=== PATIENT | female | born 1995 | race Caucasian/White ===

== ENCOUNTER → 2018-04-15 | Outpatient (CLI) | payer OTHER ==
[2018-04-15 12:08] LABS: BASO % 0.4 % (0.0-1.0); EOS # 0.2 10^3/uL (0.0-0.50); EOS % 2.5 % (0.0-3.0); HEMATOCRIT 36.4 % (36.0-47.0); HEMOGLOBIN 12.5 g/dl (12.0-15.5); IMMATURE GRANULOCYTE % 0.3 % (0-3.0); LYMPH # 1.6 10^3/uL (1.5-6.5); LYMPH % 24.3 % (24.0-44.0); MEAN CORPUSCULAR HEMOGLOBIN 31.3 pg (27.0-33.0); MEAN CORPUSCULAR HGB CONC 34.3 g/dl (32.0-36.5); MEAN CORPUSCULAR VOLUME 91.2 fl (80.0-96.0); MONO # 0.5 10^3/uL (0.0-0.8); NEUTROPHILS # 4.4 10^3/uL (1.8-7.7); NEUTROPHILS % 64.5 % (36.0-66.0); PLATELET COUNT, AUTOMATED 237 10^3/uL (150-450); RED BLOOD COUNT 3.99 10^6/uL (4.00-5.40); RED CELL DISTRIBUTION WIDTH 12.7 % (11.5-14.5); WHITE BLOOD COUNT 6.8 10^3/uL (4.0-10.0)
[2018-04-15 12:33] LABS: ESTIMATED AVERAGE GLUCOSE 100 MG/DL (60-110); HEMOGLOBIN A1c 5.1 %
[2018-04-15 12:37] LABS: ERYTHROCYTE SEDIMENTATION RATE 16 mm/hr (0-20)
[2018-04-15 13:21] LABS: ALBUMIN 3.8 GM/DL (3.2-5.2); ALBUMIN/GLOBULIN RATIO 1.15 (1.00-1.93); ALKALINE PHOSPHATASE 75 U/L (45-117); ALT/SGPT 23 U/L (12-78); ANION GAP 9 MEQ/L (8-16); AST/SGOT 12 U/L (7-37); BILIRUBIN,TOTAL 0.5 MG/DL (0.2-1.0); BLOOD UREA NITROGEN 11 MG/DL (7-18); C REACTIVE PROTEIN QUANTITATIV 0.55 MG/DL (0.00-0.30); CALCIUM LEVEL 8.8 MG/DL (8.5-10.1); CARBON DIOXIDE LEVEL 27 MEQ/L (21-32); CHLORIDE LEVEL 107 MEQ/L (98-107); CHOLESTEROL LEVEL 182 MG/DL (<200); CHOLESTEROL RISK RATIO 2.935 (<5); CREATININE FOR GFR 0.58 MG/DL (0.55-1.30); FREE T4 0.81 NG/DL (0.76-1.46); GLOMERULAR FILTRATION RATE > 60.0 (>60); GLUCOSE, FASTING 79 MG/DL (70-100); HDL CHOLESTEROL 62 MG/DL (>40); NON-HDL-C 120 MG/DL; SODIUM LEVEL 143 MEQ/L (136-145); THYROID STIMULATING HORMONE 0.775 uIU/ML (0.358-3.740); TOTAL PROTEIN 7.1 GM/DL (6.4-8.2); TRIGLYCERIDES LEVEL 85 MG/DL (<150)
== END ==
LOC: M WUC 10:41
DX: M54.42 Lumbago with sciatica, left side (principal); F33.1 Major depressive disorder, recurrent, moderate; Z68.30 Body mass index [BMI] 30.0-30.9, adult
CPT/HCPCS: 84443

== ENCOUNTER 2018-04-24 18:11 | Emergency (ER) | payer OTHER ==
[2018-04-24] MEDS: NS 1,000 ML IV (21:12)
[2018-04-24] MEDS: KETOROLAC 30 MG/ML VIAL (J1885) IV (21:13)
[2018-04-24] MEDS: ONDANSETRON 4MG/2ML VIAL (J2405) IV (21:13)
[2018-04-24 21:25] LABS: BASO % 0.2 % (0.0-1.0); EOS % 0.2 % (0.0-3.0); HEMATOCRIT 38.5 % (36.0-47.0); HEMOGLOBIN 13.1 g/dl (12.0-15.5); IMMATURE GRANULOCYTE % 0.4 % (0-3.0); LYMPH # 0.9 10^3/uL (1.5-6.5); LYMPH % 7.5 % (24.0-44.0); MEAN CORPUSCULAR HEMOGLOBIN 31.1 pg (27.0-33.0); MEAN CORPUSCULAR VOLUME 91.4 fl (80.0-96.0); MONO # 0.4 10^3/uL (0.0-0.8); MONO % 3.5 % (0.0-5.0); NEUTROPHILS # 10.9 10^3/uL (1.8-7.7); NEUTROPHILS % 88.2 % (36.0-66.0); PLATELET COUNT, AUTOMATED 216 10^3/uL (150-450); RED BLOOD COUNT 4.21 10^6/uL (4.00-5.40); RED CELL DISTRIBUTION WIDTH 12.7 % (11.5-14.5); WHITE BLOOD COUNT 12.4 10^3/uL (4.0-10.0)
[2018-04-24 21:46] LABS: CONTROL LINE HCG INT CTR LINE PRESENT; HCG, SERUM QUALITATIVE NEGATIVE (NEGATIVE)
[2018-04-24 21:54] LABS: ALBUMIN 4.1 GM/DL (3.2-5.2); ALBUMIN/GLOBULIN RATIO 0.98 (1.00-1.93); ALKALINE PHOSPHATASE 72 U/L (45-117); ALT/SGPT 18 U/L (12-78); ANION GAP 11 MEQ/L (8-16); AST/SGOT 13 U/L (7-37); BILIRUBIN,DIRECT 0.1 MG/DL (0.0-0.2); BILIRUBIN,TOTAL 0.5 MG/DL (0.2-1.0); BLOOD UREA NITROGEN 13 MG/DL (7-18); CALCIUM LEVEL 9.3 MG/DL (8.5-10.1); CARBON DIOXIDE LEVEL 26 MEQ/L (21-32); CHLORIDE LEVEL 104 MEQ/L (98-107); CREATININE FOR GFR 0.68 MG/DL (0.55-1.30); GLOMERULAR FILTRATION RATE > 60.0 (>60); GLUCOSE, FASTING 96 MG/DL (70-100); LIPASE 101 U/L (73-393); POTASSIUM SERUM 3.8 MEQ/L (3.5-5.1); SODIUM LEVEL 141 MEQ/L (136-145); TOTAL PROTEIN 8.3 GM/DL (6.4-8.2)
== END 2018-04-25 00:29 | disposition home or self-care (01) ==
LOC: M ED 04-25 00:29
DX: R13.19 Other dysphagia (principal); F31.9 Bipolar disorder, unspecified; Z79.899 Other long term (current) drug therapy; Z88.0 Allergy status to penicillin; Z88.8 Allergy status to other drugs, medicaments and biological substances
CPT/HCPCS: J2405

== ENCOUNTER → 2018-07-15 | Outpatient (REF) | payer MEDICAID ==
[2018-07-15 17:19] LABS: CHLAMYDIA DNA AMPLIFICATION NEGATIVE (NEGATIVE); GC DNA AMPLIFICATION NEGATIVE (NEGATIVE)
== END ==
LOC: M SFHCWAGY 13:35
DX: Z12.4 Encounter for screening for malignant neoplasm of cervix (principal); Z11.3 Encounter for screening for infections with a predominantly sexual mode of transmission
CPT/HCPCS: 88142

== ENCOUNTER → 2018-09-02 | Outpatient (CLI) | payer MEDICAID ==
[~2018-09-02] MED LIST: ABIL10TA9; CELE20TA; PROP10TA56
--- NOTE | 2018-09-02 15:01 | REP ---
Lumbar spine series: Five views. History: Pain. No known injury. Findings: Lumbar vertebral body heights are preserved. Alignment is normal. Pedicles and posterior elements are intact. There is no evidence of spondylolysis or spondylolisthesis. Disc spaces are maintained. Sacrum and SI joints are unremarkable as visualized. Psoas margins are symmetric. Impression: Negative lumbar spine radiographs. Electronically Signed by Justyn Lew MD 09/02/2018 02:51 P
== END ==
LOC: M WUC 14:25
PROVIDERS: ATTEND Physician Assistant
DX: M54.5 Low back pain (principal)

== ENCOUNTER → 2018-11-04 | Outpatient (CLI) | payer MEDICAID ==
--- NOTE | 2018-11-04 11:41 | REP ---
KUB, ONE VIEW: HISTORY: Epigastric pain. A small amount of air is present in small and large intestine. There are no air fluid levels or dilated loops of intestine. There is no pneumoperitoneum. A moderate amount of stool is present in the colon. IMPRESSION: Nonspecific bowel gas pattern. Electronically Signed by Wali Cheatham MD 11/04/2018 11:42 A
== END ==
LOC: M SMT 10:58
PROVIDERS: ATTEND Physician Assistant Medical
DX: R10.13 Epigastric pain (principal)

== ENCOUNTER → 2018-11-04 | Outpatient (REF) | payer MEDICAID ==
[2018-11-04 12:24] LABS: BASO % 0.3 % (0.0-1.0); EOS # 0.2 10^3/uL (0.0-0.50); EOS % 2.4 % (0.0-3.0); HEMATOCRIT 37.6 % (36.0-47.0); HEMOGLOBIN 12.6 g/dl (12.0-15.5); LYMPH # 1.9 10^3/uL (1.5-6.5); LYMPH % 22.4 % (24.0-44.0); MEAN CORPUSCULAR HEMOGLOBIN 30.1 pg (27.0-33.0); MEAN CORPUSCULAR HGB CONC 33.5 g/dl (32.0-36.5); MONO # 0.5 10^3/uL (0.0-0.8); MONO % 5.9 % (0.0-5.0); NEUTROPHILS # 5.9 10^3/uL (1.8-7.7); NEUTROPHILS % 68.8 % (36.0-66.0); PLATELET COUNT, AUTOMATED 223 10^3/uL (150-450); RED BLOOD COUNT 4.18 10^6/uL (4.00-5.40); WHITE BLOOD COUNT 8.6 10^3/uL (4.0-10.0)
[2018-11-04 12:40] LABS: ALBUMIN 3.8 GM/DL (3.2-5.2); ALT/SGPT 16 U/L (12-78); AMYLASE 38 U/L (25-115); BILIRUBIN,TOTAL 0.4 MG/DL (0.2-1.0); BLOOD UREA NITROGEN 7 MG/DL (7-18); CALCIUM LEVEL 8.4 MG/DL (8.5-10.1); CARBON DIOXIDE LEVEL 27 MEQ/L (21-32); CHLORIDE LEVEL 107 MEQ/L (98-107); CREATININE FOR GFR 0.59 MG/DL (0.55-1.30); GLOMERULAR FILTRATION RATE > 60.0 (>60); GLUCOSE, FASTING 89 MG/DL (70-100); LIPASE 106 U/L (73-393); POTASSIUM SERUM 3.8 MEQ/L (3.5-5.1); SODIUM LEVEL 140 MEQ/L (136-145); TOTAL PROTEIN 6.9 GM/DL (6.4-8.2)
== END ==
LOC: M SFHCPLAZ 10:12
PROVIDERS: ATTEND Physician Assistant Medical
DX: R10.13 Epigastric pain (principal)

== ENCOUNTER 2018-12-18 20:32 | Emergency (ER) | payer MEDICAID ==
[2018-12-18 21:05] VITALS: BP 139/85
== END 2018-12-18 21:54 | disposition home or self-care (01) ==
LOC: M ED 20:32
DX: F41.1 Generalized anxiety disorder (principal); F43.0 Acute stress reaction; F99 Mental disorder, not otherwise specified; F17.200 Nicotine dependence, unspecified, uncomplicated; Z88.0 Allergy status to penicillin; Z88.8 Allergy status to other drugs, medicaments and biological substances

== ENCOUNTER → 2018-12-30 | Outpatient (REF) | payer MEDICAID ==
[2018-12-30 16:55] LABS: BASO % 0.4 % (0.0-1.0); EOS # 0.3 10^3/uL (0.0-0.50); EOS % 2.9 % (0.0-3.0); HEMATOCRIT 37.4 % (36.0-47.0); HEMOGLOBIN 12.5 g/dl (12.0-15.5); LYMPH # 2.3 10^3/uL (1.5-6.5); LYMPH % 23.5 % (24.0-44.0); MEAN CORPUSCULAR HEMOGLOBIN 30.1 pg (27.0-33.0); MEAN CORPUSCULAR HGB CONC 33.4 g/dl (32.0-36.5); MEAN CORPUSCULAR VOLUME 90.1 fl (80.0-96.0); MONO # 0.6 10^3/uL (0.0-0.8); MONO % 6.2 % (0.0-5.0); NEUTROPHILS # 6.4 10^3/uL (1.8-7.7); NEUTROPHILS % 66.7 % (36.0-66.0); PLATELET COUNT, AUTOMATED 224 10^3/uL (150-450); RED BLOOD COUNT 4.15 10^6/uL (4.00-5.40); WHITE BLOOD COUNT 9.6 10^3/uL (4.0-10.0)
[2018-12-30 17:00] LABS: ALBUMIN 4.2 GM/DL (3.2-5.2); ALT/SGPT 15 U/L (12-78); BILIRUBIN,TOTAL 0.4 MG/DL (0.2-1.0); BLOOD UREA NITROGEN 12 MG/DL (7-18); CALCIUM LEVEL 8.9 MG/DL (8.5-10.1); CARBON DIOXIDE LEVEL 23 MEQ/L (21-32); CHLORIDE LEVEL 110 MEQ/L (98-107); CREATININE FOR GFR 0.64 MG/DL (0.55-1.30); GLOMERULAR FILTRATION RATE > 60.0 (>60); GLUCOSE, FASTING 99 MG/DL (70-100); POTASSIUM SERUM 3.6 MEQ/L (3.5-5.1); SODIUM LEVEL 140 MEQ/L (136-145)
[2018-12-30 20:36] LABS: ERYTHROCYTE SEDIMENTATION RATE 17 mm/hr (0-20)
== END ==
LOC: M SFHCPLAZ 14:15
PROVIDERS: ATTEND Physician Assistant Medical
DX: R10.13 Epigastric pain (principal); K61.0 Anal abscess

== ENCOUNTER → 2019-01-06 | Outpatient (CLI) | payer MEDICAID ==
[~2019-01-06] MED LIST changes: +GASTROGRAFIN SOLUTION 30ML (Q9963) As Ordered ONE; +ISOVUE-370 76% 100ML VIAL (Q9967) As Ordered ONE
--- NOTE | 2019-01-06 14:06 | REP ---
CT of the abdomen with bowel contrast followed by CT of the abdomen pelvis with IV and bowel contrast: There are no comparisons. The studies performed for epigastric pain. The visualized lung ellison are unremarkable. After IV contrast there are a small 6 ml hypodensity anteriorly in the dome of the hepatic right lobe and a small 5 mm hypodensity posteriorly in the dome of the hepatic right lobe. These are too small to further characterize. There are no comparison studies. The hepatic parenchyma is otherwise homogeneous. The gallbladder, pancreas and spleen are normal size, homogeneous and are all. The adrenals are unremarkable. There is no hydronephrosis. There are no renal calculi. There is no perinephric stranding. There are no solid or cystic renal masses. There is no bowel distension or obstruction. No inflammatory changes in the mesentery. There is diastases of the rectus abdominus with slight anterior bulging. Pelvis: The cecum is on a signed and mesentery and has turned posteriorly with the tip pointing cephalad. The appendix is positioned at the tip of the hepatic right lobe. The appendix has an unremarkable appearance. The uterus is unremarkable. The left adnexa is unremarkable. No right ovary is identified with certainty. This should be correlated with clinical history. There is no ascites or adenopathy. The bladder is unremarkable. There is L5 S1 degenerative disc disease. Impression: There are two small hepatic lesions as described, nonspecific and cannot be further characterized by CT. The appendix is adjacent to the inferior tip of the hepatic right lobe as an anatomic variant but otherwise unremarkable. The left ovary is unremarkable. The right ovary cannot be identified. There is no mass, adenopathy or ascites. No inflammatory changes in the mesentery. No hydronephrosis. No renal or ureteral calculi. L5 S1 degenerative disc disease. Electronically Signed by Ariel Costa MD 01/06/2019 01:57 P
== END ==
LOC: M RAD 11:13
PROVIDERS: ATTEND Physician Assistant Medical
DX: D13.4 Benign neoplasm of liver (principal); M51.37 Other intervertebral disc degeneration, lumbosacral region
CPT/HCPCS: 74178; Q9963; Q9967

== ENCOUNTER → 2019-01-21 | Outpatient (CLI) | payer MEDICAID ==
[~2019-01-21] MED LIST changes: -GASTROGRAFIN SOLUTION 30ML (Q9963) As Ordered ONE; -ISOVUE-370 76% 100ML VIAL (Q9967) As Ordered ONE
--- NOTE | 2019-01-21 12:31 | REP ---
ULTRASOUND LEFT THIGH: Real-time sonographic evaluation of the left medial thigh performed in the region of a palpable lump, where the patient is experiencing pain. No discrete sonographic abnormality is seen. There is no fluid collection. No cystic or solids mass is seen. IMPRESSION: Negative ultrasound medial left thigh at the site of the palpable lump and pain. Electronically Signed by Ariel Elkins MD 01/21/2019 02:14 P
== END ==
LOC: M RAD 10:31
PROVIDERS: ATTEND Physician Assistant Medical
DX: K61.0 Anal abscess (principal)

== ENCOUNTER 2019-03-04 10:23 | Emergency (ER) | payer MEDICAID ==
[~2019-03-04] VITALS: Ht 162.6 cm; Wt 76.5 kg
[2019-03-04] MEDS ORDERED: NS 1,000 ML IV ONE (11:15)
[2019-03-04 11:41] LABS: BASO % 0.5 % (0.0-1.0); EOS # 0.2 10^3/uL (0.0-0.50); EOS % 2.6 % (0.0-3.0); HEMATOCRIT 39.6 % (36.0-47.0); HEMOGLOBIN 13.1 g/dl (12.0-15.5); LYMPH # 1.8 10^3/uL (1.5-6.5); LYMPH % 26.7 % (24.0-44.0); MEAN CORPUSCULAR HEMOGLOBIN 29.9 pg (27.0-33.0); MEAN CORPUSCULAR HGB CONC 33.1 g/dl (32.0-36.5); MEAN CORPUSCULAR VOLUME 90.4 fl (80.0-96.0); MONO # 0.5 10^3/uL (0.0-0.8); MONO % 7.1 % (0.0-5.0); NEUTROPHILS # 4.2 10^3/uL (1.8-7.7); NEUTROPHILS % 62.9 % (36.0-66.0); PLATELET COUNT, AUTOMATED 213 10^3/uL (150-450); RED BLOOD COUNT 4.38 10^6/uL (4.00-5.40); WHITE BLOOD COUNT 6.6 10^3/uL (4.0-10.0)
[2019-03-04 12:08] LABS: ALBUMIN 4.3 GM/DL (3.2-5.2); ALT/SGPT 16 U/L (12-78); BILIRUBIN,DIRECT 0.1 MG/DL (0.0-0.2); BILIRUBIN,TOTAL 0.4 MG/DL (0.2-1.0); BLOOD UREA NITROGEN 9 MG/DL (7-18); CALCIUM LEVEL 9.1 MG/DL (8.5-10.1); CARBON DIOXIDE LEVEL 28 MEQ/L (21-32); CHLORIDE LEVEL 109 MEQ/L (98-107); CREATININE FOR GFR 0.59 MG/DL (0.55-1.30); GLOMERULAR FILTRATION RATE > 60.0 (>60); GLUCOSE, FASTING 92 MG/DL (70-100); LIPASE 94 U/L (73-393); POTASSIUM SERUM 4.4 MEQ/L (3.5-5.1); SODIUM LEVEL 142 MEQ/L (136-145); TOTAL PROTEIN 7.5 GM/DL (6.4-8.2)
[2019-03-04 12:17] LABS: HEPATITIS B SURFACE ANTIBODY POSITIVE (POSITIVE)
[2019-03-04 12:20] LABS: HCG, SERUM QUALITATIVE NEGATIVE (NEGATIVE)
[2019-03-04 12:28] LABS: HEPATITIS B SURFACE ANTIGEN NEGATIVE (NEGATIVE)
[2019-03-04 12:56] LABS: HEPATITIS C VIRUS ABY INDEX 0.7 INDEX (<0.8); HIV 1&2 SCREEN CENTAUR NEGATIVE (NEGATIVE)
[2019-03-04] MEDS ORDERED: FLUCONAZOLE 50MG TABLET PO ONE (14:30)
[2019-03-04 14:33] LABS: CHLAMYDIA DNA AMPLIFICATION NEGATIVE (NEGATIVE); GC DNA AMPLIFICATION NEGATIVE (NEGATIVE)
[2019-03-04 15:27] VITALS: BP 134/67
== END 2019-03-04 15:30 | disposition home or self-care (01) ==
LOC: M ED 10:23
DX: B37.3 Candidiasis of vulva and vagina (principal); T76.21XA Adult sexual abuse, suspected, initial encounter; R19.7 Diarrhea, unspecified; F41.9 Anxiety disorder, unspecified; F32.9 Major depressive disorder, single episode, unspecified; K59.00 Constipation, unspecified; F81.9 Developmental disorder of scholastic skills, unspecified; Z88.0 Allergy status to penicillin; Z88.8 Allergy status to other drugs, medicaments and biological substances

== ENCOUNTER 2019-03-06 14:54 | Emergency (ER) | payer MEDICAID ==
[~2019-03-06] VITALS: Ht 162.6 cm; Wt 75.7 kg
[2019-03-06] MEDS ORDERED: OMEP10CASR PO (15:04)
[2019-03-06 17:24] LABS: HEMATOCRIT 38.4 % (36.0-47.0); HEMOGLOBIN 12.6 g/dl (12.0-15.5); MEAN CORPUSCULAR HEMOGLOBIN 30.5 pg (27.0-33.0); MEAN CORPUSCULAR HGB CONC 32.8 g/dl (32.0-36.5); PLATELET COUNT, AUTOMATED 183 10^3/uL (150-450); RED BLOOD COUNT 4.13 10^6/uL (4.00-5.40); WHITE BLOOD COUNT 8.7 10^3/uL (4.0-10.0)
[2019-03-06 17:41] LABS: AMPHETAMINES LEVEL URINE NEGATIVE (NEGATIVE); BARBITURATES URINE NEGATIVE (NEGATIVE); BENZODIAZEPINES URINE NEGATIVE (NEGATIVE); CANNABINOIDS URINE NEGATIVE (NEGATIVE); COCAINE METABOLITE URINE NEGATIVE (NEGATIVE); METHADONE URINE NEGATIVE (NEGATIVE); OPIATES URINE NEGATIVE (NEGATIVE); PHENCYCLIDINE URINE NEGATIVE (NEGATIVE)
[2019-03-06 17:47] LABS: HCG, SERUM QUALITATIVE NEGATIVE (NEGATIVE)
[2019-03-06 18:07] LABS: ACETAMINOPHEN LEVEL < 2.0 UG/ML (10.0-30.0); ALBUMIN 4.2 GM/DL (3.2-5.2); ALT/SGPT 19 U/L (12-78); BILIRUBIN,DIRECT < 0.1 MG/DL (0.0-0.2); BILIRUBIN,TOTAL 0.2 MG/DL (0.2-1.0); BLOOD UREA NITROGEN 9 MG/DL (7-18); CALCIUM LEVEL 8.7 MG/DL (8.5-10.1); CARBON DIOXIDE LEVEL 26 MEQ/L (21-32); CHLORIDE LEVEL 107 MEQ/L (98-107); CREATININE FOR GFR 0.61 MG/DL (0.55-1.30); ETHYL ALCOHOL (ETHANOL) < 0.003 % (0.000-0.010); GLOMERULAR FILTRATION RATE > 60.0 (>60); GLUCOSE, FASTING 84 MG/DL (70-100); POTASSIUM SERUM 3.4 MEQ/L (3.5-5.1); SALICYLATE LEVEL < 1.7 MG/DL (5.0-30.0); SODIUM LEVEL 142 MEQ/L (136-145); THYROID STIMULATING HORMONE 0.677 uIU/ML (0.358-3.740); TOTAL PROTEIN 7.3 GM/DL (6.4-8.2)
[2019-03-06 19:25] VITALS: BP 123/65
== END 2019-03-06 19:28 | disposition home or self-care (01) ==
LOC: M ED 14:54
DX: F43.20 Adjustment disorder, unspecified (principal); F33.9 Major depressive disorder, recurrent, unspecified; F43.10 Post-traumatic stress disorder, unspecified; Z79.899 Other long term (current) drug therapy; Z88.0 Allergy status to penicillin; Z88.8 Allergy status to other drugs, medicaments and biological substances; Z87.891 Personal history of nicotine dependence
CPT/HCPCS: 36415; 80048; 80076; 80307; 84443; 84703; 85027; 99284; G0480

== ENCOUNTER → 2019-03-17 | Outpatient (REF) | payer MEDICAID ==
[~2019-03-17] MED LIST changes: +OMEP10CASR PO
[2019-03-17 16:59] LABS: AMORPHOUS SEDIMENT MODERATE (NEGATIVE); APPEARANCE, URINE TURBID (CLEAR); BACTERIA, URINE AUTO NEGATIVE (NEGATIVE); BILIRUBIN, URINE AUTO NEGATIVE (NEGATIVE); BLOOD, URINE BLOOD 1+ (NEGATIVE); COLOR, URINE YELLOW (YELLOW); GLUCOSE, URINE (UA) AUTO NEGATIVE (NEGATIVE); KETONE, URINE AUTO NEGATIVE (NEGATIVE); LEUKOCYTE ESTERASE, URINE AUTO NEGATIVE (NEGATIVE); NITRITE, URINE AUTO NEGATIVE (NEGATIVE); PROTEIN, URINE AUTO NEGATIVE (NEGATIVE); RBC, URINE AUTO 0 /HPF (0-3); SPECIFIC GRAVITY URINE AUTO 1.028 (1.002-1.035); SQUAMOUS EPITHELIAL CELL UR AU 0 /HPF (0-6); UROBILINOGEN, URINE AUTO 0.2 mg/dL (0.0-2.0); WBC, URINE AUTO 0 /HPF (0-3)
== END ==
LOC: M LAB REF 15:38
PROVIDERS: ATTEND Obstetrics & Gynecology
DX: R39.89 Other symptoms and signs involving the genitourinary system (principal)

== ENCOUNTER → 2019-03-25 | Outpatient (CLI) | payer MEDICAID ==
[~2019-03-25] MED LIST changes: +E-Z-GAS II EFFERVESCENT PACKET (SODIUM BICARB./CITRIC ACID/SIMETHICONE) As Ordered ONE; +E-Z-HD 98% w/w 340GM SUSP BTL As Ordered ONE; +E-Z-PAQUE 96% w/w SUSP 176GM BTL As Ordered ONE
--- NOTE | 2019-03-25 17:30 | REP ---
UPPER GI AIR CONTRAST AND SMALL BOWEL FOLLOW THROUGH The procedure was performed under the direct supervision of Dr. Costa. The images were reviewed with Dr. Costa The furnace operator oil or gas film shows no organomegaly or pathological masses. The intestinal gas pattern is non-specific. Liquid barium and gas producing crystals were given in the erect position as well as liquid barium in the prone oblique position in order to perform a double contrast upper GI examination. Additionally liquid barium was given at the end of the examination in order to perform a small bowel follow through. The oral and pharyngeal stages of deglutition are unremarkable. Esophageal transport is prompt and efficient and there is no esophagitis, stricture, mucosal ring or hiatal hernia. Gastroesophageal reflux is not demonstrated on this examination. In The stomach lopez are normally outlined . The rugal folds are smooth and regular. There is no gastritis neoplasm or ulcer disease. The duodenal lpoez are normally outlined . The mucosal folds are smooth and regular. There is no duodenitis pancreatitis peptic ulcer disease or neoplasm. The visualized portion of the proximal small bowel appears normal in course and caliber. The barium column was followed through the small bowel to the level of the terminal ileum. Small bowel transit time is approximately 15 minutes . During fluoroscopy gentle palpation shows all loops are freely movable and pliable. There are no fixed or angulated loops. The small bowel mucosal pattern is normal in course and caliber. There is no transition to suggest a partial small-bowel obstruction. Spot filming of the terminal ileum shows it to be unremarkable. Impression: Essentially unremarkable double contrast upper GI and small bowel follow through examination. 1.6 minutes of fluoro time was utilized for this procedure. Reviewed by CK Niño 03/25/2019 04:23 P Electronically Signed by Ariel Costa MD 03/25/2019 05:21 P
== END ==
LOC: M RAD 09:33
PROVIDERS: ATTEND Physician Assistant Medical
DX: R10.13 Epigastric pain (principal)

== ENCOUNTER → 2019-04-03 | Outpatient (REF) | payer MEDICAID ==
[~2019-04-03] MED LIST changes: -E-Z-GAS II EFFERVESCENT PACKET (SODIUM BICARB./CITRIC ACID/SIMETHICONE) As Ordered ONE; -E-Z-HD 98% w/w 340GM SUSP BTL As Ordered ONE; -E-Z-PAQUE 96% w/w SUSP 176GM BTL As Ordered ONE
[2019-04-03 13:04] LABS: APPEARANCE, URINE HAZY (CLEAR); BACTERIA, URINE AUTO NEGATIVE (NEGATIVE); BILIRUBIN, URINE AUTO NEGATIVE (NEGATIVE); BLOOD, URINE BLOOD NEGATIVE (NEGATIVE); COLOR, URINE YELLOW (YELLOW); GLUCOSE, URINE (UA) AUTO NEGATIVE (NEGATIVE); KETONE, URINE AUTO NEGATIVE (NEGATIVE); LEUKOCYTE ESTERASE, URINE AUTO NEGATIVE (NEGATIVE); MUCUS, URINE SMALL (NEGATIVE); NITRITE, URINE AUTO NEGATIVE (NEGATIVE); PROTEIN, URINE AUTO NEGATIVE (NEGATIVE); RBC, URINE AUTO 4 /HPF (0-3); SPECIFIC GRAVITY URINE AUTO 1.025 (1.002-1.035); SQUAMOUS EPITHELIAL CELL UR AU 5 /HPF (0-6); UROBILINOGEN, URINE AUTO 0.2 mg/dL (0.0-2.0); WBC, URINE AUTO 1 /HPF (0-3)
== END ==
LOC: M SFHCPLAZ 12:23
PROVIDERS: ATTEND Physician Assistant Medical
DX: R30.0 Dysuria (principal)

== ENCOUNTER → 2019-05-01 | Outpatient (REF) | payer MEDICAID ==
[2019-05-01 14:02] LABS: APPEARANCE, URINE HAZY (CLEAR); BACTERIA, URINE AUTO 1+ (NEGATIVE); BILIRUBIN, URINE AUTO NEGATIVE (NEGATIVE); BLOOD, URINE BLOOD 1+ (NEGATIVE); COLOR, URINE YELLOW (YELLOW); GLUCOSE, URINE (UA) AUTO NEGATIVE (NEGATIVE); KETONE, URINE AUTO NEGATIVE (NEGATIVE); LEUKOCYTE ESTERASE, URINE AUTO NEGATIVE (NEGATIVE); MUCUS, URINE SMALL (NEGATIVE); NITRITE, URINE AUTO NEGATIVE (NEGATIVE); PROTEIN, URINE AUTO NEGATIVE (NEGATIVE); RBC, URINE AUTO 7 /HPF (0-3); SQUAMOUS EPITHELIAL CELL UR AU 4 /HPF (0-6); UROBILINOGEN, URINE AUTO 0.2 mg/dL (0.0-2.0); WBC, URINE AUTO 1 /HPF (0-3)
[2019-05-01 15:08] LABS: CHLAMYDIA DNA AMPLIFICATION NEGATIVE (NEGATIVE); GC DNA AMPLIFICATION NEGATIVE (NEGATIVE)
== END ==
LOC: M LAB REF 12:46
PROVIDERS: ATTEND Physician Assistant
DX: N76.0 Acute vaginitis (principal)

== ENCOUNTER 2019-08-08 22:41 | Emergency (ER) | payer MEDICAID ==
[~2019-08-08] VITALS: Ht 162.6 cm; Wt 81.8 kg
[2019-08-08] MEDS ORDERED: GI COCKTAIL 50ML BTL(HYOSCYAMINE/MAALOX/LIDOCAINE VISCOUS)(1:3:1) PO ONE (23:15)
[2019-08-08] MEDS ORDERED: METOCLOPRAMIDE INJ 10MG/2ML VIAL (J2765) IV ONE (23:15)
[2019-08-08] MEDS ORDERED: NS 1,000 ML IV ONE (23:15)
[2019-08-08 23:30] LABS: BASO % 0.3 % (0.0-1.0); EOS # 0.1 10^3/uL (0.0-0.5); EOS % 0.6 % (0.0-3.0); HEMATOCRIT 42.2 % (36.0-47.0); HEMOGLOBIN 14.3 g/dl (12.0-15.5); LYMPH # 0.7 10^3/uL (1.5-5.0); MEAN CORPUSCULAR HEMOGLOBIN 30.3 pg (27.0-33.0); MEAN CORPUSCULAR HGB CONC 33.9 g/dl (32.0-36.5); MEAN CORPUSCULAR VOLUME 89.4 fl (80.0-96.0); MONO # 0.8 10^3/uL (0.0-0.8); MONO % 5.5 % (0.0-5.0); NEUTROPHILS # 12.6 10^3/uL (1.5-8.5); NEUTROPHILS % 88.3 % (36.0-66.0); PLATELET COUNT, AUTOMATED 213 10^3/uL (150-450); RED BLOOD COUNT 4.72 10^6/uL (4.00-5.40); WHITE BLOOD COUNT 14.3 10^3/uL (4.0-10.0)
[2019-08-08 23:57] LABS: ALBUMIN 4.2 GM/DL (3.2-5.2); ALT/SGPT 13 U/L (12-78); BILIRUBIN,DIRECT 0.2 MG/DL (0.0-0.2); BILIRUBIN,TOTAL 0.6 MG/DL (0.2-1.0); BLOOD UREA NITROGEN 13 MG/DL (7-18); CALCIUM LEVEL 8.9 MG/DL (8.5-10.1); CARBON DIOXIDE LEVEL 24 MEQ/L (21-32); CHLORIDE LEVEL 107 MEQ/L (98-107); CREATININE FOR GFR 0.69 MG/DL (0.55-1.30); GLOMERULAR FILTRATION RATE > 60.0 (>60); GLUCOSE, FASTING 101 MG/DL (70-100); LIPASE 79 U/L (73-393); SODIUM LEVEL 141 MEQ/L (136-145); TOTAL PROTEIN 7.5 GM/DL (6.4-8.2)
[2019-08-09] MEDS ORDERED: REGL10TA6 PO (00:53)
[2019-08-09 01:19] VITALS: BP 110/66
[2019-08-09] MEDS ORDERED: MORPHINE 2 MG/ML 1ML VIAL (J2270) IV ONE (01:30)
== END 2019-08-09 01:23 | disposition home or self-care (01) ==
LOC: M ED 22:41
DX: A08.4 Viral intestinal infection, unspecified (principal); F43.10 Post-traumatic stress disorder, unspecified; K59.00 Constipation, unspecified; K21.9 Gastro-esophageal reflux disease without esophagitis; Z88.0 Allergy status to penicillin; Z88.8 Allergy status to other drugs, medicaments and biological substances
CPT/HCPCS: 80048; 80076; 83690; 85025; 87040; 87507; 96361; 96374; 99284; J2765

== ENCOUNTER → 2019-08-25 | Outpatient (REF) | payer MEDICAID ==
[~2019-08-25] MED LIST changes: +REGL10TA6 PO
[2019-08-25 13:09] LABS: APPEARANCE, URINE HAZY (CLEAR); BACTERIA, URINE AUTO NEGATIVE (NEGATIVE); BILIRUBIN, URINE AUTO NEGATIVE (NEGATIVE); BLOOD, URINE BLOOD NEGATIVE (NEGATIVE); COLOR, URINE YELLOW (YELLOW); GLUCOSE, URINE (UA) AUTO NEGATIVE (NEGATIVE); KETONE, URINE AUTO NEGATIVE (NEGATIVE); LEUKOCYTE ESTERASE, URINE AUTO NEGATIVE (NEGATIVE); MUCUS, URINE SMALL (NEGATIVE); NITRITE, URINE AUTO NEGATIVE (NEGATIVE); PROTEIN, URINE AUTO NEGATIVE (NEGATIVE); RBC, URINE AUTO 4 /HPF (0-3); SPECIFIC GRAVITY URINE AUTO 1.023 (1.002-1.035); SQUAMOUS EPITHELIAL CELL UR AU 8 /HPF (0-6); UROBILINOGEN, URINE AUTO 0.2 mg/dL (0.0-2.0); WBC, URINE AUTO 0 /HPF (0-3)
== END ==
LOC: M LAB REF 12:45
PROVIDERS: ATTEND Physician Assistant Medical
DX: N39.0 Urinary tract infection, site not specified (principal)

== ENCOUNTER → 2019-09-18 | Outpatient (REF) | payer MEDICAID ==
[2019-09-18 21:51] LABS: CHLAMYDIA DNA AMPLIFICATION NEGATIVE (NEGATIVE); GC DNA AMPLIFICATION NEGATIVE (NEGATIVE)
[2019-09-21 11:42] LABS: HIV 1&2 SCREEN CENTAUR NEGATIVE (NEGATIVE)
== END ==
LOC: M LAB REF 18:25
PROVIDERS: ATTEND Physician Assistant
DX: N89.8 Other specified noninflammatory disorders of vagina (principal); Z11.3 Encounter for screening for infections with a predominantly sexual mode of transmission

== ENCOUNTER → 2019-12-10 | Outpatient (REF) | payer MEDICAID ==
[2019-12-10 15:18] LABS: BASO % 0.4 % (0.0-1.0); EOS # 0.2 10^3/uL (0.0-0.5); EOS % 2.8 % (0.0-3.0); HEMATOCRIT 39.7 % (36.0-47.0); HEMOGLOBIN 13.2 g/dl (12.0-15.5); LYMPH # 2.1 10^3/uL (1.5-5.0); MEAN CORPUSCULAR HGB CONC 33.2 g/dl (32.0-36.5); MEAN CORPUSCULAR VOLUME 90.2 fl (80.0-96.0); MONO # 0.5 10^3/uL (0.0-0.8); MONO % 7.5 % (0.0-5.0); NEUTROPHILS # 4.2 10^3/uL (1.5-8.5); PLATELET COUNT, AUTOMATED 233 10^3/uL (150-450); WHITE BLOOD COUNT 7.1 10^3/uL (4.0-10.0)
[2019-12-10 15:37] LABS: ALBUMIN 4.1 GM/DL (3.2-5.2); ALT/SGPT 31 U/L (12-78); BILIRUBIN,TOTAL 0.4 MG/DL (0.2-1.0); BLOOD UREA NITROGEN 9 MG/DL (7-18); CALCIUM LEVEL 8.9 MG/DL (8.5-10.1); CARBON DIOXIDE LEVEL 25 MEQ/L (21-32); CHLORIDE LEVEL 107 MEQ/L (98-107); CHOLESTEROL LEVEL 193 MG/DL (<200); CHOLESTEROL RISK RATIO 2.718 (<5); CREATININE FOR GFR 0.66 MG/DL (0.55-1.30); FREE T4 0.94 NG/DL (0.76-1.46); GLOMERULAR FILTRATION RATE > 60.0 (>60); GLUCOSE, FASTING 88 MG/DL (70-100); HDL CHOLESTEROL 71 MG/DL (>40); LDL CHOLESTEROL 104 MG/DL (<100); NON-HDL-C 122 MG/DL; POTASSIUM SERUM 4.1 MEQ/L (3.5-5.1); SODIUM LEVEL 139 MEQ/L (136-145); TOTAL 25(OH) VITAMIN D 17.9 NG/ML (30.0-100.0); TOTAL PROTEIN 7.5 GM/DL (6.4-8.2); TRIGLYCERIDES LEVEL 89 MG/DL (<150)
[2019-12-10 15:39] LABS: HEMOGLOBIN A1c 4.9 %
== END ==
LOC: M LAB REF 14:42
PROVIDERS: ATTEND Nurse Practitioner Family
DX: F41.8 Other specified anxiety disorders (principal); Z13.9 Encounter for screening, unspecified; D17.24 Benign lipomatous neoplasm of skin and subcutaneous tissue of left leg; R10.2 Pelvic and perineal pain

== ENCOUNTER → 2019-12-22 | Outpatient (REF) | payer MEDICAID | LOC: M LAB REF 14:28 | PROVIDERS: ATTEND Surgery | DX: R22.42 Localized swelling, mass and lump, left lower limb (principal) ==

== ENCOUNTER 2019-12-25 12:36 | Emergency (ER) | payer MEDICAID ==
[~2019-12-25] VITALS: Ht 162.6 cm; Wt 72.8 kg
[2019-12-25] MEDS ORDERED: SERT25TA21 (12:43)
[2019-12-25 13:30] LABS: BASO % 0.2 % (0.0-1.0); EOS # 0.1 10^3/uL (0.0-0.5); EOS % 1.4 % (0.0-3.0); HEMATOCRIT 39.5 % (36.0-47.0); LYMPH # 2.1 10^3/uL (1.5-5.0); LYMPH % 25.1 % (24.0-44.0); MEAN CORPUSCULAR HEMOGLOBIN 30.2 pg (27.0-33.0); MEAN CORPUSCULAR HGB CONC 32.9 g/dl (32.0-36.5); MEAN CORPUSCULAR VOLUME 91.6 fl (80.0-96.0); MONO # 0.6 10^3/uL (0.0-0.8); MONO % 7.2 % (0.0-5.0); NEUTROPHILS # 5.5 10^3/uL (1.5-8.5); NEUTROPHILS % 65.9 % (36.0-66.0); PLATELET COUNT, AUTOMATED 203 10^3/uL (150-450); RED BLOOD COUNT 4.31 10^6/uL (4.00-5.40); WHITE BLOOD COUNT 8.3 10^3/uL (4.0-10.0)
[2019-12-25 13:53] LABS: ERYTHROCYTE SEDIMENTATION RATE 15 mm/hr (0-20)
[2019-12-25] MEDS ORDERED: IBUPROFEN 600 MG TAB PO ONE (14:30)
--- NOTE | 2019-12-25 14:35 | REP ---
REASON: Incisional groin pain. PRIORS: None. Ultrasonographic evaluation over an incision site shows a 1.4 x 0.5 x 0.7 cm sized possible fluid collection. Electronically Signed by Cecil Ewing DO 12/25/2019 04:11 P
[2019-12-25 15:18] VITALS: BP 104/55
--- NOTE | 2019-12-26 17:03 | ED PDOC ---
Post-Departure Follow-Up betty matthew and dr goldstein faxed formal report of extrem us for fu Conchita Louise MD December 26, 2019 17:03
== END 2019-12-25 15:43 | disposition home or self-care (01) ==
LOC: M ED 12:36
DX: Z48.01 Encounter for change or removal of surgical wound dressing (principal); Z98.890 Other specified postprocedural states; F20.9 Schizophrenia, unspecified; F42.9 Obsessive-compulsive disorder, unspecified; F41.9 Anxiety disorder, unspecified; F32.9 Major depressive disorder, single episode, unspecified; F17.200 Nicotine dependence, unspecified, uncomplicated; Z79.899 Other long term (current) drug therapy

== ENCOUNTER → 2020-02-25 | Outpatient (REF) | payer MEDICAID ==
[~2020-02-25] MED LIST changes: +SERT25TA21
[2020-02-25 18:45] LABS: BASO % 0.4 % (0.0-1.0); EOS # 0.2 10^3/uL (0.0-0.5); EOS % 2.5 % (0.0-3.0); HEMATOCRIT 39.8 % (36.0-47.0); LYMPH # 2.6 10^3/uL (1.5-5.0); LYMPH % 33.6 % (24.0-44.0); MEAN CORPUSCULAR HEMOGLOBIN 30.2 pg (27.0-33.0); MEAN CORPUSCULAR HGB CONC 32.7 g/dl (32.0-36.5); MEAN CORPUSCULAR VOLUME 92.3 fl (80.0-96.0); MONO # 0.5 10^3/uL (0.0-0.8); MONO % 6.7 % (0.0-5.0); NEUTROPHILS # 4.3 10^3/uL (1.5-8.5); NEUTROPHILS % 56.5 % (36.0-66.0); PLATELET COUNT, AUTOMATED 205 10^3/uL (150-450); RED BLOOD COUNT 4.31 10^6/uL (4.00-5.40); WHITE BLOOD COUNT 7.6 10^3/uL (4.0-10.0)
[2020-02-25 19:03] LABS: APPEARANCE, URINE CLEAR (CLEAR); BACTERIA, URINE AUTO NEGATIVE (NEGATIVE); BILIRUBIN, URINE AUTO NEGATIVE (NEGATIVE); BLOOD, URINE BLOOD NEGATIVE (NEGATIVE); COLOR, URINE YELLOW (YELLOW); GLUCOSE, URINE (UA) AUTO NEGATIVE (NEGATIVE); KETONE, URINE AUTO NEGATIVE (NEGATIVE); LEUKOCYTE ESTERASE, URINE AUTO NEGATIVE (NEGATIVE); MUCUS, URINE SMALL (NEGATIVE); NITRITE, URINE AUTO NEGATIVE (NEGATIVE); PROTEIN, URINE AUTO NEGATIVE (NEGATIVE); RBC, URINE AUTO 0 /HPF (0-3); SPECIFIC GRAVITY URINE AUTO 1.025 (1.002-1.035); SQUAMOUS EPITHELIAL CELL UR AU 3 /HPF (0-6); UROBILINOGEN, URINE AUTO 0.2 mg/dL (0.0-2.0); WBC, URINE AUTO 0 /HPF (0-3)
[2020-02-25 19:07] LABS: ALBUMIN 4.3 GM/DL (3.2-5.2); ALT/SGPT 14 U/L (12-78); BILIRUBIN,TOTAL 0.4 MG/DL (0.2-1.0); BLOOD UREA NITROGEN 11 MG/DL (7-18); CALCIUM LEVEL 9.3 MG/DL (8.5-10.1); CARBON DIOXIDE LEVEL 29 MEQ/L (21-32); CHLORIDE LEVEL 107 MEQ/L (98-107); GLOMERULAR FILTRATION RATE > 60.0 (>60); GLUCOSE, FASTING 80 MG/DL (70-100); POTASSIUM SERUM 4.3 MEQ/L (3.5-5.1); SODIUM LEVEL 139 MEQ/L (136-145); TOTAL PROTEIN 7.7 GM/DL (6.4-8.2)
[2020-02-25 20:08] LABS: CHLAMYDIA DNA AMPLIFICATION NEGATIVE (NEGATIVE); GC DNA AMPLIFICATION NEGATIVE (NEGATIVE)
[2020-02-26 09:30] LABS: HIV 1&2 SCREEN CENTAUR NEGATIVE (NEGATIVE)
== END ==
LOC: M LAB REF 17:35
PROVIDERS: ATTEND Nurse Practitioner Family
DX: Z11.3 Encounter for screening for infections with a predominantly sexual mode of transmission (principal); R30.0 Dysuria

== ENCOUNTER 2020-03-11 09:17 | Emergency (ER) | payer MEDICAID ==
[~2020-03-11] VITALS: Ht 162.6 cm; Wt 74.4 kg
[2020-03-11 09:54] LABS: HEMATOCRIT 38.3 % (36.0-47.0); HEMOGLOBIN 12.7 g/dl (12.0-15.5); MEAN CORPUSCULAR HEMOGLOBIN 30.1 pg (27.0-33.0); MEAN CORPUSCULAR HGB CONC 33.2 g/dl (32.0-36.5); MEAN CORPUSCULAR VOLUME 90.8 fl (80.0-96.0); PLATELET COUNT, AUTOMATED 197 10^3/uL (150-450); RED BLOOD COUNT 4.22 10^6/uL (4.00-5.40); WHITE BLOOD COUNT 7.1 10^3/uL (4.0-10.0)
--- NOTE | 2020-03-11 13:07 | REP ---
REASON: Vaginal bleeding. Transvesical and transvaginal imaging was obtained. The uterus measures 8.4 x 3.9 x 4.9 cm. The parenchymal echo pattern is within normal limits. Within the endometrial cavity, there is a tiny anechoic structure suggesting a 4 week 6 day gestational sac. There is no echogenic material or yolk sac within this small anechoic structure, which does not have increased echoes surrounding it that would suggest a decidual reaction at this time on the images provided. The right ovary was not seen. No right adnexal mass was identified. Left ovary, 3.5 x 3.1 x 3.6 cm, within normal limits with an RI 0.37. Doppler of the potential gestational sac showed no cardiac activity. IMPRESSION: Possible early gestational sac versus blighted ovum, as described above. Followup is recommended. Electronically Signed by Cecil Ewing DO 03/11/2020 05:00 P
[2020-03-11 14:09] VITALS: BP 123/63
[2020-03-11 14:41] LABS: CHLAMYDIA DNA AMPLIFICATION NEGATIVE (NEGATIVE); GC DNA AMPLIFICATION NEGATIVE (NEGATIVE)
== END 2020-03-11 14:10 | disposition home or self-care (01) ==
LOC: M ED 09:17
DX: O20.0 Threatened abortion (principal); Z87.59 Personal history of other complications of pregnancy, childbirth and the puerperium; Z3A.00 Weeks of gestation of pregnancy not specified; Z79.899 Other long term (current) drug therapy; Z88.0 Allergy status to penicillin; Z88.8 Allergy status to other drugs, medicaments and biological substances

== ENCOUNTER → 2020-03-21 | Outpatient (CLI) | payer MEDICAID ==
[~2020-03-21] MED LIST changes: +COLA100C5 PO; +OMEP1CAP73 PO; +PRENTAB9 PO
--- NOTE | 2020-05-13 15:44 | REP ---
OBSTETRIC ULTRASOUND FOR DATING AND VIABILITY, UNKNOWN LAST MENSTRUAL PERIOD (LMP) FINDINGS: There is an intrauterine gestational sac with a pole. The pole crown-rump length is 5 mm corresponding to 6 weeks 2 days gestational age. The estimated date of confinement (EDC) is 11/12/2020. The heart rate is 113 beats per minute. motion is identified. There is no subchorionic hematoma. There is a normal size yolk sac measuring 2.4 mm. The right ovary could not be visualized. The left ovary measures 4.0 x 2.3 x 2.7 cm and is normal size. There is a left ovarian cyst, likely a corpus luteum measuring 1.0 x 2.3 x 1.4 cm. There is no free fluid in the pelvis. MTDD
== END ==
LOC: M WHC 10:14
PROVIDERS: ATTEND Nurse Practitioner Family
DX: Z34.81 Encounter for supervision of other normal pregnancy, first trimester (principal); Z3A.01 Less than 8 weeks gestation of pregnancy

== ENCOUNTER 2020-04-08 10:45 | Emergency (ER) | payer MEDICAID ==
[~2020-04-08 10:45] MED LIST changes: -COLA100C5 PO; -OMEP1CAP73 PO; -PRENTAB9 PO
[2020-04-08] MEDS ORDERED: ONDANSETRON 4MG/2ML VIAL ONE (11:17)
[2020-04-08] MEDS ORDERED: ONDANSETRON 4MG/2ML VIAL As Ordered ONE (11:17)
[2020-04-08] MEDS ORDERED: GI COCKTAIL 50ML BTL(HYOSCYAMINE/MAALOX/LIDOCAINE VISCOUS)(1:3:1) As Ordered ONE (14:00)
[2020-04-08] MEDS ORDERED: GI COCKTAIL 50ML BTL(HYOSCYAMINE/MAALOX/LIDOCAINE VISCOUS)(1:3:1) ONE (14:00)
--- NOTE | 2020-05-06 13:30 | ECGEPIP ---
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
[2020-05-14 12:33] LABS: CHLAMYDIA DNA AMPLIFICATION NEGATIVE (NEGATIVE); GC DNA AMPLIFICATION NEGATIVE (NEGATIVE)
[2020-05-23 11:14] LABS: BASO % 0.4 % (0.0-1.0); EOS # 0.1 10^3/uL (0.0-0.5); EOS % 1.7 % (0.0-3.0); HEMATOCRIT 37.2 % (36.0-47.0); HEMOGLOBIN 12.6 g/dl (12.0-15.5); LYMPH # 1.5 10^3/uL (1.5-5.0); LYMPH % 21.2 % (24.0-44.0); MEAN CORPUSCULAR HEMOGLOBIN 30.7 pg (27.0-33.0); MEAN CORPUSCULAR HGB CONC 33.9 g/dl (32.0-36.5); MEAN CORPUSCULAR VOLUME 90.5 fl (80.0-96.0); MONO # 0.5 10^3/uL (0.0-0.8); MONO % 6.9 % (0.0-5.0); NEUTROPHILS # 5.1 10^3/uL (1.5-8.5); NEUTROPHILS % 69.5 % (36.0-66.0); PLATELET COUNT, AUTOMATED 192 10^3/uL (150-450); RED BLOOD COUNT 4.11 10^6/uL (4.00-5.40); WHITE BLOOD COUNT 7.3 10^3/uL (4.0-10.0)
[2020-05-23 13:45] LABS: APPEARANCE, URINE CLEAR (CLEAR); BACTERIA, URINE AUTO NEGATIVE (NEGATIVE); BILIRUBIN, URINE AUTO NEGATIVE (NEGATIVE); BLOOD, URINE BLOOD NEGATIVE (NEGATIVE); COLOR, URINE YELLOW (YELLOW); GLUCOSE, URINE (UA) AUTO NEGATIVE (NEGATIVE); KETONE, URINE AUTO NEGATIVE (NEGATIVE); LEUKOCYTE ESTERASE, URINE AUTO NEGATIVE (NEGATIVE); MUCUS, URINE SMALL (NEGATIVE); NITRITE, URINE AUTO NEGATIVE (NEGATIVE); PROTEIN, URINE AUTO NEGATIVE (NEGATIVE); RBC, URINE AUTO 0 /HPF (0-3); SPECIFIC GRAVITY URINE AUTO 1.021 (1.002-1.035); SQUAMOUS EPITHELIAL CELL UR AU 5 /HPF (0-6); UROBILINOGEN, URINE AUTO 0.2 mg/dL (0.0-2.0); WBC, URINE AUTO 1 /HPF (0-3)
== END 2020-04-08 15:01 | disposition home or self-care (01) ==
LOC: M ED 10:45
DX: O21.9 Vomiting of pregnancy, unspecified (principal); O26.91 Pregnancy related conditions, unspecified, first trimester; Z88.0 Allergy status to penicillin; Z88.8 Allergy status to other drugs, medicaments and biological substances; Z3A.09 9 weeks gestation of pregnancy; Z79.899 Other long term (current) drug therapy
CPT/HCPCS: 76705; 76801; 80048; 80076; 81001; 82150; 83690; 84702; 85025; 86850; 86900; 86901; 87086; 87210; 87491; 87591; 93005; 96374; 99284; J2405

== ENCOUNTER 2020-04-11 16:38 | Emergency (ER) | payer MEDICAID ==
[2020-04-11] MEDS ORDERED: METOCLOPRAMIDE INJ 10MG/2ML VIAL (J2765 PER 1) ONE (18:18)
[2020-04-11] MEDS ORDERED: ACETAMINOPHEN 500 MG TAB ONE (19:49)
[2020-05-14 10:17] LABS: CHLAMYDIA DNA AMPLIFICATION NEGATIVE (NEGATIVE); GC DNA AMPLIFICATION NEGATIVE (NEGATIVE)
[2020-05-24 11:31] LABS: APPEARANCE, URINE HAZY (CLEAR); BACTERIA, URINE AUTO NEGATIVE (NEGATIVE); BILIRUBIN, URINE AUTO NEGATIVE (NEGATIVE); BLOOD, URINE BLOOD NEGATIVE (NEGATIVE); COLOR, URINE YELLOW (YELLOW); GLUCOSE, URINE (UA) AUTO NEGATIVE (NEGATIVE); KETONE, URINE AUTO 1+ mg/dL (NEGATIVE); LEUKOCYTE ESTERASE, URINE AUTO NEGATIVE (NEGATIVE); MUCUS, URINE SMALL (NEGATIVE); NITRITE, URINE AUTO NEGATIVE (NEGATIVE); PROTEIN, URINE AUTO NEGATIVE (NEGATIVE); RBC, URINE AUTO 2 /HPF (0-3); SPECIFIC GRAVITY URINE AUTO 1.028 (1.002-1.035); SQUAMOUS EPITHELIAL CELL UR AU 3 /HPF (0-6); UROBILINOGEN, URINE AUTO 0.2 mg/dL (0.0-2.0); WBC, URINE AUTO 2 /HPF (0-3)
[2020-05-26 12:56] LABS: BASO % 0.2 % (0.0-1.0); EOS # 0.1 10^3/uL (0.0-0.5); HEMATOCRIT 34.2 % (36.0-47.0); HEMOGLOBIN 11.8 g/dl (12.0-15.5); LYMPH # 1.9 10^3/uL (1.5-5.0); MEAN CORPUSCULAR HEMOGLOBIN 31.2 pg (27.0-33.0); MEAN CORPUSCULAR HGB CONC 34.5 g/dl (32.0-36.5); MEAN CORPUSCULAR VOLUME 90.5 fl (80.0-96.0); MONO # 0.6 10^3/uL (0.0-0.8); MONO % 6.3 % (0.0-5.0); NEUTROPHILS # 6.5 10^3/uL (1.5-8.5); NEUTROPHILS % 71.3 % (36.0-66.0); PLATELET COUNT, AUTOMATED 167 10^3/uL (150-450); RED BLOOD COUNT 3.78 10^6/uL (4.00-5.40); WHITE BLOOD COUNT 9.1 10^3/uL (4.0-10.0)
[2020-07-03 16:16] LABS: ALBUMIN 3.8 GM/DL (3.2-5.2); ALT/SGPT 15 U/L (12-78); BILIRUBIN,DIRECT 0.2 MG/DL (0.0-0.2); BILIRUBIN,TOTAL 0.5 MG/DL (0.2-1.0); BLOOD UREA NITROGEN 8 MG/DL (7-18); CALCIUM LEVEL 9.3 MG/DL (8.5-10.1); CARBON DIOXIDE LEVEL 25 MEQ/L (21-32); CHLORIDE LEVEL 106 MEQ/L (98-107); CREATININE FOR GFR 0.52 MG/DL (0.55-1.30); GLOMERULAR FILTRATION RATE > 60.0 (>60); GLUCOSE, FASTING 75 MG/DL (70-100); LIPASE 64 U/L (73-393); POTASSIUM SERUM 3.7 MEQ/L (3.5-5.1); SODIUM LEVEL 138 MEQ/L (136-145); TOTAL PROTEIN 7.3 GM/DL (6.4-8.2)
== END 2020-04-11 23:30 | disposition home or self-care (01) ==
LOC: M ED 16:38
DX: O23.41 Unspecified infection of urinary tract in pregnancy, first trimester (principal); Z3A.09 9 weeks gestation of pregnancy; Z87.59 Personal history of other complications of pregnancy, childbirth and the puerperium; Z79.899 Other long term (current) drug therapy; Z88.0 Allergy status to penicillin; Z88.8 Allergy status to other drugs, medicaments and biological substances
CPT/HCPCS: 76801; 80048; 80076; 81001; 83690; 84702; 85025; 87086; 87210; 87661; 96374; 99285; J2765

== ENCOUNTER → 2020-04-18 | Outpatient (CLI) | payer MEDICAID ==
[~2020-04-18] MED LIST changes: +COLA100C5 PO; +OMEP1CAP73 PO; +PRENTAB9 PO
== END ==
LOC: M WHC 12:30
PROVIDERS: ATTEND Advanced Practice Midwife
DX: O36.80X0 Pregnancy with inconclusive fetal viability, not applicable or unspecified (principal)

== ENCOUNTER → 2020-06-27 | Outpatient (CLI) | payer MEDICAID ==
--- NOTE | 2020-06-27 11:11 | REP ---
INDICATION: ANATOMY. COMPARISON: 04/11/2020 TECHNIQUE: Standard transabdominal OB ultrasound imaging FINDINGS: Scanning demonstrates a single intrauterine gestation in a transverse, head maternal right lie. motion is observed and heart rate is recorded at 134 beats per minute. An anterior, grade zero placenta is seen without evidence of previa. Amniotic fluid is subjectively normal. Closed cervical length is measured at 4.2 cm transabdominally. No extrauterine abnormality is observed. There has been appropriate interval growth. No anomaly is seen. The following anatomic structures are identified and felt to be sonographically unremarkable: cranium, choroid plexus, cavum, cerebellum and posterior fossa, face and profile, lungs, four-chamber heart with left and right ventricular outflow tract views, diaphragm, left-sided stomach, abdominal wall cord insertion, three-vessel umbilical cord, bladder, and upper and lower extremities. The kidneys and spine were incompletely evaluated due to lie. Biometry chart: BPD 4.9 cm; 20 weeks 6 days Head circumference 18.2 cm; 20 weeks 4 days Abdominal circumference 15.9 cm; 21 weeks 0 days Femur length 3.4 cm; 20 weeks 5 days Humeral length 3.3 cm; 21 weeks 1 days HC/AC ratio normal 1.14 Cephalic index normal 0.75 Estimated weight 379 grams, 0 pounds 12 ounces, 83 percentile for 20 weeks 1 days. IMPRESSION: Single intrauterine gestation at 20 weeks 6 days by today's composite sonographic criteria. Expected gestational age estimate based on prior sonography is 20 weeks is 1 days. DONOVAN by prior sonography 11/13/2020. No anomaly seen but incomplete evaluation of the kidneys and spine due to lie. This may be checked later in the 2nd trimester. <Electronically signed by Kashmir Sarmiento > 06/27/20 [id number]
== END ==
LOC: M WHC 09:06
PROVIDERS: ATTEND Advanced Practice Midwife
DX: Z34.82 Encounter for supervision of other normal pregnancy, second trimester (principal)

== ENCOUNTER 2020-07-02 09:19 | Emergency (ER) | payer MEDICAID ==
[~2020-07-02] VITALS: Ht 162.6 cm; Wt 79.1 kg
[~2020-07-02 09:19] MED LIST changes: -COLA100C5 PO; -OMEP1CAP73 PO; -PRENTAB9 PO
[2020-07-02 09:20] VITALS: BP 113/70
[2020-07-02] MEDS ORDERED: COLA100C5 PO (10:16)
[2020-07-02] MEDS ORDERED: PRENTAB9 PO (10:16)
[2020-07-02] MEDS ORDERED: OMEP1CAP73 PO (11:29)
== END 2020-07-02 09:30 | disposition admitted as inpatient to this hospital (09) ==
LOC: M ED 09:19
DX: O26.892 Other specified pregnancy related conditions, second trimester (principal); H53.8 Other visual disturbances; Z3A.20 20 weeks gestation of pregnancy; Z53.21 Procedure and treatment not carried out due to patient leaving prior to being seen by health care provider

== ENCOUNTER 2020-07-02 09:47 | Outpatient (CLI) | payer MEDICAID ==
[~2020-07-02] VITALS: Ht 134.6 cm; Wt 79.0 kg
[2020-07-02] MEDS ORDERED: PRENTAB9 PO (10:16)
[2020-07-02] MEDS ORDERED: COLA100C5 PO (10:16)
[2020-07-02 10:27] VITALS: BP 109/59
[2020-07-02] MEDS ORDERED: OMEP1CAP73 PO (11:29)
--- NOTE | 2020-07-02 12:56 | IPNPDOC ---
Text Note Date of Service The patient was seen on 07/02/20. NOTE S: 24-year-old 4 para 2 presents at 20 weeks 6 days estimated gestational age with complaints of abdominal pain. She reports a history of premature hernia. The worsened during . She also reports increase in acid reflux. She denies any vaginal bleeding or leakage of fluid contractions fever or chills. O: vss, AF. +doptones gen: well appearing abd: soft, gravid, nttp. reducible hernia vs diathesis A/P: 24yo with reducible hernia vs diathesis - abdominal binder provided Acid reflux - omeprazole 20mg daily Reassuring status -Midtrimester precautions and f/u with primary OB VS,Fishbone, I+O VS, Fishbone, I+O Vital Signs Date Time Temp Pulse Resp B/P (MAP) Pulse Ox O2 Delivery O2 Flow Rate FiO2 07/02/20 10:27 98.2 62 109/59 (76) KENNEDY DARLING MD. Jul 02, 2020 12:56
== END 2020-07-02 11:30 | disposition home or self-care (01) ==
LOC: M LDO 09:47
PROVIDERS: ATTEND Obstetrics & Gynecology
DX: O26.892 Other specified pregnancy related conditions, second trimester (principal); R10.13 Epigastric pain; Z3A.20 20 weeks gestation of pregnancy

== ENCOUNTER 2020-07-06 11:32 | Outpatient (CLI) | payer MEDICAID ==
[~2020-07-06] VITALS: Ht 162.6 cm; Wt 81.7 kg
[~2020-07-06 11:32] MED LIST changes: +COLA100C5 PO; +OMEP1CAP73 PO; +PRENTAB9 PO
[2020-07-06 12:00] VITALS: BP 108/65
[2020-07-06 14:30] LABS: APPEARANCE, URINE HAZY (CLEAR); BACTERIA, URINE AUTO NEGATIVE (NEGATIVE); BILIRUBIN, URINE AUTO NEGATIVE (NEGATIVE); BLOOD, URINE BLOOD NEGATIVE (NEGATIVE); COLOR, URINE YELLOW (YELLOW); GLUCOSE, URINE (UA) AUTO NEGATIVE (NEGATIVE); KETONE, URINE AUTO NEGATIVE (NEGATIVE); LEUKOCYTE ESTERASE, URINE AUTO NEGATIVE (NEGATIVE); NITRITE, URINE AUTO NEGATIVE (NEGATIVE); PROTEIN, URINE AUTO NEGATIVE (NEGATIVE); RBC, URINE AUTO 0 /HPF (0-3); SPECIFIC GRAVITY URINE AUTO 1.003 (1.002-1.035); SQUAMOUS EPITHELIAL CELL UR AU 5 /HPF (0-6); UROBILINOGEN, URINE AUTO 0.2 mg/dL (0.0-2.0); WBC, URINE AUTO 1 /HPF (0-3)
== END 2020-07-06 14:00 | disposition home or self-care (01) ==
LOC: M LDO 11:32
PROVIDERS: ATTEND Obstetrics & Gynecology
DX: O26.892 Other specified pregnancy related conditions, second trimester (principal); R10.9 Unspecified abdominal pain; Z3A.21 21 weeks gestation of pregnancy; Z88.0 Allergy status to penicillin; Z88.8 Allergy status to other drugs, medicaments and biological substances

== ENCOUNTER → 2020-07-25 | Outpatient (CLI) | payer MEDICAID ==
--- NOTE | 2020-07-25 11:32 | REP ---
INDICATION: F/U ANATOMY COMPARISON: 06/27/2020 TECHNIQUE: Transabdominal obstetrical ultrasound with color Doppler evaluation. FINDINGS: Examination demonstrates a single live intrauterine in cephalic presentation. motion is identified by technologist. Placenta is noted posterior and grade 1 without evidence for placenta previa or abruption. Amniotic fluid volume is normal. Cervix measures 3.6 cm in length and appears closed.. Gestational age by LMP 24 weeks 1 day with DONOVAN 11/13/2020. Gestational age by current measurements 25 weeks 1 day with DONOVAN 11/06/2020. FHR equals 147 beats per minute. Estimated weight 761 grams (82ndpercentile). Anatomical assessment demonstrates echogenic focus within the left cardiac ventricle unchanged. Normal appearance of the bilateral kidneys. Images of the spine are again limited and suboptimal. IMPRESSION: Continued anatomical limitations as noted above. Appropriate estimated weight and growth noted. <Electronically signed by Denis Henry > 07/25/20 [id number]
== END ==
LOC: M WHC 10:27
PROVIDERS: ATTEND Obstetrics & Gynecology
DX: Z34.82 Encounter for supervision of other normal pregnancy, second trimester (principal)

== ENCOUNTER → 2020-08-17 | Outpatient (CLI) | payer MEDICAID ==
[2020-08-17 13:54] LABS: HEMATOCRIT 34.2 % (36.0-47.0); HEMOGLOBIN 11.6 g/dl (12.0-15.5); MEAN CORPUSCULAR HEMOGLOBIN 31.4 pg (27.0-33.0); MEAN CORPUSCULAR HGB CONC 33.9 g/dl (32.0-36.5); MEAN CORPUSCULAR VOLUME 92.4 fl (80.0-96.0); PLATELET COUNT, AUTOMATED 213 10^3/uL (150-450); WHITE BLOOD COUNT 13.3 10^3/uL (4.0-10.0)
== END ==
LOC: M LAB 12:33
PROVIDERS: ATTEND Obstetrics & Gynecology
DX: Z34.83 Encounter for supervision of other normal pregnancy, third trimester (principal); Z3A.00 Weeks of gestation of pregnancy not specified

== ENCOUNTER → 2020-09-21 | Outpatient (REF) | payer MEDICAID | LOC: M LAB REF 16:13 | PROVIDERS: ATTEND Advanced Practice Midwife | DX: N39.0 Urinary tract infection, site not specified (principal) ==

== ENCOUNTER → 2020-10-10 | Outpatient (REF) | payer MEDICAID | LOC: M LAB REF 16:50 | PROVIDERS: ATTEND Advanced Practice Midwife | DX: Z34.83 Encounter for supervision of other normal pregnancy, third trimester (principal) ==

== ENCOUNTER → 2020-10-10 | Outpatient (REF) | payer MEDICAID | LOC: M LAB REF 16:24 | PROVIDERS: ATTEND Advanced Practice Midwife | DX: Z34.83 Encounter for supervision of other normal pregnancy, third trimester (principal) ==

== ENCOUNTER → 2020-10-19 | Outpatient (CLI) | payer MEDICAID ==
--- NOTE | 2020-10-19 10:39 | REP ---
INDICATION: POSITION,JUSTIN,BPP. COMPARISON: 06/27/2020. TECHNIQUE: Real-time sonographic evaluation of the gravid uterus performed. FINDINGS: Estimated gestational age is36 weeks 3 days, EDC 11/13/2020. Today's measurements indicate appropriate growth. Presentation: Cephalic Placenta posterior, grade 3, without evidence of placenta previa. heart rate is recorded at 130 beats per minute. Amniotic fluid is subjectively normal. JUSTIN 12.4, normal range 7.6-24.7. Biophysical profile score 8/8. SD ratio umbilical artery 2.37, normal range 1.62-3.48. Closed cervical length is measured at 3.5 cm. IMPRESSION: Viable single intrauterine gestation as above. <Electronically signed by Ariel Elkins > 10/19/20 [id number]
== END ==
LOC: M WHC 08:31
PROVIDERS: ATTEND Advanced Practice Midwife
DX: O32.0XX1 Maternal care for unstable lie, fetus 1 (principal)

== ENCOUNTER → 2020-11-05 | Outpatient (CLI) | payer MEDICAID | LOC: M LABSMTC 10:10 | PROVIDERS: ATTEND Anesthesiology | DX: Z01.812 Encounter for preprocedural laboratory examination (principal); Z20.822 Contact with and (suspected) exposure to COVID-19 ==

== ENCOUNTER 2020-11-10 05:17 | Inpatient (IN) | payer MEDICAID ==
[~2020-11-10] VITALS: Ht 157.5 cm; Wt 98.7 kg
[2020-11-10] VITALS (9 sets, daily range): BP systolic 121–136; BP diastolic 57–78
[2020-11-10] MEDS ORDERED: LACTATED RINGER'S 1000 ML IV STA (05:28)
[2020-11-10] MEDS ORDERED: ceFAZolin SOD 2 GM in IV 1 EA IV ONE (05:30)
[2020-11-10] MEDS ORDERED: BICITRA 30ML SOLN UDC PO ONE (05:30)
[2020-11-10] MEDS: LR 1,000 ML IV SCH ×2 (06:09→07:16)
[2020-11-10 06:20] LABS: HEMATOCRIT 39.4 % (36.0-47.0); HEMOGLOBIN 12.8 g/dl (12.0-15.5); MEAN CORPUSCULAR HEMOGLOBIN 30.3 pg (27.0-33.0); MEAN CORPUSCULAR HGB CONC 32.5 g/dl (32.0-36.5); MEAN CORPUSCULAR VOLUME 93.1 fl (80.0-96.0); PLATELET COUNT, AUTOMATED 144 10^3/uL (150-450); RED BLOOD COUNT 4.23 10^6/uL (4.00-5.40); WHITE BLOOD COUNT 13.4 10^3/uL (4.0-10.0)
[2020-11-10] MEDS ORDERED: OXYTOCIN INJ 10 UNITS/ML VIAL (J2590) As Ordered ONE (07:13)
[2020-11-10] MEDS ORDERED: MORPHINE PRES-FREE INJ 10 MG/10 ML VIAL (J2274) As Ordered ONE ×2 (07:14→10:31)
[2020-11-10] MEDS ORDERED: MEASLES,MUMPS,RUBELLA VACCINE INJ (MMR-II) (90707) SC SCH (07:40)
[2020-11-10] MEDS ORDERED: RHOGAM 300 MCG (1500 IU) INJ (J2790) IM SCH (07:40)
[2020-11-10] MEDS ORDERED: OXYTOCIN DRIP 30 UNITS in IV 1 EA IV SCH (07:40)
[2020-11-10] MEDS ORDERED: ONDANSETRON 4MG/2ML VIAL IV PRN ×2 (08:00→09:45)
[2020-11-10] MEDS ORDERED: METOCLOPRAMIDE INJ 10MG/2ML VIAL (J2765 PER 1) IV PRN (08:00)
[2020-11-10] MEDS ORDERED: NALOXONE INJ 0.4MG/1ML VIAL (J2310 PER 1MG) IV PRN ×2 (08:00)
[2020-11-10] MEDS ORDERED: NALBUPHINE HCL 10 MG/ML AMP (J2300) IV PRN (08:00)
[2020-11-10] MEDS ORDERED: diphenhydrAMINE 50MG/ML VIAL (J1200) IV PRN (08:00)
[2020-11-10] MEDS ORDERED: dexameTHASONE 4 MG/ML 1ML VIAL (J1100 PER 1MG) As Ordered ONE (08:15)
[2020-11-10] MEDS ORDERED: ONDANSETRON 4MG/2ML VIAL As Ordered ONE (08:15)
[2020-11-10] MEDS ORDERED: PHENYLephrine 500MCG 5ML (100MCG/ML) SYRINGE As Ordered ONE (08:19)
[2020-11-10] MEDS ORDERED: METOCLOPRAMIDE INJ 10MG/2ML VIAL (J2765 PER 1) As Ordered ONE (08:25)
[2020-11-10] MEDS ORDERED: CALCIUM CARBONATE 500 MG CHEW U/D PO ONE (08:35)
[2020-11-10] MEDS ORDERED: FAMOTIDINE/NS 20 MG/50 ML BAG (S0028) As Ordered ONE (08:35)
[2020-11-10] MEDS ORDERED: KETOROLAC 60MG 2ML VIAL As Ordered ONE (08:36)
[2020-11-10] MEDS ORDERED: FAMOTIDINE IV BAG 20 MG in IV 1 EA IV ONE (08:40)
[2020-11-10] MEDS: PRENATAL VITAMINS CHEWABLE TABLET PO SCH (09:00)
[2020-11-10] MEDS ORDERED: OXYTOCIN 30 UNITS IN 0.9% NaCl 500ML IV BAG (J2590) As Ordered ONE (09:02)
[2020-11-10 09:27] LABS: CORD GAS ABE A -4.2; CORD GAS HCO3 A 26.7 MEQ/L; CORD GAS O2 SAT A 61.8 %; CORD GAS PCO2 A 76.4 mmHg; CORD GAS PH A 7.161 UNITS; CORD GAS PO2 A 30.9 mmHg; CORD GAS SBC A 20.2 MEQ/L
[2020-11-10 09:28] LABS: CORD GAS ABE V -3.3; CORD GAS PCO2 V 57.4 mmHg; CORD GAS PH V 7.257 UNITS; CORD GAS PO2 V 30.2 mmHg; CORD GAS SBC V 20.9 MEQ/L; CORD GAS TCO2 V 26.8 MEQ/L
[2020-11-10] MEDS ORDERED: fentaNYL 100 MCG/2 ML INJECTION (J3010) IV PRN (09:45)
[2020-11-10] MEDS ORDERED: oxyCODONE 5MG TAB PO PRN (09:45)
[2020-11-10] MEDS: KETOROLAC 30 MG/ML 1ML VIAL IV SCH ×2 (14:54→21:21)
[2020-11-10] MEDS: SIMETHICONE 80MG CHEW TAB PO PRN (21:42)
[2020-11-11 02:00] VITALS: BP 128/59
[2020-11-11] MEDS: KETOROLAC 30 MG/ML 1ML VIAL IV SCH (03:14)
[2020-11-11 06:00] VITALS: BP 115/61
[2020-11-11 07:25] LABS: HEMATOCRIT 29.9 % (36.0-47.0); MEAN CORPUSCULAR HEMOGLOBIN 30.5 pg (27.0-33.0); MEAN CORPUSCULAR HGB CONC 32.8 g/dl (32.0-36.5); MEAN CORPUSCULAR VOLUME 93.1 fl (80.0-96.0); PLATELET COUNT, AUTOMATED 193 10^3/uL (150-450); RED BLOOD COUNT 3.21 10^6/uL (4.00-5.40); WHITE BLOOD COUNT 15.5 10^3/uL (4.0-10.0)
[2020-11-11 07:42] LABS: HEMOGLOBIN 9.8 g/dl (12.0-15.5)
[2020-11-11] MEDS: PRENATAL VITAMINS CHEWABLE TABLET PO SCH (08:04)
[2020-11-11] MEDS: PERCOCET 5MG/325MG TAB PO PRN ×2 (08:04→19:11)
[2020-11-11 10:00] VITALS: BP 134/77
[2020-11-11] MEDS: IBUPROFEN 800 MG TAB PO SCH ×2 (10:36→18:30)
[2020-11-11 14:00] VITALS: BP 132/73
--- NOTE | 2020-11-11 14:15 | RO ---
OPERATIVE NOTE DATE OF OPERATION: 11/10/2020 INDICATIONS: Shoshana is a 25-year-old female with term and prior section who was admitted for repeat section. PRE-OPERATIVE DIAGNOSIS: Term for elective repeat section. POST-OPERATIVE DIAGNOSIS: Term for elective repeat section. PROCEDURE: Repeat section. ANESTHESIA: Spinal. SURGEON: Salvatore Doyle D.O. TECHNICAL SALES REPRESENTATIVE: SIMON RUBIO MD COMPLICATIONS: None. ESTIMATED BLOOD LOSS: Less than 500 mL. FINDINGS: Male infant in occiput transverse position. weight 9 pounds 9 ounces. Normal-appearing tubes and ovaries. DESCRIPTION OF PROCEDURE: After obtaining informed consent, the patient was taken to the operating room where spinal anesthetic was found to be adequate. She was then draped and prepped in the usual sterile fashion in the supine position. With the help of the portfolio assistant a Pfannenstiel incision was made. This was carried down to the fascia. The fascia was incised in a midline fashion and carried through laterally. The superior aspect of the fascia was then grasped with two Dale clamps, tented off, and dissected off the rectus muscles sharply. The inferior aspect was dissected off in a similar fashion. Rectus muscles were in the midline fashion. The peritoneum was identified and peritoneal cavity entered bluntly. Superior and inferior dissection of the peritoneum was then done with good visualization of the bladder. At this point, a Mobius skin retractor was placed. A low transverse uterine incision was made. The infant was delivered in an atraumatic fashion. The nose and mouth was bulb suctioned. Cord doubly clamped and cut. The was handed over to the awaiting warmer. The cord blood and cord gas was sent. Placenta removed manually. Uterus cleared of all clots and debris. Uterine incision was then repaired in two separate layers of 0-Vicryl sutures. All superficial bleeders were coagulated. The skin was reapproximated in a subcuticular fashion using 3-0 Vicryl on a Alonso needle. Steri-Strips were placed. Patient tolerated the procedure well. She was then transferred to the recovery room in stable condition. JUAN ANTONIO
[2020-11-11 18:45] VITALS: BP 133/70
[2020-11-11] MEDS: SIMETHICONE 80MG CHEW TAB PO PRN (19:11)
[2020-11-11 22:00] VITALS: BP 144/77
[2020-11-12] MEDS: PERCOCET 5MG/325MG TAB PO PRN ×3 (01:35→17:38)
[2020-11-12 02:00] VITALS: BP 137/67
[2020-11-12] MEDS: IBUPROFEN 800 MG TAB PO SCH ×3 (02:08→18:18)
[2020-11-12 06:00] VITALS: BP 131/73
[2020-11-12] MEDS ORDERED: BOOSTRIX/ADACEL VACCINE (DIPHTH/PERTUSS/ACELL/TETANUS) 0.5ML SYR IM ONE (09:00)
--- NOTE | 2020-11-12 09:11 | IPNPDOC ---
Progress Note Date of Service: Nov 12, 2020 Day#: 2 Progress Note SUBJECT: Shoshana is a 25-year-old female who is now a who had a repeat section 2 days ago. Her is in the NICU. She does have an open CPS case. She adopted her 2 other children out. Her mother is present with her and supportive. Patient reports some pain but otherwise reports she has been able to shower, move around the room, eat a regular diet and void. She does report feeling like it is more difficult to breath when she is lying down "Like I have something stuck in my throat." She was given the incentive spirometer and has been using this. OBJECTIVE: VITAL SIGNS: Within normal limits, afebrile. Alert and oriented times three. Breath sounds clear to auscultation bilaterally. Abdomen: Dressing is off. Incision is approximated without erythema or drainage. Minimal lochia. ASSESSMENT: Day 2 postoperative PLAN: 1. Continue supportive nursing care. 2. Saline lock to be removed. 3. Encouraged ambulation. 4. PFS to see patient again on Saturday. VS, I&O, 24H, Fishbone Vital Signs/I&O Vital Signs Date Time Temp Pulse Resp B/P (MAP) Pulse Ox O2 Delivery O2 Flow Rate FiO2 11/12/20 06:51 15 11/12/20 06:00 98.0 82 131/73 (92) 100 Room Air ALANA LEZAMA CNM Nov 12, 2020 09:11
[2020-11-12] MEDS: PRENATAL VITAMINS CHEWABLE TABLET PO SCH (09:52)
[2020-11-12 18:00] VITALS: BP 136/76
[2020-11-13] MEDS: IBUPROFEN 800 MG TAB PO SCH (02:08)
[2020-11-13 06:28] VITALS: BP 124/68
[2020-11-13] MEDS ORDERED: PERCOCET PO (06:40)
[2020-11-13] MEDS ORDERED: IBUP80TA PO (06:40)
--- NOTE | 2020-11-13 06:44 | OBDS ---
[facility] Obstetrical Discharge Sum. Obstetrical Discharge Summary Date: Nov 13, 2020 VDRL: Non-Reactive Rubella: Immune Anesthesia: Regional Anesthesia A/P, Post Course List any complications Admission diagnosis: Term for elective repeat c/s. Discharge diagnosis: same Condition at Discharge: [stable] Discharge Instructions: [Nothing in the vagina for 6 weeks.] Activity: [as tolerated] Diet: [regular] Medications: [see list] Follow-up: [2 weeks] Other: Salvatore Doyle DO Nov 13, 2020 06:44
[2020-11-13] MEDS: PRENATAL VITAMINS CHEWABLE TABLET PO SCH (09:06)
[2020-11-13] MEDS: PERCOCET 5MG/325MG TAB PO PRN (09:11)
[2020-11-13] MEDS: SIMETHICONE 80MG CHEW TAB PO PRN (09:11)
== END 2020-11-13 10:25 | disposition home or self-care (01) | DRG 540 ==
LOC: M LDI 05:17 → M OBS 10:35
PROVIDERS: ADMIT Obstetrics & Gynecology; ATTEND Obstetrics & Gynecology
PROC: 10D00Z1 Extraction of Products of Conception, Low, Open Approach (ICD-10-PCS; principal; 2020-11-10 07:30)
DX: O34.211 Maternal care for low transverse scar from previous cesarean delivery (principal); Z88.0 Allergy status to penicillin; Z37.0 Single live birth; Z3A.39 39 weeks gestation of pregnancy

== ENCOUNTER → 2020-12-13 | Outpatient (REF) | payer MEDICAID ==
[~2020-12-13] MED LIST changes: +IBUP80TA PO; +PERCOCET PO
[2020-12-13 19:03] LABS: BASO # 0.1 10^3/uL (0.0-0.2); BASO % 0.6 % (0.0-1.0); EOS # 0.4 10^3/uL (0.0-0.5); EOS % 4.9 % (0.0-3.0); HEMATOCRIT 40.1 % (36.0-47.0); HEMOGLOBIN 13.1 g/dl (12.0-15.5); LYMPH # 2.2 10^3/uL (1.5-5.0); LYMPH % 26.9 % (24.0-44.0); MEAN CORPUSCULAR HEMOGLOBIN 29.6 pg (27.0-33.0); MEAN CORPUSCULAR HGB CONC 32.7 g/dl (32.0-36.5); MEAN CORPUSCULAR VOLUME 90.5 fl (80.0-96.0); MONO # 0.5 10^3/uL (0.0-0.8); NEUTROPHILS # 4.9 10^3/uL (1.5-8.5); NEUTROPHILS % 60.5 % (36.0-66.0); PLATELET COUNT, AUTOMATED 204 10^3/uL (150-450); RED BLOOD COUNT 4.43 10^6/uL (4.00-5.40); WHITE BLOOD COUNT 8.1 10^3/uL (4.0-10.0)
[2020-12-13 19:32] LABS: THYROID STIMULATING HORMONE 1.01 uIU/ML (0.358-3.740)
== END ==
LOC: M LAB REF 17:35
PROVIDERS: ATTEND Pediatrics
DX: R30.9 Painful micturition, unspecified (principal); G56.03 Carpal tunnel syndrome, bilateral upper limbs; T81.41XA Infection following a procedure, superficial incisional surgical site, initial encounter; Y83.8 Other surgical procedures as the cause of abnormal reaction of the patient, or of later complication, without mention of misadventure at the time of the procedure

== ENCOUNTER → 2021-05-17 | Outpatient (CLI) | payer MEDICAID ==
--- NOTE | 2021-05-17 16:17 | REP ---
INDICATION: CERVICALGIA. Low back pain. COMPARISON: Comparison radiographs September 02, comparison radiograph September 02, 2018. TECHNIQUE: Five views of the lumbar spine are provided. FINDINGS: Lumbar vertebral body heights are preserved. Disc spaces are maintained. Pedicles and posterior elements are intact. There is no evidence of spondylolysis or spondylolisthesis. Sacrum and SI joints are normal in appearance. Psoas margins are symmetric. Visualized bowel gas pattern is unremarkable. Findings are unchanged. IMPRESSION: Negative lumbar spine radiographs. <Electronically signed by Howard Lew > 05/17/21 [id number]
== END ==
LOC: M RAD 15:12
PROVIDERS: ATTEND Physician Assistant
DX: M54.2 Cervicalgia (principal); M54.5 Low back pain

== ENCOUNTER 2021-05-19 11:50 | Inpatient (IN) | payer MEDICAID ==
[~2021-05-19] VITALS: Ht 154.9 cm; Wt 89.6 kg
[2021-05-19 13:11] LABS: HEMATOCRIT 38.6 % (36.0-47.0); HEMOGLOBIN 12.7 g/dl (12.0-15.5); MEAN CORPUSCULAR HEMOGLOBIN 29.3 pg (27.0-33.0); MEAN CORPUSCULAR HGB CONC 32.9 g/dl (32.0-36.5); MEAN CORPUSCULAR VOLUME 88.9 fl (80.0-96.0); PLATELET COUNT, AUTOMATED 222 10^3/uL (150-450); RED BLOOD COUNT 4.34 10^6/uL (4.00-5.40); WHITE BLOOD COUNT 7.9 10^3/uL (4.0-10.0)
[2021-05-19 13:35] LABS: HCG, SERUM QUALITATIVE NEGATIVE (NEGATIVE)
[2021-05-19 13:42] LABS: ACETAMINOPHEN LEVEL < 2.0 UG/ML (10.0-30.0); ALBUMIN 3.7 GM/DL (3.2-5.2); ALT/SGPT 19 U/L (12-78); BILIRUBIN,DIRECT 0.2 MG/DL (0.0-0.2); BILIRUBIN,TOTAL 0.7 MG/DL (0.2-1.0); BLOOD UREA NITROGEN 10 MG/DL (7-18); CALCIUM LEVEL 9.1 MG/DL (8.5-10.1); CARBON DIOXIDE LEVEL 26 MEQ/L (21-32); CHLORIDE LEVEL 109 MEQ/L (98-107); CREATININE FOR GFR 0.59 MG/DL (0.55-1.30); ETHYL ALCOHOL (ETHANOL) < 0.003 % (0.000-0.010); GLOMERULAR FILTRATION RATE > 60.0 (>60); GLUCOSE, FASTING 84 MG/DL (70-100); POTASSIUM SERUM 3.8 MEQ/L (3.5-5.1); SALICYLATE LEVEL < 1.7 MG/DL (5.0-30.0); SODIUM LEVEL 141 MEQ/L (136-145); THYROID STIMULATING HORMONE 0.674 uIU/ML (0.358-3.740); TOTAL PROTEIN 6.9 GM/DL (6.4-8.2)
[2021-05-19 15:23] LABS: AMPHETAMINES LEVEL URINE NEGATIVE (NEGATIVE); BARBITURATES URINE NEGATIVE (NEGATIVE); BENZODIAZEPINES URINE NEGATIVE (NEGATIVE); CANNABINOIDS URINE NEGATIVE (NEGATIVE); COCAINE METABOLITE URINE NEGATIVE (NEGATIVE); METHADONE URINE NEGATIVE (NEGATIVE); OPIATES URINE NEGATIVE (NEGATIVE); PHENCYCLIDINE URINE NEGATIVE (NEGATIVE)
[2021-05-19] MEDS ORDERED: HOME MED LIST COMPLETE! XX SCH (19:45)
[2021-05-19 20:49] LABS: RSV AMPLIFICATION NEGATIVE (NEGATIVE)
[2021-05-19] MEDS ORDERED: traZODone 50 MG TAB PO PRN (21:15)
[2021-05-19] MEDS ORDERED: MOM 30ML SUSPENSION UDC PO PRN (21:15)
[2021-05-19] MEDS ORDERED: MAALOX 30 ML SUSP *UDC PO PRN (21:15)
[2021-05-19 22:43] VITALS: BP 132/70
[2021-05-20 06:00] VITALS: BP 142/84
[2021-05-20] MEDS: SERTRALINE HCL 50 MG TAB PO SCH (09:54)
--- NOTE | 2021-05-20 12:28 | HPEPDOC ---
[facility] Medical History & Physical Date of Admission May 19, 2021 Date of Service: May 20, 2021 History and Physical CHIEF COMPLAINT: Suicidal ideation HISTORY OF PRESENT ILLNESS: Patient was brought into the ED due to increased depression, anxiety, and numerous stressors. Denies she was having suicidal ideations and cutting behavior. She also does have a 7-ltkfv-xotc-old and had harmful ideations as well, but the 6-xnicy-xhdl-old was in the care of her uncle. She has subsequently been admitted to the [facility]. 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 Also only drinks alcohol on special occasions such as birthdays or holidays. Denies any illicit drug use. FAMILY HISTORY: Sounds as though multiple members of her family have diabetes. Paternal side has heart disease and myocardial infarction. REVIEW OF SYSTEMS: Patient reports that she is feeling well at this time. She does not have any medical complaints at this time. She was only brought in for psychiatric issues. Otherwise review of systems is negative. PHYSICAL EXAMINATION: General: Awake, alert, oriented x3. She does seem to be speaking quickly, perhaps pressured speech. HEENT: Head normocephalic atraumatic, conjunctiva are pink, sclera are nonicteric, buccal mucosa is pink and moist with no lesions in the oropharynx. Hearing is grossly intact to conversation. Respiratory: Clear to auscultation bilaterally with no wheezes, rales, or rhonchi. Cardiovascular: Regular rate and rhythm, with no rubs, gallops, or murmur. ASSESSMENT/PLAN: Psychiatric issues Suicidal ideations -Per management from the psychiatric team Superficial cuts to the bilateral arms -Cuts are very superficial, no bleeding, no bandages or wound care necessary at this time. Otherwise, she does not have any other acute or chronic medical conditions. Please reconsult our service if any issues arise. Vital Signs Vital Signs Date Time Temp Pulse Resp B/P (MAP) Pulse Ox O2 Delivery O2 Flow Rate FiO2 05/20/21 06:00 98.8 65 18 142/84 (103) 98 05/19/21 22:43 Room Air Laboratory Data Labs 24H Laboratory Tests 2 05/19/21 12:55: Nucleated Red Blood Cells % (auto) 0.0, Anion Gap 6L, Glomerular Filtration Rate > 60.0, Calcium Level 9.1, Total Bilirubin 0.7, Direct Bilirubin 0.2, Aspartate Amino Transf (AST/SGOT) 10, Alanine Aminotransferase (ALT/SGPT) 19, Alkaline Phosphatase 81, Total Protein 6.9, Albumin 3.7, Albumin/Globulin Ratio 1.2, Thyroid Stimulating Hormone (TSH) 0.674, Human Chorionic Gonadotropin, Qual NEGATIVE, Salicylates Level < 1.7L, Acetaminophen Level < 2.0L, Ethyl Alcohol Level < 0.003 05/19/21 14:39: Urine Opiates Screen NEGATIVE, Urine Methadone Screen NEGATIVE, Urine Barbiturates Screen NEGATIVE, Urine Phencyclidine Screen NEGATIVE, Urine Amphetamines Screen NEGATIVE, Urine Benzodiazepines Screen NEGATIVE, Urine Cocaine Metabolite Screen NEGATIVE, Urine Cannabinoids Screen NEGATIVE 05/19/21 19:25: Coronavirus (COVID-19)(PCR) NEGATIVE, Influenza Type A (RT-PCR) NEGATIVE, Influenza Type B (RT-PCR) NEGATIVE, Respiratory Syncytial Virus (PCR) NEGATIVE CBC/BMP Laboratory Tests 05/19/21 12:55 Home Medications No Active Prescriptions or Reported Meds Allergies Coded Allergies: Penicillins (Verified Allergy, Unknown, hives, 11/03/20) risperidone (Verified Allergy, Unknown, 07/02/20) diphenhydramine (Verified Adverse Reaction, Unknown, dizzy, "feels weird", 07/02/20) A-FIB/CHADSVASC A-FIB History Current/History of A-Fib/PAF?: No REJI CRUZ DO May 20, 2021 12:27
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
[2021-05-20 19:08] VITALS: BP 121/64
[2021-05-20 19:09] VITALS: BP 121/64
[2021-05-20] MEDS: DOCUSATE SODIUM 100MG CAPSULE PO SCH (19:10)
[2021-05-21 04:33] VITALS: BP 108/58
[2021-05-21] MEDS ORDERED: ONDANSETRON 4 MG ORAL DISINTEGRATING TAB PO PRN (05:05)
--- NOTE | 2021-05-21 05:14 | IPNPDOC ---
Text Note Date of Service Significant event NOTE Notified patient with crying in bathroom due to abdominal discomfort. Patient had reported episode of moderate amount of grant gastric contact over the span of roughly 10 minutes. Patient has not had abdominal complaints since admission on the . Blood glucose 117, vital signs 98.7 Fahrenheit, heart rate 78, respiratory rate 18 and blood pressure 108/58. Of note, patient with hyperactive bowel sounds; but no specific exquisite spot of tenderness reportedly. Patient does have a history of constipation and reflux. She rep ortedly had episode of diarrhea today. Patient was able to go back to bed, but is requesting Zofran. Plan for Zofran p.o. as needed. Will obtain a.m. lab work CBC/CMP/lipase/amylase as well as KUB. Will check UA. Consider differentials and pending data for further intervention. VS,Fishbone, I+O VS, Fishbone, I+O Vital Signs Date Time Temp Pulse Resp B/P (MAP) Pulse Ox O2 Delivery O2 Flow Rate FiO2 05/21/21 04:33 98.7 78 18 108/58 (75) 05/20/21 06:00 98 05/19/21 22:43 Room Air YOSEPH EVANS NP May 21, 2021 05:14
[2021-05-21 06:00] VITALS: BP 108/58
[2021-05-21 06:51] LABS: BASO % 0.3 % (0.0-1.0); EOS # 0.1 10^3/uL (0.0-0.5); EOS % 1.2 % (0.0-3.0); HEMATOCRIT 38.9 % (36.0-47.0); HEMOGLOBIN 12.9 g/dl (12.0-15.5); LYMPH # 1.6 10^3/uL (1.5-5.0); LYMPH % 14.6 % (24.0-44.0); MEAN CORPUSCULAR HEMOGLOBIN 29.3 pg (27.0-33.0); MEAN CORPUSCULAR HGB CONC 33.2 g/dl (32.0-36.5); MEAN CORPUSCULAR VOLUME 88.4 fl (80.0-96.0); MONO # 0.6 10^3/uL (0.0-0.8); MONO % 5.7 % (2.0-8.0); NEUTROPHILS # 8.3 10^3/uL (1.5-8.5); NEUTROPHILS % 77.8 % (36.0-66.0); PLATELET COUNT, AUTOMATED 231 10^3/uL (150-450); WHITE BLOOD COUNT 10.6 10^3/uL (4.0-10.0)
[2021-05-21 07:12] LABS: ALBUMIN 3.5 GM/DL (3.2-5.2); ALT/SGPT 16 U/L (12-78); AMYLASE 35 U/L (25-115); BILIRUBIN,TOTAL 0.2 MG/DL (0.2-1.0); BLOOD UREA NITROGEN 16 MG/DL (7-18); CALCIUM LEVEL 8.8 MG/DL (8.5-10.1); CARBON DIOXIDE LEVEL 26 MEQ/L (21-32); CHLORIDE LEVEL 107 MEQ/L (98-107); CREATININE FOR GFR 0.61 MG/DL (0.55-1.30); GLOMERULAR FILTRATION RATE > 60.0 (>60); GLUCOSE, FASTING 93 MG/DL (70-100); LIPASE 81 U/L (73-393); POTASSIUM SERUM 4.2 MEQ/L (3.5-5.1); SODIUM LEVEL 140 MEQ/L (136-145)
[2021-05-21] MEDS: DOCUSATE SODIUM 100MG CAPSULE PO SCH (09:00)
[2021-05-21] MEDS: SERTRALINE HCL 50 MG TAB PO SCH (09:57)
--- NOTE | 2021-05-21 12:05 | MHIPNPDOC ---
[facility] Progress Note Progress Note DATE OF SERVICE: 05/21/21 HISTORY: . VITAL SIGNS: See below. NEW TEST RESULTS: See below CURRENT MEDICATIONS: See below. MENTAL STATUS EXAMINATION: General Appearance: appears stated age, hospital scubs/clothing, sitting on her bed, disheveled, unkempt, fair eye contact Build: average Demeanor: average Eye Contact: average Activity: anxious,cooperative Behavior: cooperative Speech: clear, rapid, spontaneous, normal volume Mood: denies feeling sad or anxious Affect: incongruent, anxious Thought Process: incoherent, racing Thought Content (Other): preoccupied, obsessional, ideas of reference Thought Content (Aggressive): aggressive (assess) (She says she had thoughts about harming the baby, she says only once, recently) Perception (Hallucinations): none reported Perception (Other): none reported Cognition (Impairment of): memory (she has to write things down ), attention/concentration Cognition(Intelligence Est.): borderline Oriented: Awake, Alert, oriented x 3 Insight: poor Judgment: Poor Psychosis: Denies Diagnoses 1. Intellectual disability 2. Generalized anxiety disorder 3. Major depressive disorder, severe, with psychotic features, 4. Social anxiety disorder 5.PTSD chronic 6. Panic disorder without agoraphobia, 7. 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 OCD1. ASSESSMENT: She doesn't like taking medications, she is fixated on medications causing a lot of problems including a burning pain in her whole body but this is not the first time she has these thoughts because she is afraid of taking pills. Other than that, she says she feels fine at the Unit because she has made friends and she dislikes feeling alone. MANAGEMENT PLAN: Will continue with current treatment plan TIME SPENT: 20 minutes. Vital Signs Vital Signs Date Time Temp Pulse Resp B/P (MAP) Pulse Ox O2 Delivery O2 Flow Rate FiO2 05/21/21 06:00 98.7 78 18 108/58 (75) 96 05/19/21 22:43 Room Air Laboratory Data 24H Labs Laboratory Tests 2 05/21/21 04:05: Bedside Glucose (Misc Panel) 117H 05/21/21 06:20: Immature Granulocyte % (Auto) 0.4, Neutrophils (%) (Auto) 77.8H, Lymphocytes (%) (Auto) 14.6L, Monocytes (%) (Auto) 5.7, Eosinophils (%) (Auto) 1.2, Basophils ( %) (Auto) 0.3, Neutrophils # (Auto) 8.3, Lymphocytes # (Auto) 1.6, Monocytes # (Auto) 0.6, Eosinophils # (Auto) 0.1, Basophils # (Auto) 0.0, Nucleated Red Blood Cells % (auto) 0.0, Anion Gap 7L, Glomerular Filtration Rate > 60.0, Calcium Level 8.8, Total Bilirubin 0.2#, Aspartate Amino Transf (AST/SGOT) 9, Alanine Aminotransferase (ALT/SGPT) 16, Alkaline Phosphatase 84, Total Protein 7.0, Albumin 3.5, Albumin/Globulin Ratio 1.0L, Amylase Level 35, Lipase 81 CBC/BMP Laboratory Tests 05/21/21 06:20 Current Medications Current Medications Medications (Trade) Dose Ordered Sig/Geraldo Route PRN Reason Start Time Stop Time Status Last Admin Dose Admin Acetaminophen (Tylenol Tab) 650 mg Q6HP PRN PO HEADACHE or MILD DISCOMFORT 05/19/21 21:15 Al Hydrox/Mg Hydrox/Simethicone (Mylanta) 30 ml Q4HP PRN PO HEARTBURN/INDIGESTION 05/19/21 21:15 Aripiprazole (AbiLIFY) 5 mg QHS PO 05/19/21 21:00 05/20/21 22:02 Docusate Sodium (Colace) 100 mg DAILY PO 05/20/21 09:00 05/20/21 19:10 Home Med (Home Med List Complete!) ASDIRECTED XX 05/19/21 19:45 05/19/21 19:47 DC Magnesium Hydroxide (Milk Of Magnesia) 30 ml DAILYPRN PRN PO CONSTIPATION 05/19/21 21:15 Ondansetron HCl (Zofran Odt) 4 mg Q6HP PRN PO NAUSEA OR VOMITING 05/21/21 05:05 05/21/21 05:17 Sertraline HCl (Zoloft) 50 mg DAILY PO 05/20/21 09:00 05/21/21 09:57 Trazodone HCl (Desyrel) 50 mg QHSP PRN PO INSOMNIA 05/19/21 21:15 Allergies Coded Allergies: Penicillins (Verified Allergy, Unknown, hives, 11/03/20) risperidone (Verified Allergy, Unknown, 07/02/20) diphenhydramine (Verified Adverse Reaction, Unknown, dizzy, "feels weird", 07/02/20) MICHAEL NARAYANAN MD May 21, 2021 12:05
[2021-05-21 15:17] LABS: BILIRUBIN,DIRECT < 0.1 MG/DL (0.0-0.2); CHOLESTEROL LEVEL 183 MG/DL (<200); CHOLESTEROL RISK RATIO 4.159 (<5); HDL CHOLESTEROL 44 MG/DL (>40); LDL CHOLESTEROL 117 MG/DL (<100); NON-HDL-C 139 MG/DL; TRIGLYCERIDES LEVEL 111 MG/DL (<150)
[2021-05-21 18:39] VITALS: BP 144/71
[2021-05-22] MEDS: ACETAMINOPHEN TAB 650MG DOSE (2X325MG) PO PRN ×2 (00:08→14:23)
[2021-05-22 06:19] VITALS: BP 123/71
[2021-05-22] MEDS ORDERED: metroNIDAZOLE 70 GM VAGINAL GEL PV SCH (09:00)
[2021-05-22] MEDS: DOCUSATE SODIUM 100MG CAPSULE PO SCH (09:14)
[2021-05-22] MEDS: SERTRALINE HCL 50 MG TAB PO SCH (09:14)
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
--- NOTE | 2021-05-22 13:54 | IPNPDOC ---
Text Note Date of Service The patient was seen on 05/22/21. NOTE Hospitalist Progress Note Subjective: I was called by [facility] staff and informed that patient is complaining of vaginal itching. I came and spoke with the patient, staff was in the room. Pt reports symptoms of itching, burning with urination. Objective: General: Awake, alert, oriented 3. Not in any acute distress. Otherwise, physical exam deferred Assessment/Plan: Based on history, likely has vaginal yeast infection -Urinalysis negative, no UTI, no indication for antibiotics at this time -Fluconazole 150 mg single dose -MetroGel to be applied once daily for 5 days VS,Fishbone, I+O VS, Fishbone, I+O Vital Signs Date Time Temp Pulse Resp B/P (MAP) Pulse Ox O2 Delivery O2 Flow Rate FiO2 05/22/21 06:19 96.8 55 18 123/71 (88) 97 Room Air NANCYSHREYAREJI DO May 22, 2021 13:54
[2021-05-22] MEDS ORDERED: FLUCONAZOLE 50MG TABLET PO ONE (16:00)
[2021-05-22 16:28] VITALS: BP 133/72
[2021-05-22] MEDS: metroNIDAZOLE 70 GM VAGINAL GEL PV SCH (21:51)
[2021-05-23 05:46] VITALS: BP 152/70
[2021-05-23] MEDS: SERTRALINE HCL 50 MG TAB PO SCH (08:33)
[2021-05-23] MEDS: DOCUSATE SODIUM 100MG CAPSULE PO SCH ×2 (08:33→20:50)
[2021-05-23] MEDS ORDERED: SENNA 8.6 MG TAB (SENOKOT) PO PRN (09:55)
--- NOTE | 2021-05-23 12:33 | MHIPNPDOC ---
[facility] Progress Note Progress Note DATE OF SERVICE: 05/19/21 LATE ENTRY: 05/23/21 This radio news writer discussed patient's case with ED staff member, Mily Wetzel and recommended admission because patient had suicidal and homicidal ideation against her baby. She was admitted to [facility] on 05/19/21 Vital Signs Vital Signs Date Time Temp Pulse Resp B/P (MAP) Pulse Ox O2 Delivery O2 Flow Rate FiO2 05/23/21 05:46 98.1 93 18 152/70 (97) 96 Room Air Current Medications Current Medications Medications (Trade) Dose Ordered Sig/Geraldo Route PRN Reason Start Time Stop Time Status Last Admin Dose Admin Acetaminophen (Tylenol Tab) 650 mg Q6HP PRN PO HEADACHE or MILD DISCOMFORT 05/19/21 21:15 05/22/21 14:23 Al Hydrox/Mg Hydrox/Simethicone (Mylanta) 30 ml Q4HP PRN PO HEARTBURN/INDIGESTION 05/19/21 21:15 Aripiprazole (AbiLIFY) 5 mg QHS PO 05/19/21 21:00 05/20/21 22:02 Docusate Sodium (Colace) 100 mg BID PO 05/23/21 21:00 Docusate Sodium (Colace) 100 mg DAILY PO 05/20/21 09:00 05/23/21 09:55 DC 05/23/21 08:33 Home Med (Home Med List Complete!) ASDIRECTED XX 05/19/21 19:45 05/19/21 19:47 DC Magnesium Hydroxide (Milk Of Magnesia) 30 ml DAILYPRN PRN PO CONSTIPATION 05/19/21 21:15 Metronidazole (Metrogel Vaginal) DAILY PV 05/22/21 09:00 05/22/21 15:10 DC Metronidazole (Metrogel Vaginal) QHS PV 05/22/21 21:00 05/27/21 20:59 05/22/21 21:51 Ondansetron HCl (Zofran Odt) 4 mg Q6HP PRN PO NAUSEA OR VOMITING 05/21/21 05:05 05/21/21 05:17 Senna (Senokot) 1 tab BIDP PRN PO CONSTIPATION 05/23/21 09:55 Sertraline HCl (Zoloft) 50 mg DAILY PO 05/20/21 09:00 05/23/21 08:33 Trazodone HCl (Desyrel) 50 mg QHSP PRN PO INSOMNIA 05/19/21 21:15 Allergies Coded Allergies: Penicillins (Verified Allergy, Unknown, hives, 11/03/20) risperidone (Verified Allergy, Unknown, 07/02/20) diphenhydramine (Verified Adverse Reaction, Unknown, dizzy, "feels weird", 07/02/20) MICHAEL NARAYANAN MD May 23, 2021 12:33
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
[2021-05-23 16:12] VITALS: BP 134/69
[2021-05-23] MEDS: metroNIDAZOLE 70 GM VAGINAL GEL PV SCH (20:50)
[2021-05-23] MEDS: OXcarbazepine 150 MG TAB PO SCH (20:51)
[2021-05-24 06:43] VITALS: BP 130/96
[2021-05-24] MEDS: SERTRALINE HCL 50 MG TAB PO SCH (08:15)
[2021-05-24] MEDS: OXcarbazepine 150 MG TAB PO SCH ×2 (08:15→20:57)
[2021-05-24] MEDS: DOCUSATE SODIUM 100MG CAPSULE PO SCH ×2 (08:16→20:57)
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
[2021-05-24 16:19] VITALS: BP 104/58
[2021-05-24 16:22] VITALS: BP 130/67
[2021-05-24] MEDS: metroNIDAZOLE 70 GM VAGINAL GEL PV SCH (21:00)
--- NOTE | 2021-05-25 04:15 | REP ---
INDICATION: abdominal pain, n/v COMPARISON: None. TECHNIQUE: Portable supine view of the abdomen and pelvis. FINDINGS: Bowel gas pattern is nonspecific and without obstruction or perforation. Mild fecal stasis cannot be excluded and should be correlated with physical examination. No organomegaly. No abnormal calcifications. Skeletal structures intact. IMPRESSION: Essentially unremarkable examination. <Electronically signed by Denis Henry > 05/25/21 0417
[2021-05-25] MEDS ORDERED: SERTRALINE 100 MG TAB PO SCH (09:00)
[2021-05-25] MEDS: OXcarbazepine 150 MG TAB PO SCH (10:12)
[2021-05-25] MEDS: DOCUSATE SODIUM 100MG CAPSULE PO SCH (10:14)
[2021-05-25] MEDS ORDERED: OXCA150T21 PO (12:01)
[2021-05-25] MEDS ORDERED: DOCU100C16 PO (12:01)
[2021-05-25] MEDS ORDERED: SENN18TA PO (12:01)
[2021-05-25] MEDS ORDERED: METR70GEL PV (12:01)
[2021-05-25] MEDS ORDERED: ZOLO100T PO (12:01)
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
== END 2021-05-25 13:35 | disposition home or self-care (01) | DRG 751 ==
LOC: M ED 11:50 → M ED INP 21:15 → M PSY 22:39
PROVIDERS: ADMIT Psychiatry & Neurology Psychiatry; ATTEND Student in an Organized Health Care Education/Training Program
DX: F32.3 Major depressive disorder, single episode, severe with psychotic features (principal); F41.1 Generalized anxiety disorder; N73.0 Acute parametritis and pelvic cellulitis; R45.851 Suicidal ideations; F79 Unspecified intellectual disabilities; F43.10 Post-traumatic stress disorder, unspecified; F40.01 Agoraphobia with panic disorder; F42.9 Obsessive-compulsive disorder, unspecified; F81.9 Developmental disorder of scholastic skills, unspecified; Z88.0 Allergy status to penicillin; Z88.8 Allergy status to other drugs, medicaments and biological substances

== ENCOUNTER 2021-05-29 08:51 | Emergency (ER) | payer MEDICAID ==
[~2021-05-29] VITALS: Ht 154.9 cm; Wt 89.8 kg
[~2021-05-29 08:51] MED LIST changes: +DOCU100C16 PO; +METR70GEL PV; +OXCA150T21 PO; +SENN18TA PO; +ZOLO100T PO
[2021-05-29 10:26] LABS: BASO % 0.5 % (0.0-1.0); EOS # 0.2 10^3/uL (0.0-0.5); HEMATOCRIT 42.1 % (36.0-47.0); HEMOGLOBIN 13.9 g/dl (12.0-15.5); LYMPH # 1.9 10^3/uL (1.5-5.0); LYMPH % 22.2 % (24.0-44.0); MEAN CORPUSCULAR HEMOGLOBIN 29.1 pg (27.0-33.0); MEAN CORPUSCULAR VOLUME 88.3 fl (80.0-96.0); MONO # 0.6 10^3/uL (0.0-0.8); MONO % 6.8 % (2.0-8.0); NEUTROPHILS # 5.8 10^3/uL (1.5-8.5); PLATELET COUNT, AUTOMATED 247 10^3/uL (150-450); RED BLOOD COUNT 4.77 10^6/uL (4.00-5.40); WHITE BLOOD COUNT 8.5 10^3/uL (4.0-10.0)
[2021-05-29 11:07] LABS: ALBUMIN 3.9 GM/DL (3.2-5.2); ALT/SGPT 21 U/L (12-78); BILIRUBIN,DIRECT < 0.1 MG/DL (0.0-0.2); BILIRUBIN,TOTAL 0.3 MG/DL (0.2-1.0); BLOOD UREA NITROGEN 13 MG/DL (7-18); CALCIUM LEVEL 8.7 MG/DL (8.5-10.1); CARBON DIOXIDE LEVEL 28 MEQ/L (21-32); CHLORIDE LEVEL 108 MEQ/L (98-107); CREATININE FOR GFR 0.62 MG/DL (0.55-1.30); GLOMERULAR FILTRATION RATE > 60.0 (>60); GLUCOSE, FASTING 82 MG/DL (70-100); POTASSIUM SERUM 4.4 MEQ/L (3.5-5.1); SODIUM LEVEL 140 MEQ/L (136-145); TOTAL PROTEIN 7.4 GM/DL (6.4-8.2)
[2021-05-29 11:08] LABS: FREE T4 0.85 NG/DL (0.76-1.46); LIPASE 94 U/L (73-393); THYROID STIMULATING HORMONE 0.658 uIU/ML (0.358-3.740)
--- NOTE | 2021-05-29 11:08 | REP ---
INDICATION: abd pain, constipation. COMPARISON: None. FINDINGS: KUB shows the intestinal gas pattern to be nonspecific. The organ silhouettes insofar as delineated are unremarkable. There is no evidence of free intraperitoneal air. The stool pattern is unremarkable IMPRESSION: Nonspecific. <Electronically signed by Cecil Ewing > 05/29/21 1100
[2021-05-29] MEDS ORDERED: BISACODYL 10 MG SUPP PR ONE (11:45)
[2021-05-29] MEDS ORDERED: FLEET ENEMA PR ONE (13:10)
[2021-05-29 13:39] VITALS: BP 167/81
[2021-05-29] MEDS ORDERED: MAGNESIUM CITRATE 300 ML BTL PO ONE (13:40)
[2021-05-29] MEDS ORDERED: MIRA3350 PO (14:00)
[2021-05-29] MEDS ORDERED: COLA100C5 PO (14:00)
== END 2021-05-29 14:13 | disposition home or self-care (01) ==
LOC: M ED 08:51
DX: K59.00 Constipation, unspecified (principal); K21.9 Gastro-esophageal reflux disease without esophagitis; F41.9 Anxiety disorder, unspecified; F32.9 Major depressive disorder, single episode, unspecified; Z79.899 Other long term (current) drug therapy; Z88.0 Allergy status to penicillin; Z88.8 Allergy status to other drugs, medicaments and biological substances

== ENCOUNTER 2021-05-30 19:41 | Emergency (ER) | payer MEDICAID ==
[~2021-05-30] VITALS: Ht 154.9 cm; Wt 89.0 kg
[~2021-05-30 19:41] MED LIST changes: +MIRA3350 PO
[2021-05-30 19:42] VITALS: BP 132/63
== END 2021-05-30 20:34 | disposition left against medical advice (07) ==
LOC: M ED 19:41
DX: Z53.21 Procedure and treatment not carried out due to patient leaving prior to being seen by health care provider (principal)

== ENCOUNTER → 2021-06-27 | Outpatient (REF) | payer MEDICAID | LOC: M LAB REF 16:59 | PROVIDERS: ATTEND Obstetrics & Gynecology | DX: N76.0 Acute vaginitis (principal) ==

== ENCOUNTER 2021-07-30 18:28 | Inpatient (IN) | payer MEDICAID ==
[~2021-07-30] VITALS: Ht 152.4 cm; Wt 94.3 kg
[2021-07-30 19:39] LABS: HEMATOCRIT 40.2 % (36.0-47.0); HEMOGLOBIN 13.1 g/dl (12.0-15.5); MEAN CORPUSCULAR HGB CONC 32.6 g/dl (32.0-36.5); MEAN CORPUSCULAR VOLUME 89.1 fl (80.0-96.0); PLATELET COUNT, AUTOMATED 256 10^3/uL (150-450); RED BLOOD COUNT 4.51 10^6/uL (4.00-5.40); WHITE BLOOD COUNT 10.1 10^3/uL (4.0-10.0)
[2021-07-30 20:12] LABS: ACETAMINOPHEN LEVEL < 2.0 UG/ML (10.0-30.0); ALT/SGPT 18 U/L (12-78); BILIRUBIN,DIRECT < 0.1 MG/DL (0.0-0.2); BILIRUBIN,TOTAL 0.4 MG/DL (0.2-1.0); BLOOD UREA NITROGEN 9 MG/DL (7-18); CALCIUM LEVEL 8.7 MG/DL (8.5-10.1); CARBON DIOXIDE LEVEL 25 MEQ/L (21-32); CHLORIDE LEVEL 108 MEQ/L (98-107); CREATININE FOR GFR 0.61 MG/DL (0.55-1.30); ETHYL ALCOHOL (ETHANOL) < 0.003 % (0.000-0.010); GLOMERULAR FILTRATION RATE > 60.0 (>60); GLUCOSE, FASTING 85 MG/DL (70-100); POTASSIUM SERUM 3.6 MEQ/L (3.5-5.1); SALICYLATE LEVEL < 1.7 MG/DL (5.0-30.0); SODIUM LEVEL 140 MEQ/L (136-145); THYROID STIMULATING HORMONE 0.954 uIU/ML (0.358-3.740); TOTAL PROTEIN 7.5 GM/DL (6.4-8.2)
[2021-07-30 20:28] LABS: HCG, SERUM QUALITATIVE NEGATIVE (NEGATIVE)
[2021-07-30 21:02] LABS: AMPHETAMINES LEVEL URINE NEGATIVE (NEGATIVE); BARBITURATES URINE NEGATIVE (NEGATIVE); BENZODIAZEPINES URINE NEGATIVE (NEGATIVE); CANNABINOIDS URINE NEGATIVE (NEGATIVE); COCAINE METABOLITE URINE NEGATIVE (NEGATIVE); METHADONE URINE NEGATIVE (NEGATIVE); OPIATES URINE NEGATIVE (NEGATIVE); PHENCYCLIDINE URINE NEGATIVE (NEGATIVE)
[2021-07-30] MEDS ORDERED: OXCA150T21 PO (23:26)
[2021-07-30] MEDS ORDERED: ZOLO100T PO (23:26)
[2021-07-30] MEDS ORDERED: HOME MED LIST COMPLETE! XX SCH (23:30)
[2021-07-31] MEDS: MIRALAX *UNIT DOSE* 17GM PACKET PO SCH (11:00)
[2021-08-01] MEDS ORDERED: SERTRALINE 100 MG TAB PO SCH (09:00)
[2021-08-01] MEDS ORDERED: OXcarbazepine 150 MG TAB PO SCH (09:00)
[2021-08-01] MEDS: MIRALAX *UNIT DOSE* 17GM PACKET PO SCH (09:14)
[2021-08-01] MEDS ORDERED: CALCIUM CARBONATE 500 MG CHEW U/D PO ONE (14:30)
[2021-08-01 16:23] LABS: RSV AMPLIFICATION NEGATIVE (NEGATIVE)
[2021-08-01] MEDS ORDERED: MAALOX 30 ML SUSP *UDC PO PRN (18:05)
[2021-08-01] MEDS ORDERED: ACETAMINOPHEN TAB 650MG DOSE (2X325MG) PO PRN (18:05)
[2021-08-01] MEDS ORDERED: MOM 30ML SUSPENSION UDC PO PRN (18:05)
[2021-08-01] MEDS ORDERED: traZODone 50 MG TAB PO PRN (18:05)
[2021-08-01] MEDS: OXcarbazepine 150 MG TAB PO SCH (20:36)
[2021-08-01 22:05] VITALS: BP 129/79
[2021-08-02 07:02] VITALS: BP 174/90
[2021-08-02] MEDS: SERTRALINE 100 MG TAB PO SCH (09:30)
[2021-08-02] MEDS: MIRALAX *UNIT DOSE* 17GM PACKET PO SCH (09:30)
[2021-08-02] MEDS: OXcarbazepine 150 MG TAB PO SCH ×2 (09:30→21:43)
[2021-08-02] MEDS ORDERED: BISACODYL 10 MG SUPP PR ONE (15:50)
[2021-08-02 16:17] VITALS: BP 130/78
[2021-08-02] MEDS: LACTOBACILLUS ACIDOPHILUS CAP (BACID) PO SCH (17:10)
[2021-08-02] MEDS: SENNA 8.6 MG TAB (SENOKOT) PO SCH (21:43)
[2021-08-03 06:15] VITALS: BP 134/71
[2021-08-03] MEDS: LACTOBACILLUS ACIDOPHILUS CAP (BACID) PO SCH ×3 (08:00→17:53)
[2021-08-03] MEDS: SERTRALINE 100 MG TAB PO SCH (08:26)
[2021-08-03] MEDS: OXcarbazepine 150 MG TAB PO SCH ×2 (08:26→21:33)
[2021-08-03] MEDS: MIRALAX *UNIT DOSE* 17GM PACKET PO SCH (08:26)
[2021-08-03 17:55] VITALS: BP 140/68
[2021-08-03] MEDS ORDERED: diphenhydrAMINE 50MG CAP PO PRN (18:05)
[2021-08-03] MEDS ORDERED: HYDROCORTISONE 1% CREAM 30 GM TOP PRN (18:15)
[2021-08-03] MEDS: SENNA 8.6 MG TAB (SENOKOT) PO SCH (21:34)
[2021-08-04 07:11] VITALS: BP 128/71
[2021-08-04] MEDS ORDERED: HYDR1CR TOP (08:34)
[2021-08-04] MEDS ORDERED: ZOLO100T PO (08:34)
[2021-08-04] MEDS ORDERED: RISATAB3 PO (08:34)
[2021-08-04] MEDS ORDERED: MIRA1POW3 PO (08:34)
[2021-08-04] MEDS ORDERED: OXCA150T21 PO (08:34)
[2021-08-04] MEDS ORDERED: SENN18TA PO (08:34)
[2021-08-04] MEDS: LACTOBACILLUS ACIDOPHILUS CAP (BACID) PO SCH ×3 (09:33→17:12)
[2021-08-04] MEDS: SERTRALINE 100 MG TAB PO SCH (09:33)
[2021-08-04] MEDS: OXcarbazepine 150 MG TAB PO SCH ×2 (09:33→20:13)
[2021-08-04] MEDS: MIRALAX *UNIT DOSE* 17GM PACKET PO SCH (09:33)
[2021-08-04] MEDS ORDERED: DICYCLOMINE 10 MG CAP PO PRN (13:45)
[2021-08-04] MEDS: PANTOPRAZOLE 40MG TAB (PROTONIX) PO SCH (14:38)
[2021-08-04 16:51] VITALS: BP 123/64
[2021-08-05 06:13] VITALS: BP 133/62
[2021-08-05] MEDS: PANTOPRAZOLE 40MG TAB (PROTONIX) PO SCH (08:47)
[2021-08-05] MEDS: SERTRALINE 100 MG TAB PO SCH (08:47)
[2021-08-05] MEDS: LACTOBACILLUS ACIDOPHILUS CAP (BACID) PO SCH ×3 (08:47→16:59)
[2021-08-05] MEDS: MIRALAX *UNIT DOSE* 17GM PACKET PO SCH (08:48)
[2021-08-05] MEDS: OXcarbazepine 150 MG TAB PO SCH ×2 (08:48→22:00)
[2021-08-05 19:12] VITALS: BP 135/79
[2021-08-06 06:24] VITALS: BP 142/78
[2021-08-06] MEDS: MIRALAX *UNIT DOSE* 17GM PACKET PO SCH (09:39)
[2021-08-06] MEDS: OXcarbazepine 150 MG TAB PO SCH ×2 (09:39→21:24)
[2021-08-06] MEDS: LACTOBACILLUS ACIDOPHILUS CAP (BACID) PO SCH ×3 (09:39→17:04)
[2021-08-06] MEDS: PANTOPRAZOLE 40MG TAB (PROTONIX) PO SCH (09:39)
[2021-08-06] MEDS: SERTRALINE 100 MG TAB PO SCH (09:40)
[2021-08-07 06:56] VITALS: BP 123/60
[2021-08-07] MEDS ORDERED: PANT40TA29 PO (10:21)
[2021-08-07] MEDS: LACTOBACILLUS ACIDOPHILUS CAP (BACID) PO SCH ×2 (10:52→12:30)
[2021-08-07] MEDS: SERTRALINE 100 MG TAB PO SCH (10:52)
[2021-08-07] MEDS: PANTOPRAZOLE 40MG TAB (PROTONIX) PO SCH (10:52)
[2021-08-07] MEDS: OXcarbazepine 150 MG TAB PO SCH (10:52)
[2021-08-07] MEDS: MIRALAX *UNIT DOSE* 17GM PACKET PO SCH (10:53)
== END 2021-08-07 12:30 | disposition home or self-care (01) | DRG 754 ==
LOC: M ED 18:28 → M PSY 08-01 18:04 → M ED INP 08-01 18:04 → M PSY 08-01 22:05
PROVIDERS: ADMIT Psychiatry & Neurology Psychiatry; ATTEND Psychiatry & Neurology Psychiatry
DX: F32.9 Major depressive disorder, single episode, unspecified (principal); F79 Unspecified intellectual disabilities; F41.0 Panic disorder [episodic paroxysmal anxiety]; Z91.14 Patient's other noncompliance with medication regimen; F43.12 Post-traumatic stress disorder, chronic; Z79.899 Other long term (current) drug therapy; Z88.0 Allergy status to penicillin; Z88.8 Allergy status to other drugs, medicaments and biological substances

== ENCOUNTER 2021-09-25 11:42 | Emergency (ER) | payer MEDICAID ==
[~2021-09-25] VITALS: Ht 152.4 cm; Wt 96.3 kg
[~2021-09-25 11:42] MED LIST changes: +HYDR1CR TOP; +MIRA1POW3 PO; +PANT40TA29 PO; +RISATAB3 PO
[2021-09-25 11:43] VITALS: BP 110/56
[2021-09-25] MEDS ORDERED: KETOROLAC 30 MG/ML 1ML VIAL IV ONE (14:30)
[2021-09-25] MEDS ORDERED: NS 1,000 ML IV ONE (14:30)
[2021-09-25] MEDS ORDERED: ONDANSETRON 4MG/2ML VIAL IV ONE (14:30)
[2021-09-25 15:07] LABS: BASO % 0.5 % (0.0-1.0); EOS # 0.1 10^3/uL (0.0-0.5); HEMATOCRIT 38.7 % (36.0-47.0); LYMPH # 1.1 10^3/uL (1.5-5.0); LYMPH % 18.7 % (24.0-44.0); MEAN CORPUSCULAR HEMOGLOBIN 29.4 pg (27.0-33.0); MEAN CORPUSCULAR HGB CONC 33.6 g/dl (32.0-36.5); MEAN CORPUSCULAR VOLUME 87.6 fl (80.0-96.0); MONO # 0.5 10^3/uL (0.0-0.8); MONO % 9.6 % (2.0-8.0); NEUTROPHILS # 3.9 10^3/uL (1.5-8.5); PLATELET COUNT, AUTOMATED 196 10^3/uL (150-450); RED BLOOD COUNT 4.42 10^6/uL (4.00-5.40); WHITE BLOOD COUNT 5.6 10^3/uL (4.0-10.0)
[2021-09-25 15:31] LABS: ALBUMIN 3.7 GM/DL (3.2-5.2); ALT/SGPT 20 U/L (12-78); BILIRUBIN,DIRECT < 0.1 MG/DL (0.0-0.2); BILIRUBIN,TOTAL 0.3 MG/DL (0.2-1.0); LIPASE 63 U/L (73-393); TOTAL PROTEIN 7.3 GM/DL (6.4-8.2)
[2021-09-25] MEDS ORDERED: ISOVUE-370 76% 100ML VIAL As Ordered ONE (16:27)
[2021-09-25] MEDS ORDERED: PANTOPRAZOLE 40MG TAB (PROTONIX) PO ONE (16:55)
[2021-09-25] MEDS ORDERED: ONDA4TAB6 PO (17:02)
== END 2021-09-25 17:22 | disposition home or self-care (01) ==
LOC: M ED 11:42
DX: U07.1 COVID-19 (principal); K21.9 Gastro-esophageal reflux disease without esophagitis; E66.9 Obesity, unspecified; R51.9 Headache, unspecified; F41.9 Anxiety disorder, unspecified; F32.9 Major depressive disorder, single episode, unspecified; F20.9 Schizophrenia, unspecified; Z79.899 Other long term (current) drug therapy; Z88.0 Allergy status to penicillin; Z88.8 Allergy status to other drugs, medicaments and biological substances
CPT/HCPCS: 74177; 80047; 80076; 81001; 83690; 84702; 85025; 96374; 96375; 99283; J1885; J2405; Q9967

== ENCOUNTER 2021-11-21 10:00 | Outpatient (RCR) | payer MEDICAID ==
[~2021-11-21 10:00] MED LIST changes: +ONDA4TAB6 PO
== END 2021-11-23 ==
LOC: M PT 10:00
PROVIDERS: ATTEND Physician Assistant
DX: M54.2 Cervicalgia (principal); M54.50 Low back pain, unspecified

== ENCOUNTER 2021-12-13 09:00 | Emergency (ER) | payer MEDICAID ==
[~2021-12-13] VITALS: Ht 162.6 cm; Wt 96.9 kg
[2021-12-13] MEDS ORDERED: ACETAMINOPHEN 500 MG TAB PO ONE (11:40)
[2021-12-13 12:11] VITALS: BP 119/69
== END 2021-12-13 12:12 | disposition home or self-care (01) ==
LOC: M ED 09:00
DX: R07.81 Pleurodynia (principal); W06.XXXA Fall from bed, initial encounter; Y92.099 Unspecified place in other non-institutional residence as the place of occurrence of the external cause; Y93.9 Activity, unspecified; Y99.9 Unspecified external cause status; F17.200 Nicotine dependence, unspecified, uncomplicated; Z79.899 Other long term (current) drug therapy; Z88.0 Allergy status to penicillin; Z88.8 Allergy status to other drugs, medicaments and biological substances

== ENCOUNTER 2021-12-21 11:03 | Outpatient (RCR) | payer MEDICAID | END 2021-12-23 | LOC: M PT 11:03 | PROVIDERS: ATTEND Physician Assistant | DX: M54.50 Low back pain, unspecified (principal); M54.2 Cervicalgia ==

== ENCOUNTER → 2021-12-27 | Outpatient (REF) | LOC: M LAB 11:57 | PROVIDERS: ATTEND Nurse Practitioner Adult Health | DX: Z00.00 Encounter for general adult medical examination without abnormal findings (principal) ==

== ENCOUNTER 2022-01-15 11:29 | Outpatient (RCR) | payer MEDICAID | END 2022-01-23 | LOC: M PT 11:29 | PROVIDERS: ATTEND Physician Assistant | DX: M54.32 Sciatica, left side (principal); M54.2 Cervicalgia; M54.50 Low back pain, unspecified ==

== ENCOUNTER → 2022-01-25 | Outpatient (REF) | payer MEDICAID ==
[~2022-01-25] MED LIST changes: +CEPH500C PO
[2022-01-25 18:03] LABS: URINE PREG TEST POSITIVE (NEGATIVE)
== END ==
LOC: M LAB REF 17:15
PROVIDERS: ATTEND Physician Assistant
DX: N91.2 Amenorrhea, unspecified (principal)

== ENCOUNTER 2022-01-26 20:00 | Emergency (ER) | payer MEDICAID ==
[~2022-01-26] VITALS: Ht 152.4 cm; Wt 96.9 kg
[~2022-01-26 20:00] MED LIST changes: -CEPH500C PO
[2022-01-26] MEDS ORDERED: BOOSTRIX/ADACEL VACCINE (DIPHTH/PERTUSS/ACELL/TETANUS) 0.5ML SYR IM ONE (21:30)
[2022-01-26] MEDS ORDERED: CEPHALEXIN 500 MG CAP PO ONE (21:40)
[2022-01-26] MEDS ORDERED: DERMABOND TOPICAL SKIN ADHESIVE TOP ONE (21:40)
[2022-01-26] MEDS ORDERED: CEPH500C PO (22:38)
[2022-01-26 22:57] VITALS: BP 130/65
== END 2022-01-26 23:01 | disposition home or self-care (01) ==
LOC: M ED 20:00
DX: O9A.219 Injury, poisoning and certain other consequences of external causes complicating pregnancy, unspecified trimester (principal); W26.8XXA Contact with other sharp object(s), not elsewhere classified, initial encounter; Y92.099 Unspecified place in other non-institutional residence as the place of occurrence of the external cause; O99.330 Smoking (tobacco) complicating pregnancy, unspecified trimester; O99.340 Other mental disorders complicating pregnancy, unspecified trimester; O99.619 Diseases of the digestive system complicating pregnancy, unspecified trimester; O99.210 Obesity complicating pregnancy, unspecified trimester; Z79.899 Other long term (current) drug therapy; Z88.0 Allergy status to penicillin; Z88.8 Allergy status to other drugs, medicaments and biological substances

== ENCOUNTER 2022-02-09 12:18 | Emergency (ER) | payer MEDICAID ==
[~2022-02-09] VITALS: Ht 162.6 cm; Wt 98.7 kg
[~2022-02-09 12:18] MED LIST changes: +CEPH500C PO
[2022-02-09] MEDS ORDERED: PREN27TA3 PO (12:30)
[2022-02-09 13:29] LABS: BASO % 0.2 % (0.0-1.0); EOS # 0.2 10^3/uL (0.0-0.5); EOS % 1.7 % (0.0-3.0); HEMATOCRIT 38.9 % (36.0-47.0); HEMOGLOBIN 12.8 g/dl (12.0-15.5); LYMPH % 17.1 % (24.0-44.0); MEAN CORPUSCULAR HEMOGLOBIN 29.6 pg (27.0-33.0); MEAN CORPUSCULAR HGB CONC 32.9 g/dl (32.0-36.5); MEAN CORPUSCULAR VOLUME 89.8 fl (80.0-96.0); MONO # 0.6 10^3/uL (0.0-0.8); MONO % 5.4 % (2.0-8.0); NEUTROPHILS # 8.6 10^3/uL (1.5-8.5); NEUTROPHILS % 75.3 % (36.0-66.0); PLATELET COUNT, AUTOMATED 200 10^3/uL (150-450); RED BLOOD COUNT 4.33 10^6/uL (4.00-5.40); WHITE BLOOD COUNT 11.4 10^3/uL (4.0-10.0)
[2022-02-09] MEDS ORDERED: METOCLOPRAMIDE 10MG TAB PO ONE (13:55)
[2022-02-09] MEDS ORDERED: ACETAMINOPHEN 325 MG TAB PO ONE (13:55)
[2022-02-09 14:14] LABS: BLOOD UREA NITROGEN 10 MG/DL (7-18); CALCIUM LEVEL 10.1 MG/DL (8.5-10.1); CARBON DIOXIDE LEVEL 22 MEQ/L (21-32); CHLORIDE LEVEL 105 MEQ/L (98-107); CREATININE FOR GFR 0.53 MG/DL (0.55-1.30); GLOMERULAR FILTRATION RATE > 60.0 (>60); GLUCOSE, FASTING 84 MG/DL (70-100); HCG, SERUM QUANTITATIVE 11152 MIU/ML; POTASSIUM SERUM 3.7 MEQ/L (3.5-5.1); SODIUM LEVEL 138 MEQ/L (136-145)
[2022-02-09] MEDS ORDERED: REGL10TA6 PO (15:24)
[2022-02-09 15:56] VITALS: BP 120/69
== END 2022-02-09 15:59 | disposition home or self-care (01) ==
LOC: M ED 12:18
DX: O26.891 Other specified pregnancy related conditions, first trimester (principal); Z3A.01 Less than 8 weeks gestation of pregnancy; Z87.59 Personal history of other complications of pregnancy, childbirth and the puerperium; O99.611 Diseases of the digestive system complicating pregnancy, first trimester; Z79.899 Other long term (current) drug therapy; Z88.0 Allergy status to penicillin; Z88.8 Allergy status to other drugs, medicaments and biological substances

== ENCOUNTER 2022-02-15 10:29 | Emergency (ER) | payer MEDICAID ==
[~2022-02-15] VITALS: Ht 162.6 cm; Wt 96.6 kg
[~2022-02-15 10:29] MED LIST changes: +PREN27TA3 PO
[2022-02-15 10:30] VITALS: BP 122/67
[2022-02-16] MEDS ORDERED: ONDA4TAB6 PO (20:33)
== END 2022-02-15 13:48 | disposition left against medical advice (07) ==
LOC: M ED 10:29
DX: Z53.21 Procedure and treatment not carried out due to patient leaving prior to being seen by health care provider (principal)

== ENCOUNTER 2022-02-16 14:13 | Emergency (ER) | payer MEDICAID ==
[~2022-02-16] VITALS: Ht 162.6 cm; Wt 96.4 kg
[2022-02-16] MEDS ORDERED: NS 1,000 ML IV ONE (16:50)
[2022-02-16] MEDS ORDERED: GI COCKTAIL 50ML BTL(HYOSCYAMINE/MAALOX/LIDOCAINE VISCOUS)(1:3:1) PO ONE (16:50)
[2022-02-16] MEDS ORDERED: METOCLOPRAMIDE INJ 10MG/2ML VIAL (J2765 PER 1) IV ONE (16:50)
[2022-02-16] MEDS ORDERED: SUCRALFATE 1 GM TAB PO ONE (16:50)
[2022-02-16] MEDS ORDERED: ACETAMINOPHEN 500 MG TAB PO ONE (16:50)
[2022-02-16 19:06] LABS: BASO % 0.3 % (0.0-1.0); EOS # 0.2 10^3/uL (0.0-0.5); EOS % 1.6 % (0.0-3.0); HEMATOCRIT 40.1 % (36.0-47.0); HEMOGLOBIN 13.4 g/dl (12.0-15.5); LYMPH # 2.7 10^3/uL (1.5-5.0); MEAN CORPUSCULAR HEMOGLOBIN 29.5 pg (27.0-33.0); MEAN CORPUSCULAR HGB CONC 33.4 g/dl (32.0-36.5); MEAN CORPUSCULAR VOLUME 88.1 fl (80.0-96.0); MONO # 0.5 10^3/uL (0.0-0.8); NEUTROPHILS # 6.2 10^3/uL (1.5-8.5); NEUTROPHILS % 64.8 % (36.0-66.0); PLATELET COUNT, AUTOMATED 240 10^3/uL (150-450); RED BLOOD COUNT 4.55 10^6/uL (4.00-5.40); WHITE BLOOD COUNT 9.6 10^3/uL (4.0-10.0)
[2022-02-16 19:40] LABS: ALBUMIN 3.8 GM/DL (3.2-5.2); BILIRUBIN,DIRECT 0.1 MG/DL (0.0-0.2); BILIRUBIN,TOTAL 0.3 MG/DL (0.2-1.0); TOTAL PROTEIN 7.4 GM/DL (6.4-8.2)
[2022-02-16 20:09] VITALS: BP 120/74
[2022-02-16] MEDS ORDERED: ONDA4TAB6 PO (20:33)
== END 2022-02-16 21:00 | disposition home or self-care (01) ==
LOC: M ED 14:13
DX: O26.891 Other specified pregnancy related conditions, first trimester (principal); O99.611 Diseases of the digestive system complicating pregnancy, first trimester; Z79.899 Other long term (current) drug therapy; Z88.0 Allergy status to penicillin; Z88.8 Allergy status to other drugs, medicaments and biological substances
CPT/HCPCS: 80047; 80076; 83690; 84702; 85025; 96361; 96374; 99284; J2765

== ENCOUNTER → 2022-02-21 | Outpatient (REF) | payer MEDICAID ==
[2022-02-21 16:31] LABS: HEMATOCRIT 40.1 % (36.0-47.0); HEMOGLOBIN 13.5 g/dl (12.0-15.5); MEAN CORPUSCULAR HEMOGLOBIN 29.5 pg (27.0-33.0); MEAN CORPUSCULAR HGB CONC 33.7 g/dl (32.0-36.5); MEAN CORPUSCULAR VOLUME 87.7 fl (80.0-96.0); PLATELET COUNT, AUTOMATED 245 10^3/uL (150-450); RED BLOOD COUNT 4.57 10^6/uL (4.00-5.40)
[2022-02-21 18:59] LABS: HCG, SERUM QUANTITATIVE 50487 MIU/ML; HEPATITIS B SURFACE ANTIGEN NEGATIVE (NEGATIVE); HEPATITIS C VIRUS ABY INDEX 0.8 INDEX (<0.8); HIV 1&2 SCREEN CENTAUR NEGATIVE (NEGATIVE)
== END ==
LOC: M LAB REF 16:04
PROVIDERS: ATTEND Obstetrics & Gynecology
DX: Z32.01 Encounter for pregnancy test, result positive (principal); O36.80X0 Pregnancy with inconclusive fetal viability, not applicable or unspecified

== ENCOUNTER 2022-04-13 14:00 | Emergency (ER) | payer MEDICAID ==
[~2022-04-13] VITALS: Ht 162.6 cm; Wt 95.4 kg
[2022-04-13 14:02] VITALS: BP 141/100
[2022-04-13] MEDS ORDERED: NS 1,000 ML IV ONE (17:40)
[2022-04-13] MEDS ORDERED: METOCLOPRAMIDE 5 MG TAB PO ONE (17:50)
[2022-04-13 18:43] LABS: BASO % 0.2 % (0.0-1.0); EOS % 0.2 % (0.0-3.0); HEMATOCRIT 39.8 % (36.0-47.0); HEMOGLOBIN 13.1 g/dl (12.0-15.5); LYMPH # 1.2 10^3/uL (1.5-5.0); LYMPH % 9.9 % (24.0-44.0); MEAN CORPUSCULAR HEMOGLOBIN 29.2 pg (27.0-33.0); MEAN CORPUSCULAR HGB CONC 32.9 g/dl (32.0-36.5); MEAN CORPUSCULAR VOLUME 88.6 fl (80.0-96.0); MONO # 0.2 10^3/uL (0.0-0.8); MONO % 1.9 % (2.0-8.0); NEUTROPHILS # 10.4 10^3/uL (1.5-8.5); NEUTROPHILS % 87.4 % (36.0-66.0); PLATELET COUNT, AUTOMATED 258 10^3/uL (150-450); RED BLOOD COUNT 4.49 10^6/uL (4.00-5.40); WHITE BLOOD COUNT 11.9 10^3/uL (4.0-10.0)
[2022-04-13 19:26] LABS: AMPHETAMINES LEVEL URINE NEGATIVE (NEGATIVE); BARBITURATES URINE NEGATIVE (NEGATIVE); BENZODIAZEPINES URINE NEGATIVE (NEGATIVE); CANNABINOIDS URINE NEGATIVE (NEGATIVE); COCAINE METABOLITE URINE NEGATIVE (NEGATIVE); METHADONE URINE NEGATIVE (NEGATIVE); OPIATES URINE NEGATIVE (NEGATIVE); PHENCYCLIDINE URINE NEGATIVE (NEGATIVE)
[2022-04-13 19:34] LABS: ALBUMIN 3.8 GM/DL (3.2-5.2); BILIRUBIN,DIRECT 0.1 MG/DL (0.0-0.2); BILIRUBIN,TOTAL 0.2 MG/DL (0.2-1.0); FREE T4 1.06 NG/DL (0.76-1.46); THYROID STIMULATING HORMONE 0.561 uIU/ML (0.358-3.740); TOTAL PROTEIN 7.9 GM/DL (6.4-8.2)
== END 2022-04-13 21:23 | disposition home or self-care (01) ==
LOC: M ED 14:00
DX: T88.7XXA Unspecified adverse effect of drug or medicament, initial encounter (principal); R11.2 Nausea with vomiting, unspecified; R41.9 Unspecified symptoms and signs involving cognitive functions and awareness; K21.9 Gastro-esophageal reflux disease without esophagitis; F17.200 Nicotine dependence, unspecified, uncomplicated; Z79.899 Other long term (current) drug therapy; Z88.0 Allergy status to penicillin; Z88.8 Allergy status to other drugs, medicaments and biological substances

== ENCOUNTER 2022-06-28 12:41 | Emergency (ER) | payer MEDICAID ==
[~2022-06-28] VITALS: Ht 160 cm; Wt 96.1 kg
[2022-06-28 17:33] LABS: BASO % 0.3 % (0.0-1.0); EOS # 0.1 10^3/uL (0.0-0.5); EOS % 1.3 % (0.0-3.0); HEMATOCRIT 37.8 % (36.0-47.0); HEMOGLOBIN 12.6 g/dl (12.0-15.5); LYMPH % 21.5 % (24.0-44.0); MEAN CORPUSCULAR HEMOGLOBIN 30.1 pg (27.0-33.0); MEAN CORPUSCULAR HGB CONC 33.3 g/dl (32.0-36.5); MEAN CORPUSCULAR VOLUME 90.4 fl (80.0-96.0); MONO # 0.5 10^3/uL (0.0-0.8); MONO % 5.5 % (2.0-8.0); NEUTROPHILS # 6.6 10^3/uL (1.5-8.5); NEUTROPHILS % 71.1 % (36.0-66.0); PLATELET COUNT, AUTOMATED 192 10^3/uL (150-450); RED BLOOD COUNT 4.18 10^6/uL (4.00-5.40); WHITE BLOOD COUNT 9.3 10^3/uL (4.0-10.0)
[2022-06-28] MEDS ORDERED: ONDANSETRON 4MG 2ML VIAL IV ONE (18:05)
[2022-06-28] MEDS ORDERED: NS 1,000 ML IV ONE (18:05)
[2022-06-28 18:16] LABS: ALT/SGPT 10 U/L (12-78); BILIRUBIN,DIRECT 0.1 MG/DL (0.0-0.2); BILIRUBIN,TOTAL 0.2 MG/DL (0.2-1.0); BLOOD UREA NITROGEN 6 MG/DL (7-18); CARBON DIOXIDE LEVEL 13 MEQ/L (21-32); CHLORIDE LEVEL 124 MEQ/L (98-107); CREATININE FOR GFR < 0.15 MG/DL (0.55-1.30); GLOMERULAR FILTRATION RATE > 60.0 (>60); GLUCOSE, FASTING 47 MG/DL (70-100); LIPASE 38 U/L (73-393); POTASSIUM SERUM 2.1 MEQ/L (3.5-5.1); SODIUM LEVEL 146 MEQ/L (136-145); TOTAL PROTEIN 4.1 GM/DL (6.4-8.2)
[2022-06-28] MEDS ORDERED: KCL 10MEQ/100ML SWI (KRUN) 10 MEQ in IV 1 EA IV ONE (18:20)
[2022-06-28 18:27] LABS: HCG, SERUM QUALITATIVE POSITIVE (NEGATIVE)
[2022-06-28] MEDS ORDERED: DEXTROSE 50% 50 ML SYRINGE IV STA (18:27)
[2022-06-28] MEDS ORDERED: UNIS25TA3 PO (20:25)
[2022-06-28] MEDS ORDERED: PYRI25TA2 PO (20:25)
[2022-06-28] MEDS ORDERED: ONDA4TAB6 PO (20:25)
[2022-06-28 20:30] VITALS: BP 134/74
== END 2022-06-28 20:44 | disposition home or self-care (01) ==
LOC: M ED 12:41
DX: O21.9 Vomiting of pregnancy, unspecified (principal); Z3A.00 Weeks of gestation of pregnancy not specified; Z88.0 Allergy status to penicillin; Z88.8 Allergy status to other drugs, medicaments and biological substances; Z79.899 Other long term (current) drug therapy
CPT/HCPCS: 80047; 80048; 80076; 83690; 84703; 85025; 93005; 96361; 96365; 96375; 99284; J2405

== ENCOUNTER → 2022-07-03 | Outpatient (REF) | payer MEDICAID ==
[~2022-07-03] MED LIST changes: +PYRI25TA2 PO; +UNIS25TA3 PO
[2022-07-03 17:50] LABS: HEMATOCRIT 37.9 % (36.0-47.0); HEMOGLOBIN 12.4 g/dl (12.0-15.5); MEAN CORPUSCULAR HEMOGLOBIN 29.8 pg (27.0-33.0); MEAN CORPUSCULAR HGB CONC 32.7 g/dl (32.0-36.5); MEAN CORPUSCULAR VOLUME 91.1 fl (80.0-96.0); PLATELET COUNT, AUTOMATED 212 10^3/uL (150-450); RED BLOOD COUNT 4.16 10^6/uL (4.00-5.40); WHITE BLOOD COUNT 9.3 10^3/uL (4.0-10.0)
[2022-07-03 19:26] LABS: HEPATITIS B SURFACE ANTIGEN NEGATIVE (NEGATIVE); HEPATITIS C VIRUS ABY INDEX 0.6 INDEX (<0.8); HIV 1&2 SCREEN CENTAUR NEGATIVE (NEGATIVE)
[2022-07-03 19:59] LABS: HCG, SERUM QUANTITATIVE 20297 MIU/ML
== END ==
LOC: M LAB REF 16:36
PROVIDERS: ATTEND Obstetrics & Gynecology
DX: O36.80X0 Pregnancy with inconclusive fetal viability, not applicable or unspecified (principal); Z3A.00 Weeks of gestation of pregnancy not specified

== ENCOUNTER → 2022-07-26 | Outpatient (REF) | payer MEDICAID | LOC: M LAB REF 16:09 | PROVIDERS: ATTEND Advanced Practice Midwife | DX: O36.80X0 Pregnancy with inconclusive fetal viability, not applicable or unspecified (principal); O02.1 Missed abortion ==

== ENCOUNTER → 2022-08-02 | Outpatient (REF) | payer MEDICAID | LOC: M LAB REF 12:38 | PROVIDERS: ATTEND Advanced Practice Midwife | DX: O02.1 Missed abortion (principal) ==

== ENCOUNTER → 2022-08-09 | Outpatient (REF) | payer MEDICAID | LOC: M LAB REF 12:22 | PROVIDERS: ATTEND Advanced Practice Midwife | DX: O02.1 Missed abortion (principal) ==

== ENCOUNTER → 2022-08-31 | Outpatient (REF) | payer MEDICAID ==
[2022-08-31 18:22] LABS: ALKALINE PHOSPHATASE 101 U/L (46-116); ALT/SGPT 13 U/L (7.0-40); AST/SGOT 16 U/L (<34); BILIRUBIN,TOTAL 0.2 MG/DL (0.3-1.2); BLOOD UREA NITROGEN 10 MG/DL (9-23); CALCIUM LEVEL 9.1 MG/DL (8.5-10.1); CARBON DIOXIDE LEVEL 26 MMOL/L (20-31); CHLORIDE LEVEL 103 MMOL/L (98-107); CREATININE FOR GFR 0.51 MG/DL (0.55-1.30); GLOMERULAR FILTRATION RATE > 60.0 (>60); GLUCOSE, FASTING 79 MG/DL (60-100); HCG, SERUM QUANTITATIVE 20.9 MIU/ML (<4.2); POTASSIUM SERUM 4.2 MMOL/L (3.5-5.1); SODIUM LEVEL 139 MMOL/L (136-145); TOTAL PROTEIN 7.3 G/DL (5.7-8.2)
[2022-08-31 18:24] LABS: TOTAL 25(OH) VITAMIN D 19.7 NG/ML (20.0-100.0)
[2022-08-31 19:02] LABS: HEPATITIS C VIRUS ABY INDEX 0.5 INDEX (<0.8)
== END ==
LOC: M LAB REF 16:24
PROVIDERS: ATTEND Physician Assistant
DX: E87.6 Hypokalemia (principal); E55.9 Vitamin D deficiency, unspecified; Z11.59 Encounter for screening for other viral diseases

== ENCOUNTER → 2022-09-10 | Outpatient (REF) | payer MEDICAID | LOC: M LAB REF 16:50 | PROVIDERS: ATTEND Physician Assistant | DX: O03.9 Complete or unspecified spontaneous abortion without complication (principal) ==

== ENCOUNTER → 2022-10-02 | Outpatient (CLI) | payer MEDICAID | LOC: M WUC 13:44 | PROVIDERS: ATTEND Physician Assistant | DX: N92.6 Irregular menstruation, unspecified (principal) ==

== ENCOUNTER → 2022-10-22 | Outpatient (CLI) | payer MEDICAID | LOC: M RAD 13:16 | PROVIDERS: ATTEND Physician Assistant | DX: O02.81 Inappropriate change in quantitative human chorionic gonadotropin (hCG) in early pregnancy (principal) ==

== ENCOUNTER → 2022-10-22 | Outpatient (CLI) | payer MEDICAID | LOC: M LAB 14:44 | PROVIDERS: ATTEND Physician Assistant | DX: R79.89 Other specified abnormal findings of blood chemistry (principal) ==

== ENCOUNTER 2022-10-25 18:05 | Emergency (ER) | payer MEDICAID ==
[2022-10-25 22:19] VITALS: BP 135/68
== END 2022-10-25 22:21 | disposition home or self-care (01) ==
LOC: M ED 18:05
DX: F41.9 Anxiety disorder, unspecified (principal); R89.1 Abnormal level of hormones in specimens from other organs, systems and tissues; R11.2 Nausea with vomiting, unspecified; Z88.0 Allergy status to penicillin; Z88.8 Allergy status to other drugs, medicaments and biological substances

== ENCOUNTER → 2022-10-29 | Outpatient (CLI) | payer MEDICAID | LOC: M LABSMTC 09:41 | PROVIDERS: ATTEND Anesthesiology | DX: Z01.812 Encounter for preprocedural laboratory examination (principal) ==

== ENCOUNTER → 2022-10-30 | Outpatient (CLI) | payer MEDICAID | LOC: M PLAIMG 12:58 | PROVIDERS: ATTEND Physician Assistant | DX: R41.3 Other amnesia (principal); F79 Unspecified intellectual disabilities ==

== ENCOUNTER → 2022-10-31 | Day surgery (SDC) | payer MEDICAID ==
[~2022-10-31] VITALS: Ht 160 cm; Wt 98.9 kg
[~2022-10-31] MED LIST changes: +ACETAMINOPHEN 1000MG 100ML IV BAG As Ordered ONE; +ACETAMINOPHEN 500 MG TAB PO ONE; +CHLOROPROCAINE PRES. FREE 3% 20ML VIAL As Ordered ONE; +DOXYCYCLINE HYCLATE 100MG/10ML VIAL As Ordered ONE; +FAMO1TAB11; +HYDROMORPHONE HCL 0.5 MG/ 0.5 ML SYRINGE IV PRN; +KETOROLAC 60MG 2ML VIAL As Ordered ONE; +LIDOCAINE 1% SDV 30ML VIAL As Ordered ONE; +LIDOCAINE 2% 100MG/5ML SDV (FOR ANES.) As Ordered ONE; +LR 1,000 ML IV SCH; +METHYLERGONOVINE MALEATE 0.2MG/ML 1ML VIAL As Ordered ONE; +MIDAZOLAM INJ 2MG/2ML VIAL As Ordered ONE; +ONDANSETRON 4MG 2ML VIAL As Ordered ONE; +ONDANSETRON 4MG 2ML VIAL IV PRN; +VITA200016; +fentaNYL 100 MCG/2 ML INJECTION As Ordered ONE; +fentaNYL 100 MCG/2 ML INJECTION IV PRN; +oxyCODONE 5MG TAB PO PRN; +propofoL 200 MG/20 ML VIAL As Ordered ONE
[2022-10-31 20:45] VITALS: BP 122/58
== END | disposition home or self-care (01) ==
LOC: M SDC 14:35
PROVIDERS: ATTEND Specialist
DX: O02.1 Missed abortion (principal); F41.9 Anxiety disorder, unspecified; F32.A Depression, unspecified; F43.10 Post-traumatic stress disorder, unspecified; E66.9 Obesity, unspecified; Z88.0 Allergy status to penicillin; Z88.8 Allergy status to other drugs, medicaments and biological substances
CPT/HCPCS: 59820; 88305; J0131; J1100; J1885; J2250; J2401; J2405; J3010

== ENCOUNTER 2022-11-08 12:11 | Emergency (ER) | payer MEDICAID ==
[~2022-11-08] VITALS: Ht 162.6 cm; Wt 98.5 kg
[~2022-11-08 12:11] MED LIST changes: -ACETAMINOPHEN 1000MG 100ML IV BAG As Ordered ONE; -ACETAMINOPHEN 500 MG TAB PO ONE; -CHLOROPROCAINE PRES. FREE 3% 20ML VIAL As Ordered ONE; -DOXYCYCLINE HYCLATE 100MG/10ML VIAL As Ordered ONE; -FAMO1TAB11; -HYDROMORPHONE HCL 0.5 MG/ 0.5 ML SYRINGE IV PRN; -KETOROLAC 60MG 2ML VIAL As Ordered ONE; -LIDOCAINE 1% SDV 30ML VIAL As Ordered ONE; -LIDOCAINE 2% 100MG/5ML SDV (FOR ANES.) As Ordered ONE; -LR 1,000 ML IV SCH; -METHYLERGONOVINE MALEATE 0.2MG/ML 1ML VIAL As Ordered ONE; -MIDAZOLAM INJ 2MG/2ML VIAL As Ordered ONE; -ONDANSETRON 4MG 2ML VIAL As Ordered ONE; -ONDANSETRON 4MG 2ML VIAL IV PRN; -VITA200016; -fentaNYL 100 MCG/2 ML INJECTION As Ordered ONE; -fentaNYL 100 MCG/2 ML INJECTION IV PRN; -oxyCODONE 5MG TAB PO PRN; -propofoL 200 MG/20 ML VIAL As Ordered ONE
[2022-11-08 12:12] VITALS: BP 133/88
[2022-11-08] MEDS ORDERED: FAMO1TAB11 (12:21)
[2022-11-08] MEDS ORDERED: VITA200016 (12:21)
[2022-11-08 13:41] LABS: BASO % 0.4 % (0.0-1.0); EOS # 0.2 10^3/uL (0.0-0.5); EOS % 2.4 % (0.0-3.0); HEMATOCRIT 39.2 % (36.0-47.0); LYMPH # 2.4 10^3/uL (1.5-5.0); LYMPH % 29.7 % (24.0-44.0); MEAN CORPUSCULAR HEMOGLOBIN 29.8 pg (27.0-33.0); MEAN CORPUSCULAR HGB CONC 33.2 g/dl (32.0-36.5); MEAN CORPUSCULAR VOLUME 89.9 fl (80.0-96.0); MONO # 0.5 10^3/uL (0.0-0.8); MONO % 5.9 % (2.0-8.0); NEUTROPHILS # 4.9 10^3/uL (1.5-8.5); NEUTROPHILS % 61.1 % (36.0-66.0); PLATELET COUNT, AUTOMATED 210 10^3/uL (150-450); RED BLOOD COUNT 4.36 10^6/uL (4.00-5.40)
[2022-11-08 14:06] LABS: HCG, SERUM QUANTITATIVE 4.4 MIU/ML (<4.2)
[2022-11-08 14:08] LABS: ALBUMIN 3.7 G/DL (3.2-5.2); ALKALINE PHOSPHATASE 78 U/L (46-116); ALT/SGPT 11 U/L (7.0-40); AST/SGOT 11 U/L (<34); BILIRUBIN,TOTAL 0.4 MG/DL (0.3-1.2); BLOOD UREA NITROGEN 11 MG/DL (9-23); CALCIUM LEVEL 8.4 MG/DL (8.5-10.1); CARBON DIOXIDE LEVEL 27 MMOL/L (20-31); CHLORIDE LEVEL 108 MMOL/L (98-107); GLOMERULAR FILTRATION RATE > 60.0 (>60); GLUCOSE, FASTING 76 MG/DL (60-100); POTASSIUM SERUM 3.7 MMOL/L (3.5-5.1); SODIUM LEVEL 140 MMOL/L (136-145); TOTAL PROTEIN 6.6 G/DL (5.7-8.2)
[2022-11-08 16:02] LABS: GC DNA AMPLIFICATION NEGATIVE (NEGATIVE)
== END 2022-11-08 17:02 | disposition home or self-care (01) ==
LOC: M ED 12:11
DX: T88.9XXA Complication of surgical and medical care, unspecified, initial encounter (principal); N89.8 Other specified noninflammatory disorders of vagina; Z88.0 Allergy status to penicillin; Z88.8 Allergy status to other drugs, medicaments and biological substances; Z79.899 Other long term (current) drug therapy

== ENCOUNTER → 2022-11-14 | Outpatient (CLI) | payer MEDICAID ==
[~2022-11-14] MED LIST changes: +FAMO1TAB11; +VITA200016
== END ==
LOC: M PLALAB 14:46
PROVIDERS: ATTEND Specialist
DX: N92.6 Irregular menstruation, unspecified (principal)

== ENCOUNTER → 2022-11-30 | Outpatient (REF) | payer MEDICAID ==
[2022-11-30 16:10] LABS: APPEARANCE, URINE HAZY (CLEAR); BACTERIA, URINE AUTO NEGATIVE (NEGATIVE); BILIRUBIN, URINE AUTO NEGATIVE (NEGATIVE); BLOOD, URINE BLOOD 2+ (NEGATIVE); COLOR, URINE YELLOW (YELLOW); GLUCOSE, URINE (UA) AUTO NEGATIVE (NEGATIVE); KETONE, URINE AUTO NEGATIVE (NEGATIVE); LEUKOCYTE ESTERASE, URINE AUTO NEGATIVE (NEGATIVE); MUCUS, URINE SMALL (NEGATIVE); NITRITE, URINE AUTO NEGATIVE (NEGATIVE); PROTEIN, URINE AUTO NEGATIVE (NEGATIVE); RBC, URINE AUTO 1 /HPF (0-3); SPECIFIC GRAVITY URINE AUTO 1.018 (1.002-1.035); SQUAMOUS EPITHELIAL CELL UR AU 7 /HPF (0-6); UROBILINOGEN, URINE AUTO 0.2 mg/dL (0.0-2.0); WBC, URINE AUTO 1 /HPF (0-3)
[2022-11-30 19:14] LABS: GC DNA AMPLIFICATION NEGATIVE (NEGATIVE)
== END ==
LOC: M LAB REF 15:49
PROVIDERS: ATTEND Physician Assistant Medical
DX: N39.0 Urinary tract infection, site not specified (principal)

== ENCOUNTER → 2022-12-19 | Outpatient (REF) | payer MEDICAID | LOC: M SFHCWAGY 10:27 | PROVIDERS: ATTEND Specialist | DX: R10.2 Pelvic and perineal pain (principal) ==

== ENCOUNTER → 2023-01-09 | Outpatient (REF) | payer MEDICAID | LOC: M LAB REF 16:38 | PROVIDERS: ATTEND Physician Assistant | DX: E55.9 Vitamin D deficiency, unspecified (principal) ==

== ENCOUNTER → 2023-01-14 | Outpatient (CLI) | payer MEDICAID | LOC: M RAD 12:15 | PROVIDERS: ATTEND Specialist | DX: R10.2 Pelvic and perineal pain (principal) ==

== ENCOUNTER 2023-01-26 11:35 | Emergency (ER) | payer MEDICAID ==
[~2023-01-26] VITALS: Ht 180.3 cm; Wt 61.0 kg
[2023-01-26 11:36] VITALS: BP 140/76; TEMP 96.4; O2SAT 98
[2023-01-26 13:05] LABS: HEMATOCRIT 38.2 % (36.0-47.0); HEMOGLOBIN 12.7 g/dl (12.0-15.5); MEAN CORPUSCULAR HGB CONC 33.2 g/dl (32.0-36.5); MEAN CORPUSCULAR VOLUME 90.1 fl (80.0-96.0); PLATELET COUNT, AUTOMATED 206 10^3/uL (150-450); RED BLOOD COUNT 4.24 10^6/uL (4.00-5.40); WHITE BLOOD COUNT 6.7 10^3/uL (4.0-10.0)
[2023-01-26 13:31] LABS: ETHYL ALCOHOL (ETHANOL) < 0.003 % (0.000-0.010)
[2023-01-26 13:32] LABS: ACETAMINOPHEN LEVEL < 2.0 UG/ML (10.0-20.0); SALICYLATE LEVEL < 3.0 MG/DL (<30)
[2023-01-26 13:33] LABS: ALKALINE PHOSPHATASE 74 U/L (46-116); ALT/SGPT 12 U/L (7.0-40); AST/SGOT < 8 U/L (<34); BILIRUBIN,DIRECT 0.2 MG/DL (<0.4); BILIRUBIN,TOTAL 0.6 MG/DL (0.3-1.2); BLOOD UREA NITROGEN 10 MG/DL (9-23); CARBON DIOXIDE LEVEL 25 MMOL/L (20-31); CHLORIDE LEVEL 108 MMOL/L (98-107); CREATININE FOR GFR 0.72 MG/DL (0.55-1.30); GLOMERULAR FILTRATION RATE > 60.0 (>60); GLUCOSE, FASTING 83 MG/DL (60-100); POTASSIUM SERUM 3.7 MMOL/L (3.5-5.1); SODIUM LEVEL 140 MMOL/L (136-145); TOTAL PROTEIN 6.8 G/DL (5.7-8.2)
[2023-01-26 13:34] LABS: THYROID STIMULATING HORMONE 0.421 uIU/ML (0.55-4.78)
[2023-01-26 13:39] LABS: HCG, SERUM QUALITATIVE NEGATIVE (NEGATIVE)
[2023-01-26 13:40] LABS: AMPHETAMINES LEVEL URINE NEGATIVE (NEGATIVE); BARBITURATES URINE NEGATIVE (NEGATIVE); BENZODIAZEPINES URINE NEGATIVE (NEGATIVE); CANNABINOIDS URINE NEGATIVE (NEGATIVE); COCAINE METABOLITE URINE NEGATIVE (NEGATIVE); METHADONE URINE NEGATIVE (NEGATIVE); OPIATES URINE NEGATIVE (NEGATIVE); PHENCYCLIDINE URINE NEGATIVE (NEGATIVE)
== END 2023-01-26 14:55 | disposition home or self-care (01) ==
LOC: M ED 11:35
DX: F32.A Depression, unspecified (principal); Z79.899 Other long term (current) drug therapy; Z88.0 Allergy status to penicillin; Z88.8 Allergy status to other drugs, medicaments and biological substances

== ENCOUNTER → 2023-02-07 | Outpatient (REF) | payer MEDICAID ==
[~2023-02-07] MED LIST changes: +SENN-111 PO; -SENN18TA PO
[2023-02-07 17:00] LABS: FREE T3 4.3 PG/ML (2.3-4.2); TOTAL T3 141.8 NG/DL (60.0-181.0)
[2023-02-07 17:01] LABS: FREE T4 1.06 NG/DL (0.89-1.76); HCG, SERUM QUALITATIVE NEGATIVE (NEGATIVE)
== END ==
LOC: M LAB REF 16:11
PROVIDERS: ATTEND Physician Assistant
DX: R89.1 Abnormal level of hormones in specimens from other organs, systems and tissues (principal); N91.2 Amenorrhea, unspecified

== ENCOUNTER → 2023-03-19 | Outpatient (CLI) | payer MEDICAID | LOC: M LAB 10:25 | PROVIDERS: ATTEND Physician Assistant | DX: O26.891 Other specified pregnancy related conditions, first trimester (principal); Z3A.00 Weeks of gestation of pregnancy not specified ==

== ENCOUNTER → 2023-03-19 | Outpatient (CLI) | payer MEDICAID | LOC: M LAB 10:17 | PROVIDERS: ATTEND Physician Assistant | DX: K21.9 Gastro-esophageal reflux disease without esophagitis (principal); K59.00 Constipation, unspecified; R19.7 Diarrhea, unspecified ==

== ENCOUNTER → 2023-03-20 | Outpatient (REF) | payer MEDICAID | LOC: M LAB REF 11:03 | PROVIDERS: ATTEND Physician Assistant | DX: K21.9 Gastro-esophageal reflux disease without esophagitis (principal); K59.00 Constipation, unspecified; R19.7 Diarrhea, unspecified ==

== ENCOUNTER 2023-03-25 15:20 | Emergency (ER) | payer MEDICAID ==
[~2023-03-25] VITALS: Ht 152.4 cm; Wt 97.9 kg
[2023-03-25 17:33] LABS: BASO % 0.3 % (0.0-1.0); EOS # 0.2 10^3/uL (0.0-0.5); EOS % 1.5 % (0.0-3.0); HEMATOCRIT 38.9 % (36.0-47.0); HEMOGLOBIN 12.9 g/dl (12.0-15.5); LYMPH # 2.3 10^3/uL (1.5-5.0); LYMPH % 20.7 % (24.0-44.0); MEAN CORPUSCULAR HEMOGLOBIN 29.8 pg (27.0-33.0); MEAN CORPUSCULAR HGB CONC 33.2 g/dl (32.0-36.5); MEAN CORPUSCULAR VOLUME 89.8 fl (80.0-96.0); MONO # 0.6 10^3/uL (0.0-0.8); MONO % 5.3 % (2.0-8.0); NEUTROPHILS # 7.9 10^3/uL (1.5-8.5); NEUTROPHILS % 71.8 % (36.0-66.0); PLATELET COUNT, AUTOMATED 211 10^3/uL (150-450); RED BLOOD COUNT 4.33 10^6/uL (4.00-5.40)
[2023-03-25 17:51] LABS: LIPASE 31 U/L (12-53)
[2023-03-25 17:53] LABS: ALBUMIN 3.8 G/DL (3.2-5.2); ALKALINE PHOSPHATASE 78 U/L (46-116); ALT/SGPT < 9 U/L (7.0-40); AST/SGOT < 8 U/L (<34); BILIRUBIN,DIRECT < 0.1 MG/DL (<0.4); BILIRUBIN,TOTAL 0.3 MG/DL (0.3-1.2)
[2023-03-25 21:18] LABS: CK-MB VALUE MASS < 1.0 NG/ML (<3.6)
[2023-03-25 21:19] LABS: CPK CREATINE PHOSPHOKINASE 36 U/L (34-145); MB/CK RELATIVE INDEX 2.77 (< OR =4)
[2023-03-25 22:29] VITALS: BP 134/79; TEMP 99; O2SAT 99
== END 2023-03-25 22:43 | disposition home or self-care (01) ==
LOC: M ED 15:20
DX: O26.891 Other specified pregnancy related conditions, first trimester (principal); O99.611 Diseases of the digestive system complicating pregnancy, first trimester; O99.341 Other mental disorders complicating pregnancy, first trimester; O99.331 Smoking (tobacco) complicating pregnancy, first trimester; Z3A.01 Less than 8 weeks gestation of pregnancy; Z88.0 Allergy status to penicillin; Z88.8 Allergy status to other drugs, medicaments and biological substances

== ENCOUNTER 2023-04-21 15:14 | Emergency (ER) | payer MEDICAID ==
[~2023-04-21] VITALS: Ht 152.4 cm; Wt 97.4 kg
[2023-04-21] MEDS ORDERED: NAPR220C14 PO (15:29)
[2023-04-21 16:57] LABS: BLOOD UREA NITROGEN 9 MG/DL (9-23); CALCIUM LEVEL 9.1 MG/DL (8.5-10.1); CARBON DIOXIDE LEVEL 25 MMOL/L (20-31); CHLORIDE LEVEL 107 MMOL/L (98-107); CREATININE FOR GFR 0.51 MG/DL (0.55-1.30); GLOMERULAR FILTRATION RATE > 60.0 (>60); GLUCOSE, FASTING 79 MG/DL (60-100); POTASSIUM SERUM 4.2 MMOL/L (3.5-5.1); SODIUM LEVEL 141 MMOL/L (136-145)
[2023-04-21 17:11] LABS: HCG, SERUM QUANTITATIVE 8491.6 MIU/ML (<4.2)
[2023-04-21 17:15] VITALS: TEMP 97.7
[2023-04-21 17:17] LABS: BASO % 0.3 % (0.0-1.0); EOS # 0.2 10^3/uL (0.0-0.5); EOS % 2.1 % (0.0-3.0); HEMATOCRIT 38.5 % (36.0-47.0); HEMOGLOBIN 12.7 g/dl (12.0-15.5); LYMPH # 2.5 10^3/uL (1.5-5.0); MEAN CORPUSCULAR HEMOGLOBIN 29.5 pg (27.0-33.0); MEAN CORPUSCULAR VOLUME 89.5 fl (80.0-96.0); MONO # 0.5 10^3/uL (0.0-0.8); MONO % 5.5 % (2.0-8.0); NEUTROPHILS # 5.7 10^3/uL (1.5-8.5); NEUTROPHILS % 63.8 % (36.0-66.0); PLATELET COUNT, AUTOMATED 200 10^3/uL (150-450)
[2023-04-21 19:51] LABS: GC DNA AMPLIFICATION NEGATIVE (NEGATIVE)
[2023-04-21 21:15] VITALS: BP 126/65; O2SAT 98
== END 2023-04-21 21:30 | disposition home or self-care (01) ==
LOC: M ED 15:14 → EDBD 15:14 → M ED 21:30
DX: O02.1 Missed abortion (principal); Z87.59 Personal history of other complications of pregnancy, childbirth and the puerperium; Z88.0 Allergy status to penicillin; Z88.8 Allergy status to other drugs, medicaments and biological substances

== ENCOUNTER 2023-04-22 22:58 | Day surgery (SDC) | payer MEDICAID ==
[~2023-04-22] VITALS: Ht 152.4 cm; Wt 108.0 kg
[~2023-04-22 22:58] MED LIST changes: +NAPR220C14 PO
[2023-04-22 23:43] LABS: HEMATOCRIT 35.2 % (36.0-47.0); HEMOGLOBIN 11.8 g/dl (12.0-15.5)
[2023-04-22] MEDS ORDERED: fentaNYL 100 MCG/2 ML INJECTION IV ONE (23:50)
[2023-04-23] MEDS ORDERED: NS 1,000 ML IV SCH (01:25)
[2023-04-23] MEDS ORDERED: NS 1,000 ML IV ONE (02:05)
[2023-04-23] MEDS ORDERED: ONDANSETRON 4MG 2ML VIAL IV ONE (02:55)
[2023-04-23] MEDS ORDERED: MORPHINE 2 MG/ML 1ML VIAL IV PRN (07:30)
[2023-04-23] MEDS ORDERED: LIDOCAINE 2% 100MG/5ML SDV (FOR ANES.) As Ordered ONE (08:19)
[2023-04-23] MEDS ORDERED: propofoL 200 MG/20 ML VIAL As Ordered ONE (08:19)
[2023-04-23] MEDS ORDERED: ONDANSETRON 4MG 2ML VIAL As Ordered ONE (09:09)
[2023-04-23] MEDS ORDERED: MIDAZOLAM INJ 2MG/2ML VIAL As Ordered ONE (09:09)
[2023-04-23] MEDS ORDERED: fentaNYL 100 MCG/2 ML INJECTION As Ordered ONE (09:09)
[2023-04-23] MEDS ORDERED: ACETAMINOPHEN 1000MG 100ML IV BAG As Ordered ONE (09:11)
[2023-04-23] MEDS ORDERED: LIDOCAINE 1% MDV 20ML VIAL As Ordered ONE (09:19)
[2023-04-23] MEDS ORDERED: METHYLERGONOVINE MALEATE 0.2MG/ML 1ML VIAL As Ordered ONE (09:19)
[2023-04-23] MEDS ORDERED: KETOROLAC 60MG 2ML VIAL As Ordered ONE (09:32)
[2023-04-23] MEDS ORDERED: ONDANSETRON 4MG 2ML VIAL IV PRN (09:45)
[2023-04-23] MEDS ORDERED: HYDROMORPHONE HCL 0.5 MG/ 0.5 ML SYRINGE IV PRN (09:45)
[2023-04-23] MEDS ORDERED: oxyCODONE 5MG TAB PO PRN (09:45)
[2023-04-23] MEDS ORDERED: fentaNYL 100 MCG/2 ML INJECTION IV PRN (09:45)
[2023-04-23] MEDS ORDERED: LR 1,000 ML IV SCH ×2 (09:45→10:25)
[2023-04-23] MEDS ORDERED: DOXYCYCLINE HYCLATE 100MG TABLET PO ONE (10:30)
[2023-04-23] MEDS ORDERED: ACETAMINOPHEN 500 MG TAB PO ONE (10:30)
[2023-04-23 11:45] VITALS: BP 126/68; TEMP 97.2; O2SAT 98
== END 2023-04-23 11:48 | disposition home or self-care (01) ==
LOC: M ED 22:58 → M SDC 04-23 07:48
PROVIDERS: ATTEND Specialist
DX: O03.4 Incomplete spontaneous abortion without complication (principal); E66.9 Obesity, unspecified; K21.9 Gastro-esophageal reflux disease without esophagitis; F41.9 Anxiety disorder, unspecified; F32.A Depression, unspecified; F20.9 Schizophrenia, unspecified; Z88.0 Allergy status to penicillin; Z88.8 Allergy status to other drugs, medicaments and biological substances; Z79.899 Other long term (current) drug therapy
CPT/HCPCS: 59820; 76801; 84702; 85014; 85018; 87635; 88305; 93976; 96374; 96375; 99284; J0131; J1100; J1885; J2250; J2405; J3010

== ENCOUNTER → 2023-06-05 | Outpatient (REF) | payer MEDICAID ==
[2023-06-05 18:44] LABS: GC DNA AMPLIFICATION NEGATIVE (NEGATIVE)
== END ==
LOC: M LAB REF 16:37
PROVIDERS: ATTEND Nurse Practitioner Family
DX: R10.9 Unspecified abdominal pain (principal); Z11.3 Encounter for screening for infections with a predominantly sexual mode of transmission

== ENCOUNTER 2023-08-06 12:20 | Emergency (ER) | payer MEDICAID ==
[~2023-08-06] VITALS: Ht 157.5 cm; Wt 97.6 kg
[~2023-08-06 12:20] MED LIST changes: +VITA200016 PO
[2023-08-06 15:12] LABS: HCG, SERUM QUALITATIVE NEGATIVE (NEGATIVE)
[2023-08-06 16:23] VITALS: BP 130/74; TEMP 97.5; O2SAT 99
== END 2023-08-06 16:26 | disposition home or self-care (01) ==
LOC: M ED 13:25
DX: R05.9 Cough, unspecified (principal); N91.2 Amenorrhea, unspecified; F43.10 Post-traumatic stress disorder, unspecified; Z88.0 Allergy status to penicillin; Z88.8 Allergy status to other drugs, medicaments and biological substances

== ENCOUNTER → 2023-09-02 | Outpatient (REF) | payer MEDICAID ==
[~2023-09-02] MED LIST changes: +IBUP-1022 PO; +OXYC1TAB23 PO
== END ==
LOC: M LAB REF 16:31
PROVIDERS: ATTEND Nurse Practitioner Family
DX: R10.9 Unspecified abdominal pain (principal)

== ENCOUNTER 2023-09-03 10:10 | Day surgery (SDC) | payer MEDICAID ==
[~2023-09-03] VITALS: Ht 154.9 cm; Wt 99.4 kg
[~2023-09-03 10:10] MED LIST changes: -IBUP-1022 PO; -OXYC1TAB23 PO
[2023-09-03] MEDS ORDERED: LR 1,000 ML IV SCH ×2 (11:05→14:25)
[2023-09-03 11:20] LABS: HEMATOCRIT 39.2 % (36.0-47.0); HEMOGLOBIN 13.1 g/dl (12.0-15.5); MEAN CORPUSCULAR HEMOGLOBIN 27.3 pg (27.0-33.0); MEAN CORPUSCULAR HGB CONC 33.4 g/dl (32.0-36.5); MEAN CORPUSCULAR VOLUME 81.7 fl (80.0-96.0); PLATELET COUNT, AUTOMATED 250 10^3/uL (150-450); WHITE BLOOD COUNT 10.4 10^3/uL (4.0-10.0)
[2023-09-03] MEDS ORDERED: ACETAMINOPHEN 1000MG 100ML IV BAG As Ordered ONE (12:33)
[2023-09-03] MEDS ORDERED: LIDOCAINE 2% 100MG/5ML SDV (FOR ANES.) As Ordered ONE (12:33)
[2023-09-03] MEDS ORDERED: ROCURONIUM BROMIDE 50MG/5ML VIAL As Ordered ONE (12:33)
[2023-09-03] MEDS ORDERED: SUGAMMADEX SODIUM 500 MG/5 ML VIAL (BRIDION) As Ordered ONE (12:33)
[2023-09-03] MEDS ORDERED: propofoL 200 MG/20 ML VIAL As Ordered ONE (12:34)
[2023-09-03] MEDS ORDERED: ONDANSETRON 4MG 2ML VIAL As Ordered ONE (12:34)
[2023-09-03] MEDS ORDERED: MIDAZOLAM INJ 2MG/2ML VIAL As Ordered ONE (12:36)
[2023-09-03] MEDS ORDERED: fentaNYL 100 MCG/2 ML INJECTION As Ordered ONE (12:36)
[2023-09-03] MEDS ORDERED: KETOROLAC 60MG 2ML VIAL As Ordered ONE (13:08)
[2023-09-03] MEDS ORDERED: oxyCODONE 5MG TAB PO PRN (13:55)
[2023-09-03] MEDS ORDERED: ONDANSETRON 4MG 2ML VIAL IV PRN (13:55)
[2023-09-03] MEDS ORDERED: fentaNYL 100 MCG/2 ML INJECTION IV PRN (13:55)
[2023-09-03] MEDS: HYDROMORPHONE HCL 0.5 MG/ 0.5 ML SYRINGE IV PRN ×2 (14:11→14:18)
[2023-09-03] MEDS ORDERED: IBUP-1022 PO (14:18)
[2023-09-03] MEDS ORDERED: OXYC1TAB23 PO (14:18)
[2023-09-03] MEDS ORDERED: PERCOCET 5MG/325MG TAB PO PRN (14:25)
[2023-09-03 16:17] VITALS: BP 127/59; TEMP 97.3; O2SAT 96
== END 2023-09-03 16:21 | disposition home or self-care (01) ==
LOC: M SDC 10:10
PROVIDERS: ATTEND Specialist
DX: Z30.2 Encounter for sterilization (principal); M26.602 Left temporomandibular joint disorder, unspecified; Z90.721 Acquired absence of ovaries, unilateral; K21.9 Gastro-esophageal reflux disease without esophagitis
CPT/HCPCS: 36415; 58661; 81025; 85027; 88302; J0131; J0665; J1100; J1170; J1885; J2250; J2405; J3010

== ENCOUNTER → 2023-09-10 | Outpatient (CLI) | payer MEDICAID ==
[~2023-09-10] MED LIST changes: +IBUP-1022 PO; +OMEP40CA5; +OXYC1TAB23 PO
== END ==
LOC: M RAD 09:49
PROVIDERS: ATTEND Nurse Practitioner Family
DX: K43.9 Ventral hernia without obstruction or gangrene (principal)

== ENCOUNTER 2023-09-11 10:47 | Emergency (ER) | payer MEDICAID ==
[~2023-09-11] VITALS: Ht 162.6 cm; Wt 98.4 kg
[~2023-09-11 10:47] MED LIST changes: -OMEP40CA5
[2023-09-11] MEDS ORDERED: OMEP40CA5 (10:57)
[2023-09-11] MEDS ORDERED: KETOROLAC 30 MG/ML 1ML VIAL IV ONE (12:00)
[2023-09-11] MEDS ORDERED: NS 1,000 ML IV ONE (12:00)
[2023-09-11 12:22] LABS: BASO % 0.4 % (0.0-1.0); EOS # 0.2 10^3/uL (0.0-0.5); EOS % 2.7 % (0.0-3.0); HEMATOCRIT 36.1 % (36.0-47.0); HEMOGLOBIN 11.9 g/dl (12.0-15.5); LYMPH # 2.2 10^3/uL (1.5-5.0); LYMPH % 28.2 % (24.0-44.0); MEAN CORPUSCULAR HEMOGLOBIN 27.6 pg (27.0-33.0); MEAN CORPUSCULAR VOLUME 83.8 fl (80.0-96.0); MONO # 0.5 10^3/uL (0.0-0.8); MONO % 6.3 % (2.0-8.0); NEUTROPHILS # 4.9 10^3/uL (1.5-8.5); NEUTROPHILS % 62.1 % (36.0-66.0); PLATELET COUNT, AUTOMATED 220 10^3/uL (150-450); RED BLOOD COUNT 4.31 10^6/uL (4.00-5.40); WHITE BLOOD COUNT 7.8 10^3/uL (4.0-10.0)
[2023-09-11 12:37] LABS: INR 1.08; PROTHROMBIN TIME 13.7 SECONDS (12.5-14.5)
[2023-09-11 12:38] LABS: PARTIAL THROMBOPLASTIN TIME 32.1 SECONDS (24.8-34.2)
[2023-09-11 12:48] LABS: LIPASE 24 U/L (12-53)
[2023-09-11 12:50] LABS: ALBUMIN 3.8 G/DL (3.2-5.2); ALKALINE PHOSPHATASE 79 U/L (46-116); ALT/SGPT 11 U/L (7.0-40); AST/SGOT 9 U/L (<34); BILIRUBIN,DIRECT 0.2 MG/DL (<0.4); BILIRUBIN,TOTAL 0.7 MG/DL (0.3-1.2); BLOOD UREA NITROGEN 12 MG/DL (9-23); CALCIUM LEVEL 8.9 MG/DL (8.5-10.1); CARBON DIOXIDE LEVEL 26 MMOL/L (20-31); CHLORIDE LEVEL 106 MMOL/L (98-107); CK-MB VALUE MASS < 1.0 NG/ML (<3.6); CPK CREATINE PHOSPHOKINASE 57 U/L (34-145); CREATININE FOR GFR 0.64 MG/DL (0.55-1.30); GLOMERULAR FILTRATION RATE > 60.0 (>60); GLUCOSE, FASTING 78 MG/DL (60-100); MB/CK RELATIVE INDEX 1.75 (< OR =4); POTASSIUM SERUM 3.5 MMOL/L (3.5-5.1); SODIUM LEVEL 138 MMOL/L (136-145); TOTAL PROTEIN 6.7 G/DL (5.7-8.2)
[2023-09-11] MEDS ORDERED: ISOVUE-370 76% 100ML VIAL As Ordered ONE (12:53)
[2023-09-11 13:19] LABS: HCG, SERUM QUALITATIVE NEGATIVE (NEGATIVE)
[2023-09-11] MEDS ORDERED: MIRA3350 PO (13:43)
[2023-09-11 13:47] VITALS: BP 128/60; TEMP 96.5; O2SAT 100
== END 2023-09-11 14:37 | disposition home or self-care (01) ==
LOC: M ED 10:47
DX: J98.11 Atelectasis (principal); K59.00 Constipation, unspecified; R00.1 Bradycardia, unspecified; K21.9 Gastro-esophageal reflux disease without esophagitis; F20.9 Schizophrenia, unspecified; F32.A Depression, unspecified; F41.9 Anxiety disorder, unspecified; F17.200 Nicotine dependence, unspecified, uncomplicated; Z88.0 Allergy status to penicillin; Z88.8 Allergy status to other drugs, medicaments and biological substances; Z79.83 Long term (current) use of bisphosphonates; Z79.899 Other long term (current) drug therapy
CPT/HCPCS: 71275; 74177; 80048; 80076; 82550; 82553; 83690; 84703; 85025; 85610; 85730; 93005; 94010; 94760; 96361; 96374; 99285; J1885; Q9967

== ENCOUNTER → 2023-11-27 | Outpatient (CLI) | payer MEDICAID ==
[~2023-11-27] MED LIST changes: -MIRA1POW3 PO; +MIRA33506 PO; +OMEP40CA5
[2023-11-27 16:47] LABS: APPEARANCE, URINE HAZY (CLEAR); BACTERIA, URINE AUTO NEGATIVE (NEGATIVE); BILIRUBIN, URINE AUTO NEGATIVE (NEGATIVE); BLOOD, URINE BLOOD NEGATIVE (NEGATIVE); COLOR, URINE YELLOW (YELLOW); GLUCOSE, URINE (UA) AUTO NEGATIVE (NEGATIVE); KETONE, URINE AUTO NEGATIVE (NEGATIVE); LEUKOCYTE ESTERASE, URINE AUTO NEGATIVE (NEGATIVE); MUCUS, URINE SMALL (NEGATIVE); NITRITE, URINE AUTO NEGATIVE (NEGATIVE); PROTEIN, URINE AUTO NEGATIVE (NEGATIVE); RBC, URINE AUTO 1 /HPF (0-3); SPECIFIC GRAVITY URINE AUTO 1.028 (1.002-1.035); SQUAMOUS EPITHELIAL CELL UR AU 13 /HPF (0-6); UROBILINOGEN, URINE AUTO 0.2 mg/dL (0.0-2.0); WBC, URINE AUTO 1 /HPF (0-3)
== END ==
LOC: M RAD 12:59
PROVIDERS: ATTEND Physician Assistant
DX: N39.0 Urinary tract infection, site not specified (principal)

== ENCOUNTER → 2023-12-30 | Outpatient (REF) | payer MEDICAID ==
[2023-12-30 18:28] LABS: HEMATOCRIT 36.5 % (36.0-47.0); HEMOGLOBIN 12.3 g/dl (12.0-15.5); MEAN CORPUSCULAR HEMOGLOBIN 29.3 pg (27.0-33.0); MEAN CORPUSCULAR HGB CONC 33.7 g/dl (32.0-36.5); MEAN CORPUSCULAR VOLUME 86.9 fl (80.0-96.0); PLATELET COUNT, AUTOMATED 229 10^3/uL (150-450); WHITE BLOOD COUNT 6.7 10^3/uL (4.0-10.0)
[2023-12-30 18:49] LABS: THYROID STIMULATING HORMONE 0.722 uIU/ML (0.55-4.78)
[2023-12-30 18:51] LABS: FOLATE 22.8 NG/ML (>5.4)
[2023-12-30 18:52] LABS: ALBUMIN 3.5 G/DL (3.2-5.2); ALKALINE PHOSPHATASE 74 U/L (46-116); ALT/SGPT 11 U/L (7.0-40); AST/SGOT < 8 U/L (<34); BILIRUBIN,TOTAL 0.4 MG/DL (0.3-1.2); BLOOD UREA NITROGEN 12 MG/DL (9-23); CALCIUM LEVEL 8.4 MG/DL (8.5-10.1); CARBON DIOXIDE LEVEL 23 MMOL/L (20-31); CHLORIDE LEVEL 109 MMOL/L (98-107); CREATININE FOR GFR 0.63 MG/DL (0.55-1.30); GLOMERULAR FILTRATION RATE > 60.0 (>60); GLUCOSE, FASTING 87 MG/DL (60-100); SODIUM LEVEL 140 MMOL/L (136-145); TOTAL PROTEIN 6.6 G/DL (5.7-8.2)
[2023-12-30 18:53] LABS: VITAMIN B12 LEVEL 403 PG/ML (211-911)
== END ==
LOC: M LAB REF 16:12
PROVIDERS: ATTEND Physician Assistant
DX: F32.2 Major depressive disorder, single episode, severe without psychotic features (principal)

== ENCOUNTER → 2024-01-23 | Outpatient (REF) | payer MEDICAID ==
[2024-01-23 17:55] LABS: Trichomonas vaginalis (AMP) NOT DETECTED (NEGATIVE)
[2024-01-23 18:18] LABS: GC DNA AMPLIFICATION NEGATIVE (NEGATIVE)
== END ==
LOC: M LAB REF 16:18
PROVIDERS: ATTEND Physician Assistant
DX: Z11.3 Encounter for screening for infections with a predominantly sexual mode of transmission (principal); N76.0 Acute vaginitis

== ENCOUNTER 2024-08-14 10:45 | Day surgery (SDC) | payer MEDICAID ==
[~2024-08-14] VITALS: Ht 152.4 cm; Wt 96.2 kg
[~2024-08-14 10:45] MED LIST changes: +ONDA-282 PO; -ONDA4TAB6 PO; -SENN-111 PO; +SENN-165 PO
[2024-08-14 12:59] VITALS: BP 115/56; TEMP 98; O2SAT 99
== END 2024-08-14 13:53 | disposition home or self-care (01) ==
LOC: M OPP 10:45
PROVIDERS: ATTEND Surgery
DX: R10.84 Generalized abdominal pain (principal); K59.04 Chronic idiopathic constipation; K44.9 Diaphragmatic hernia without obstruction or gangrene; K21.9 Gastro-esophageal reflux disease without esophagitis; F41.9 Anxiety disorder, unspecified; F31.9 Bipolar disorder, unspecified; G43.909 Migraine, unspecified, not intractable, without status migrainosus; F17.210 Nicotine dependence, cigarettes, uncomplicated; Z88.0 Allergy status to penicillin; Z88.8 Allergy status to other drugs, medicaments and biological substances

== ENCOUNTER → 2024-12-01 | Outpatient (CLI) | payer MEDICAID | LOC: M RAD 08:54 | PROVIDERS: ATTEND Specialist | DX: R10.2 Pelvic and perineal pain (principal) ==

== ENCOUNTER → 2024-12-03 | Outpatient (REF) | payer MEDICAID ==
[2024-12-03 14:46] LABS: APPEARANCE, URINE HAZY (CLEAR); BACTERIA, URINE AUTO NEGATIVE (NEGATIVE); BILIRUBIN, URINE AUTO NEGATIVE (NEGATIVE); BLOOD, URINE BLOOD NEGATIVE (NEGATIVE); COLOR, URINE YELLOW (YELLOW); GLUCOSE, URINE (UA) AUTO NEGATIVE (NEGATIVE); KETONE, URINE AUTO NEGATIVE (NEGATIVE); LEUKOCYTE ESTERASE, URINE AUTO NEGATIVE (NEGATIVE); MUCUS, URINE SMALL (NEGATIVE); NITRITE, URINE AUTO NEGATIVE (NEGATIVE); PROTEIN, URINE AUTO 1+ mg/dL (NEGATIVE); RBC, URINE AUTO 1 /HPF (0-3); SQUAMOUS EPITHELIAL CELL UR AU 10 /HPF (0-6); UROBILINOGEN, URINE AUTO 0.2 mg/dL (0.0-2.0); WBC, URINE AUTO 0 /HPF (0-3)
[2024-12-03 15:30] LABS: Trichomonas vaginalis (AMP) NOT DETECTED (NEGATIVE)
[2024-12-03 15:54] LABS: GC DNA AMPLIFICATION NEGATIVE (NEGATIVE)
== END ==
LOC: M LAB REF 13:56
PROVIDERS: ATTEND Physician Assistant
DX: N39.0 Urinary tract infection, site not specified (principal); Z20.2 Contact with and (suspected) exposure to infections with a predominantly sexual mode of transmission

== ENCOUNTER 2025-02-25 13:44 | Emergency (ER) | payer MEDICAID ==
[~2025-02-25] VITALS: Ht 152.4 cm; Wt 96.8 kg
[2025-02-25] MEDS ORDERED: METR-265 (14:02)
[2025-02-25 17:50] LABS: PLATELET COUNT, AUTOMATED 239 10^3/uL (150-450)
[2025-02-25] MEDS: ONDANSETRON 4MG 2ML VIAL IV ONE (17:50)
[2025-02-25 18:05] LABS: ALT/SGPT 16 U/L (7.0-40); AST/SGOT 13 U/L (<34); CALCIUM LEVEL 9.4 MG/DL (8.5-10.1); CARBON DIOXIDE LEVEL 26 MMOL/L (20-31); CHLORIDE LEVEL 104 MMOL/L (98-107); CREATININE FOR GFR 0.61 MG/DL (0.55-1.30); GLOMERULAR FILTRATION RATE > 90.0 (>60); POTASSIUM SERUM 3.8 MMOL/L (3.5-5.1); SODIUM LEVEL 142 MMOL/L (136-145)
[2025-02-25] MEDS ORDERED: ISOVUE-370 76% 100 ML VIAL As Ordered ONE (18:19)
[2025-02-25] MEDS: NYSTATIN 100,000 UNITS/GM TOPICAL PWD 15GM TOP SCH (19:58)
[2025-02-25 20:06] LABS: KETONE, URINE AUTO RFX NEGATIVE (NEGATIVE); LEUKOCYTE ESTERASE UR AUTO RFX NEGATIVE (NEGATIVE); NITRITE, URINE AUTO RFX NEGATIVE (NEGATIVE); RBC, URINE AUTO RFX 1 /HPF (0-3); SQUAM EPITHELIAL CELL UR AURFX 3 /HPF (0-6); WBC, URINE AUTO RFX 1 /HPF (0-3)
[2025-02-25 21:08] VITALS: BP 108/55; TEMP 97.7; O2SAT 95
[2025-02-25] MEDS ORDERED: ONDA-282 PO (21:17)
[2025-02-25] MEDS ORDERED: NYST1POW3 TOP (21:20)
== END 2025-02-25 21:26 | disposition home or self-care (01) ==
LOC: EDBD 13:44 → M ED 13:44
DX: K29.70 Gastritis, unspecified, without bleeding (principal); R53.83 Other fatigue; R16.0 Hepatomegaly, not elsewhere classified; Z88.0 Allergy status to penicillin; Z88.8 Allergy status to other drugs, medicaments and biological substances; Z79.83 Long term (current) use of bisphosphonates; Z79.899 Other long term (current) drug therapy
CPT/HCPCS: 74177; 80053; 81001; 83690; 85027; 96374; 99284; J2405; Q9967

== ENCOUNTER 2025-03-01 18:26 | Emergency (ER) | payer MEDICAID ==
[~2025-03-01] VITALS: Ht 152.4 cm; Wt 97.9 kg
[~2025-03-01 18:26] MED LIST changes: +METR-265; +NYST1POW3 TOP
[2025-03-01 22:08] LABS: BASO # 0.0 10^3/uL (0.0-0.2); BASO % 0.4 % (0.0-1.0); EOS # 0.3 10^3/uL (0.0-0.5); EOS % 2.6 % (0.0-3.0); LYMPH # 3.1 10^3/uL (1.5-5.0); LYMPH % 32.9 % (24.0-44.0); MONO # 0.7 10^3/uL (0.0-0.8); MONO % 7.1 % (2.0-8.0); NEUTROPHILS # 5.4 10^3/uL (1.5-8.5); NEUTROPHILS % 56.7 % (36.0-66.0); PLATELET COUNT, AUTOMATED 229 10^3/uL (150-450)
[2025-03-01 22:14] LABS: KETONE, URINE AUTO RFX NEGATIVE (NEGATIVE); NITRITE, URINE AUTO RFX NEGATIVE (NEGATIVE); RBC, URINE AUTO RFX TNTC /HPF (0-3); SQUAM EPITHELIAL CELL UR AURFX 4 /HPF (0-6)
[2025-03-01 22:16] LABS: LEUKOCYTE ESTERASE UR AUTO RFX 1+ (NEGATIVE); WBC, URINE AUTO RFX 21 /HPF (0-3)
[2025-03-01 22:39] LABS: CALCIUM LEVEL 9.3 MG/DL (8.5-10.1); CARBON DIOXIDE LEVEL 25 MMOL/L (20-31); CHLORIDE LEVEL 106 MMOL/L (98-107); CREATININE FOR GFR 0.70 MG/DL (0.55-1.30); GLOMERULAR FILTRATION RATE > 90.0 (>60); POTASSIUM SERUM 4.1 MMOL/L (3.5-5.1); SODIUM LEVEL 141 MMOL/L (136-145)
[2025-03-01 23:13] LABS: Trichomonas vaginalis (AMP) NOT DETECTED (NEGATIVE)
[2025-03-01 23:36] LABS: GC DNA AMPLIFICATION NEGATIVE (NEGATIVE)
[2025-03-02 02:47] LABS: HCG, SERUM QUALITATIVE NEGATIVE (NEGATIVE)
[2025-03-02 09:59] VITALS: BP 121/68; TEMP 98.2; O2SAT 98
== END 2025-03-02 10:05 | disposition home or self-care (01) ==
LOC: M ED 18:26
DX: N93.8 Other specified abnormal uterine and vaginal bleeding (principal); F41.9 Anxiety disorder, unspecified; Z79.83 Long term (current) use of bisphosphonates; Z79.899 Other long term (current) drug therapy; Z88.0 Allergy status to penicillin; Z88.8 Allergy status to other drugs, medicaments and biological substances

== ENCOUNTER 2025-05-07 22:48 | Emergency (ER) | payer MEDICAID ==
[~2025-05-07] VITALS: Ht 162.6 cm; Wt 96.7 kg
[~2025-05-07 22:48] MED LIST changes: -IBUP-1022 PO; +IBUP600T42 PO
[2025-05-07 22:56] VITALS: TEMP 98.1
[2025-05-08] MEDS: BENZONATATE 100 MG CAPSULE PO ONE (00:29)
[2025-05-08] MEDS: ALBUTEROL SULFATE 2.5 MG/0.5 ML INH CONCENTRATE NEB SOLN NEB ONE (00:49)
[2025-05-08 01:30] VITALS: BP 121/58; O2SAT 99
[2025-05-08] MEDS ORDERED: MUCI120T PO (11:38)
[2025-05-08] MEDS ORDERED: BENZ200C70 PO (11:38)
== END 2025-05-08 01:43 | disposition home or self-care (01) ==
LOC: M ED 22:48
DX: J20.6 Acute bronchitis due to rhinovirus (principal); Z79.899 Other long term (current) drug therapy; Z88.0 Allergy status to penicillin; Z88.8 Allergy status to other drugs, medicaments and biological substances

== ENCOUNTER 2025-05-08 10:02 | Emergency (ER) | payer MEDICAID ==
[~2025-05-08] VITALS: Ht 162.6 cm; Wt 94.0 kg
[2025-05-08] MEDS ORDERED: MUCI120T PO (11:38)
[2025-05-08] MEDS ORDERED: BENZ200C70 PO (11:38)
[2025-05-08] MEDS: BENZONATATE 100 MG CAPSULE PO ONE (11:43)
[2025-05-08] MEDS: IPRATROPIUM 0.5 MG/ALBUTEROL 2.5 MG INH SOL UD 3 ML NEB ONE (11:49)
[2025-05-08 12:20] VITALS: BP 124/65; TEMP 98.5; O2SAT 94
== END 2025-05-08 12:59 | disposition home or self-care (01) ==
LOC: M ED 10:02
DX: J20.6 Acute bronchitis due to rhinovirus (principal); F41.8 Other specified anxiety disorders; K21.9 Gastro-esophageal reflux disease without esophagitis; F32.A Depression, unspecified; M26.602 Left temporomandibular joint disorder, unspecified; Z88.0 Allergy status to penicillin; Z88.8 Allergy status to other drugs, medicaments and biological substances; Z79.899 Other long term (current) drug therapy

== ENCOUNTER 2025-05-08 22:44 | Inpatient (IN) | payer MEDICAID ==
[~2025-05-08] VITALS: Ht 165.1 cm; Wt 120.0 kg
[~2025-05-08 22:44] MED LIST changes: +BENZ200C70 PO; +MUCI120T PO
[2025-05-08 23:16] LABS: PLATELET COUNT, AUTOMATED 190 10^3/uL (150-450)
[2025-05-08 23:37] LABS: AMPHETAMINES LEVEL URINE NEGATIVE (NEGATIVE); BENZODIAZEPINES URINE NEGATIVE (NEGATIVE)
[2025-05-08 23:38] LABS: BARBITURATES URINE NEGATIVE (NEGATIVE); CANNABINOIDS URINE NEGATIVE (NEGATIVE); COCAINE METABOLITE URINE NEGATIVE (NEGATIVE); METHADONE URINE NEGATIVE (NEGATIVE); OPIATES URINE NEGATIVE (NEGATIVE); PHENCYCLIDINE URINE NEGATIVE (NEGATIVE)
[2025-05-08 23:42] LABS: ETHYL ALCOHOL (ETHANOL) < 0.003 % (0.000-0.010)
[2025-05-08 23:44] LABS: ALT/SGPT 21 U/L (7.0-40); AST/SGOT 19 U/L (<34); CALCIUM LEVEL 9.3 MG/DL (8.5-10.1); CARBON DIOXIDE LEVEL 25 MMOL/L (20-31); CHLORIDE LEVEL 106 MMOL/L (98-107); CREATININE FOR GFR 0.66 MG/DL (0.55-1.30); GLOMERULAR FILTRATION RATE > 90.0 (>60); POTASSIUM SERUM 3.8 MMOL/L (3.5-5.1); SALICYLATE LEVEL < 3.0 MG/DL (<30); SODIUM LEVEL 143 MMOL/L (136-145)
[2025-05-09] MEDS ORDERED: ACETAMINOPHEN 325 MG TAB PO PRN (02:25)
[2025-05-09] MEDS ORDERED: MAALOX 30 ML SUSP *UDC PO PRN (02:25)
[2025-05-09] MEDS ORDERED: MOM 30 ML SUSPENSION UDC PO PRN (02:25)
[2025-05-09] MEDS ORDERED: IBUPROFEN 400 MG TAB PO PRN (02:25)
[2025-05-09 04:27] VITALS: BP 138/80; TEMP 97.7; O2SAT 98
[2025-05-09] MEDS: BENZONATATE 100 MG CAPSULE PO SCH (09:08)
[2025-05-09] MEDS: guaiFENesin ER TABLET 600 MG TAB PO SCH (09:08)
[2025-05-09] MEDS ORDERED: HOME MED LIST COMPLETE! XX SCH (09:15)
[2025-05-09 14:58] VITALS: BP 125/78; TEMP 97.9; O2SAT 97
[2025-05-09] MEDS: FIBER-CON 625 MG TAB PO SCH (20:28)
[2025-05-09] MEDS: SERTRALINE HCL 25 MG TABLET PO SCH (20:28)
[2025-05-09] MEDS: DOCUSATE SODIUM 100 MG CAPSULE PO SCH (20:28)
[2025-05-10 06:37] VITALS: BP 139/71; TEMP 98.2; O2SAT 97
[2025-05-10 15:48] VITALS: BP 122/73; TEMP 97.9; O2SAT 97
[2025-05-11 06:33] VITALS: BP 115/57; TEMP 97.1; O2SAT 100
[2025-05-11 15:14] VITALS: BP 120/70; TEMP 97.8; O2SAT 98
[2025-05-11] MEDS: SERTRALINE HCL 50 MG TAB PO SCH (20:03)
[2025-05-12 06:34] VITALS: BP 135/85; TEMP 97.5; O2SAT 95
[2025-05-12 15:07] VITALS: BP 128/78; TEMP 97.7; O2SAT 95
[2025-05-13 06:44] VITALS: BP 129/62; TEMP 97.6; O2SAT 99
[2025-05-13 15:45] VITALS: BP 129/62; TEMP 97.6; O2SAT 99
[2025-05-13 16:24] VITALS: BP 124/70; TEMP 98; O2SAT 97
[2025-05-14 06:24] VITALS: BP 109/50; TEMP 98.3; O2SAT 100
[2025-05-14 11:40] VITALS: BP 109/50; TEMP 98.3; O2SAT 100
[2025-05-14 15:25] VITALS: BP 133/68; TEMP 98.2; O2SAT 97
[2025-05-15 06:44] VITALS: BP 128/75; TEMP 97.9; O2SAT 9
[2025-05-15 08:47] VITALS: BP 128/75; TEMP 97.9; O2SAT 9
[2025-05-15 15:29] VITALS: BP 132/81; TEMP 98.5; O2SAT 98
[2025-05-16 06:35] VITALS: BP 126/68; TEMP 97.1; O2SAT 97
[2025-05-16 15:20] VITALS: BP 136/77; TEMP 98.6; O2SAT 100
[2025-05-16] MEDS: traZODone 50 MG TAB PO PRN (20:29)
[2025-05-16] MEDS: LORazepam 1 MG TAB PO PRN (20:30)
[2025-05-17 06:54] VITALS: BP 127/63; TEMP 98.2; O2SAT 97
[2025-05-17] MEDS ORDERED: IPRATROPIUM 0.5 MG/ALBUTEROL 2.5 MG INH SOL UD 3 ML NEB PRN (11:25)
[2025-05-17 15:01] VITALS: BP 136/81; TEMP 98.7; O2SAT 95
[2025-05-18 06:25] VITALS: BP 124/66; TEMP 98; O2SAT 97
[2025-05-18] MEDS ORDERED: TRAZ-252 PO (10:31)
[2025-05-18] MEDS ORDERED: COLA100C5 PO (10:31)
[2025-05-18] MEDS ORDERED: FIBE62TA PO (10:31)
[2025-05-18] MEDS ORDERED: MUCI600T31 PO (10:31)
[2025-05-18] MEDS ORDERED: SERT50TA29 PO (10:31)
== END 2025-05-18 12:51 | disposition home or self-care (01) | DRG 751 ==
LOC: M ED 22:44 → M ED INP 05-09 02:25 → M PSY 05-09 04:01
PROVIDERS: ADMIT Student in an Organized Health Care Education/Training Program; ATTEND Student in an Organized Health Care Education/Training Program
DX: F32.1 Major depressive disorder, single episode, moderate (principal); R45.851 Suicidal ideations; G47.00 Insomnia, unspecified; F41.9 Anxiety disorder, unspecified; F79 Unspecified intellectual disabilities; Z62.810 Personal history of physical and sexual abuse in childhood; Z91.410 Personal history of adult physical and sexual abuse; K21.9 Gastro-esophageal reflux disease without esophagitis; K44.9 Diaphragmatic hernia without obstruction or gangrene; E66.01 Morbid (severe) obesity due to excess calories; F42.8 Other obsessive-compulsive disorder; Z79.899 Other long term (current) drug therapy; Z88.0 Allergy status to penicillin; Z88.8 Allergy status to other drugs, medicaments and biological substances; Z68.41 Body mass index [BMI] 40.0-44.9, adult; E55.9 Vitamin D deficiency, unspecified; F43.10 Post-traumatic stress disorder, unspecified; K58.1 Irritable bowel syndrome with constipation

== ENCOUNTER 2025-06-08 10:53 | Emergency (ER) | payer MEDICAID ==
[~2025-06-08 10:53] MED LIST changes: +FIBE62TA PO; +MUCI600T31 PO; +SERT50TA29 PO; +TRAZ-252 PO
[2025-06-08] MEDS: ALBUTEROL SULFATE 2.5 MG/0.5 ML INH CONCENTRATE NEB SOLN NEB ONE (14:29)
[2025-06-08 14:40] LABS: BASO # 0.1 10^3/uL (0.0-0.2); BASO % 0.5 % (0.0-1.0); EOS # 0.3 10^3/uL (0.0-0.5); EOS % 3.2 % (0.0-3.0); LYMPH # 2.4 10^3/uL (1.5-5.0); LYMPH % 24.7 % (24.0-44.0); MONO # 0.6 10^3/uL (0.0-0.8); MONO % 6.5 % (2.0-8.0); NEUTROPHILS # 6.4 10^3/uL (1.5-8.5); NEUTROPHILS % 64.8 % (36.0-66.0); PLATELET COUNT, AUTOMATED 211 10^3/uL (150-450)
[2025-06-08 15:04] LABS: ALT/SGPT 11 U/L (7.0-40); AST/SGOT 16 U/L (<34); CALCIUM LEVEL 9.3 MG/DL (8.5-10.1); CARBON DIOXIDE LEVEL 26 MMOL/L (20-31); CHLORIDE LEVEL 104 MMOL/L (98-107); CREATININE FOR GFR 0.65 MG/DL (0.55-1.30); GLOMERULAR FILTRATION RATE > 90.0 (>60); POTASSIUM SERUM 4.1 MMOL/L (3.5-5.1); SODIUM LEVEL 139 MMOL/L (136-145)
[2025-06-08 15:09] LABS: HCG, SERUM QUALITATIVE NEGATIVE (NEGATIVE)
[2025-06-08] MEDS ORDERED: ISOVUE-370 76% 100 ML VIAL As Ordered ONE (15:40)
[2025-06-08 16:48] LABS: CK-MB VALUE MASS < 1.0 NG/ML (<3.6)
[2025-06-08 16:50] LABS: CPK CREATINE PHOSPHOKINASE 43 U/L (34-145)
[2025-06-08] MEDS: FLUTICASONE PROPIONATE 0.05% NASAL SPRAY 16 GM NARES ONE (18:26)
[2025-06-08] MEDS ORDERED: FLON1SPR NARES (19:09)
[2025-06-08 19:17] VITALS: BP 122/63; TEMP 97.2; O2SAT 98
== END 2025-06-08 19:40 | disposition home or self-care (01) ==
LOC: M ED 10:53
DX: F32.A Depression, unspecified (principal); R09.82 Postnasal drip; J98.11 Atelectasis; R00.1 Bradycardia, unspecified; I45.10 Unspecified right bundle-branch block; F20.9 Schizophrenia, unspecified; F41.9 Anxiety disorder, unspecified; R51.9 Headache, unspecified; Z88.0 Allergy status to penicillin; Z88.8 Allergy status to other drugs, medicaments and biological substances; Z79.899 Other long term (current) drug therapy
CPT/HCPCS: 36415; 71275; 80048; 80076; 82550; 82553; 84484; 84703; 85025; 87486; 87581; 87633; 87798; 93005; 93041; 99285; Q9967

== ENCOUNTER → 2025-06-17 | Outpatient (REF) | payer MEDICAID ==
[~2025-06-17] MED LIST changes: +FLON1SPR NARES
== END ==
LOC: M LAB REF 17:30
PROVIDERS: ATTEND Plastic Surgery Surgery of the Hand
DX: D22.39 Melanocytic nevi of other parts of face (principal)

== ENCOUNTER 2025-08-03 09:39 | Emergency (ER) | payer MEDICAID ==
[2025-08-03] MEDS: ALBUTEROL SULFATE 2.5 MG/0.5 ML INH CONCENTRATE NEB SOLN NEB ONE (10:17)
[2025-08-03] MEDS ORDERED: PRED20TA PO (12:33)
[2025-08-03] MEDS ORDERED: VENTAER INH (12:33)
[2025-08-03 13:23] VITALS: BP 115/55; TEMP 98.3; O2SAT 98
== END 2025-08-03 13:34 | disposition home or self-care (01) ==
LOC: M ED 09:39
DX: J98.01 Acute bronchospasm (principal); J68.8 Other respiratory conditions due to chemicals, gases, fumes and vapors; K21.9 Gastro-esophageal reflux disease without esophagitis; E66.9 Obesity, unspecified; F41.9 Anxiety disorder, unspecified; F32.A Depression, unspecified; Z88.0 Allergy status to penicillin; Z88.8 Allergy status to other drugs, medicaments and biological substances; Z79.899 Other long term (current) drug therapy; Z79.52 Long term (current) use of systemic steroids; Y92.9 Unspecified place or not applicable; Y93.E5 Activity, floor mopping and cleaning; Y99.9 Unspecified external cause status